=== PATIENT | male | born 1970 | race Caucasian/White ===

== ENCOUNTER 2021-01-21 09:04 | Inpatient (IN) | payer BC ==
[2021-01-21] VITALS (20 sets, daily range): BP systolic 79–133; BP diastolic 52–77
[~2021-01-21] VITALS: Ht 177.8 cm; Wt 88.6 kg
[2021-01-21] MEDS ORDERED: HEPARIN for IV BOLUS 10,000 UNIT/10 ML VIAL. ONE ×2 (09:18→10:05)
[2021-01-21] MEDS ORDERED: MIDAZOLAM HCL/PF 5 MG/5 ML VIAL. NS ONE (09:30)
--- NOTE | 2021-01-21 09:36 | RAD ---
Single AP view of the chest. Comparison: None. Indication: Intubation and chest pain Findings: Endotracheal tube is in good position 2.5 cm above the gibran. Nasogastric tube is seen with tip in t he body the stomach. The heart is at the upper limits of normal. There is no pneumothorax or effusio n. Bilateral interstitial opacities are identified. Impression: 1. Bilateral interstitial opacities likely CHF, however, atypical viral infection is also possible. Electronically signed by: Emory Rios MD (01/21/2021 9:34 AM) [id number]
[2021-01-21 09:39] LABS: BASO # 0.2 x10^3/uL (0.0-0.2); BASO % 1 % (0-3); EOS # 0.2 x10^3/uL (0.0-0.7); EOS % 1 % (0-3); HEMATOCRIT 47.8 % (39.0-53.0); HEMOGLOBIN 15.1 g/dL (13.0-17.5); LYMPH # 9.6 x10^3/uL (1.0-4.8); LYMPH % 62 % (24-48); MEAN CORPUSCULAR HEMOGLOBIN 32 pg (25-35); MEAN CORPUSCULAR HGB CONC 32 g/dL (31-37); MEAN CORPUSCULAR VOLUME 103 fL (79-100); MONO # 0.7 x10^3/uL (0.0-1.1); MONO % 5 % (0-9); NEUT # 4.8 x10^3/uL (1.8-7.7); NEUT % 31 % (31-73); PLATELET COUNT 304 x10^3/uL (140-400); RED BLOOD COUNT 4.66 x10^6/uL (4.30-5.70); RED CELL DISTRIBUTION WIDTH 14.6 % (11.5-14.5)
[2021-01-21] MEDS ORDERED: EPINEPHrine 1 MG/ML VIAL ONE (09:43)
[2021-01-21] MEDS ORDERED: EPINEPHrine SYRINGE 1 MG/10 ML SYRINGE ONE ×2 (09:44→09:46)
[2021-01-21] MEDS ORDERED: AMIODARONE 150 MG/3 ML VIAL ONE (09:46)
--- NOTE | 2021-01-21 09:46 | PHYS DOC ---
General Adult EDM: Chief Complaint: CHEST PAIN HPI: HPI: Patient is a 50-year-old male who was brought here by EMS from his workplace due to chest pain. EKG was done by EMS report of posterior wall RI? Code STEMI was activated . Patient became unresponsive, CODED in the back of the ambulance on the way here. Fishing Tackle Repairer proceeded with CPR and ROSC was achieved. Patient became awake and alert, he was brought here emergently. Upon arrival to ER patient awake alert, but was confused. Patient then became unresponsive, went into V. fib arrest. Patient was coded per ACLS protocol. Review of Systems: Review of Systems: not able to obtain due to condition. Heart Score: C/O Chest Pain: N/A Risk Factors: Risk Factors: DM, Current or recent (<one month) smoker, HTN, HLP, family history of CAD, obesity. Risk Scores: Score 0 - 3: 2.5% MACE over next 6 weeks - Discharge Home Score 4 - 6: 20.3% MACE over next 6 weeks - Admit for Clinical Observation Score 7 - 10: 72.7% MACE over next 6 weeks - Early Invasive Strategies Current Medications: Current Medications Medications (Trade) Dose Ordered Sig/Quinton Start Time Stop Time Status Last Admin Dose Admin Heparin Sodium (Porcine) (Heparin Sodium) 10,000 unit STK-MED ONCE 01/21/21 09:18 01/21/21 09:18 DC Midazolam HCl (Versed) 5 mg 1X ONCE 01/21/21 09:30 01/21/21 09:31 UNV Physical Exam: PE: Constitutional: Well developed, well nourished, IN MODERATE acute distress, non- toxic appearance. [] HENT: Normocephalic, atraumatic, bilateral external ears normal, oropharynx moist, no oral exudates, nose normal. [] Eyes: PERRLA, EOMI, conjunctiva normal, no discharge. [] Neck: Normal range of motion, no tenderness, supple, no stridor. [] Cardiovascular:Heart rate regular rhythm, no murmur [] Lungs & Thorax: Bilateral breath sounds clear to auscultation [] Abdomen: Bowel sounds normal, soft, no tenderness, no masses, no pulsatile masses. [] Skin: WARM, PALE. Back: No tenderness, no CVA tenderness. [] Extremities: No tenderness, no cyanosis, no clubbing, ROM intact, no edema. [] Neurologic: Alert BUT CONFUSED, normal motor function, normal sensory function, no focal deficits noted. [] Psychologic: Affect normal, judgement normal, mood normal. [] Current Patient Data: Labs: Laboratory Tests Test 01/21/21 09:25 01/21/21 11:37 01/21/21 11:50 01/21/21 13:30 White Blood Count 15.5 x10^3/uL Red Blood Count 4.66 x10^6/uL Hemoglobin 15.1 g/dL Hematocrit 47.8 % Mean Corpuscular Volume 103 fL Mean Corpuscular Hemoglobin 32 pg Mean Corpuscular Hemoglobin Concent 32 g/dL Red Cell Distribution Width 14.6 % Platelet Count 304 x10^3/uL Neutrophils (%) (Auto) 31 % Lymphocytes (%) (Auto) 62 % Monocytes (%) (Auto) 5 % Eosinophils (%) (Auto) 1 % Basophils (%) (Auto) 1 % Neutrophils # (Auto) 4.8 x10^3/uL Lymphocytes # (Auto) 9.6 x10^3/uL Monocytes # (Auto) 0.7 x10^3/uL Eosinophils # (Auto) 0.2 x10^3/uL Basophils # (Auto) 0.2 x10^3/uL Segmented Neutrophils % 18 % Lymphocytes % 81 % Monocytes % 1 % Smudge Cells Present Platelet Estimate Adequate Sodium Level 133 mmol/L Potassium Level 6.2 mmol/L Chloride Level 96 mmol/L Carbon Dioxide Level 13 mmol/L Anion Gap 24 Blood Urea Nitrogen 13 mg/dL Creatinine 1.8 mg/dL Estimated GFR (Cockcroft-Gault) 40.5 BUN/Creatinine Ratio 7 Glucose Level 428 mg/dL Calcium Level 7.9 mg/dL Magnesium Level 3.2 mg/dL Total Bilirubin 0.4 mg/dL Aspartate Amino Transf (AST/SGOT) 194 U/L Alanine Aminotransferase (ALT/SGPT) 203 U/L Alkaline Phosphatase 128 U/L Troponin I Quantitative 5.019 ng/mL II-Iil-X-Type Natriuretic Peptide 50 pg/mL Total Protein 6.6 g/dL Albumin 3.4 g/dL Albumin/Globulin Ratio 1.1 Lipase 135 U/L O2 Saturation 98 % Arterial Blood pH 7.05 Arterial Blood pCO2 at Patient Temp 36 mmHg Arterial Blood pO2 at Patient Temp 148 mmHg Arterial Blood HCO3 10 mmol/L Arterial Blood Base Excess -20 mmol/L FiO2 100 SARS-CoV-2 Antigen (Rapid) Negative Test 01/21/21 17:15 O2 Saturation 99 % Arterial Blood pH 7.21 Arterial Blood pCO2 at Patient Temp 34 mmHg Arterial Blood pO2 at Patient Temp 386 mmHg Arterial Blood HCO3 13 mmol/L Arterial Blood Base Excess -13 mmol/L FiO2 100 Current Medications Medications (Trade) Dose Ordered Sig/Quinton Route PRN Reason Start Time Stop Time Status Last Admin Dose Admin Heparin Sodium (Porcine) (Heparin Sodium) 10,000 unit STK-MED ONCE .ROUTE 01/21/21 09:18 01/21/21 09:18 DC Midazolam HCl (Versed) 5 mg 1X ONCE NS 01/21/21 09:30 01/21/21 09:52 DC 01/21/21 08:00 Epinephrine HCl (Adrenalin) 1 mg STK-MED ONCE .ROUTE 01/21/21 09:43 01/21/21 09:44 DC Epinephrine HCl (EPINEPHrine SYRINGE) 1 mg STK-MED ONCE .ROUTE 01/21/21 09:44 01/21/21 09:44 DC Dopamine HCl/ Dextrose 250 ml @ As Directed STK-MED ONCE IV 01/21/21 09:46 01/21/21 09:47 DC Bivalirudin (Angiomax) 250 mg STK-MED ONCE IV 01/21/21 09:53 01/21/21 09:53 DC Nitroglycerin (Nitroglycerin) 200 mcg STK-MED ONCE .ROUTE 01/21/21 10:00 01/21/21 10:00 DC Heparin Sodium (Porcine) (Heparin Sodium) 10,000 unit STK-MED ONCE .ROUTE 01/21/21 10:05 01/21/21 10:05 DC Nitroglycerin (Nitroglycerin) 200 mcg 1X ONCE IART 01/21/21 10:30 01/21/21 10:32 DC 01/21/21 09:59 Heparin Sodium/ Sodium Chloride (HEPARIN for ARTERIAL LINE FLUSH) 1,000 unit 1X ONCE IART 01/21/21 10:30 01/21/21 10:32 DC 01/21/21 10:30 Heparin Sodium/ Sodium Chloride (HEPARIN for ARTERIAL LINE FLUSH) 1,000 unit 1X ONCE IART 01/21/21 10:30 01/21/21 10:32 DC 01/21/21 10:30 Iodixanol (Visipaque 320) 100 ml 1X ONCE IART 01/21/21 10:30 01/21/21 10:32 DC 01/21/21 10:30 Bivalirudin (Angiomax) 250 mg 1X ONCE IV 01/21/21 10:30 01/21/21 10:32 DC 01/21/21 09:54 Lidocaine HCl (Lidocaine 1% 20ml Vial) 20 ml 1X ONCE INJ 01/21/21 10:30 01/21/21 10:32 DC 01/21/21 09:49 Dopamine HCl/ Dextrose 250 ml @ 14.438 mls/ hr 1X ONCE IV 01/21/21 10:30 01/21/21 14:04 DC 01/21/21 09:48 Epinephrine HCl (EPINEPHrine SYRINGE) 1.5 mg 1X ONCE IV 01/21/21 10:15 01/21/21 10:29 DC 01/21/21 09:57 Clopidogrel Bisulfate (Plavix) 600 mg 1X ONCE PO 01/21/21 10:30 01/21/21 10:32 DC 01/21/21 10:30 Aspirin (Yung Aspirin) 325 mg 1X ONCE PO 01/21/21 10:30 01/21/21 15:44 DC 01/21/21 10:30 Heparin Sodium (Porcine) (Heparin 5,000 Units/1,000ml NS) 5,000 unit 1X ONCE IV 01/21/21 10:30 01/21/21 10:32 DC 01/21/21 10:05 Sodium Chloride 1,000 ml @ 75 mls/hr [id number] IV 01/21/21 10:30 Aspirin (Ecotrin) 325 mg DAILYWBKFT PO 01/22/21 08:00 01/21/21 10:34 DC Clopidogrel Bisulfate (Plavix) 75 mg DAILYWBKFT PO 01/22/21 08:00 01/21/21 10:34 DC Atorvastatin Calcium (Lipitor) 40 mg QHS PO 01/21/21 21:00 01/21/21 10:34 DC Aspirin (Ecotrin) 325 mg DAILYWBKFT PO 01/22/21 08:00 01/21/21 17:18 DC Clopidogrel Bisulfate (Plavix) 75 mg DAILYWBKFT PO 01/22/21 08:00 Atorvastatin Calcium (Lipitor) 40 mg QHS PO 01/21/21 21:00 Etomidate (Amidate) 20 mg STK-MED ONCE IV 01/21/21 11:01 01/21/21 11:01 DC Vecuronium [place] (Norcuron Bolus) 10 mg STK-MED ONCE IV 01/21/21 11:01 01/21/21 11:01 DC Succinylcholine Chloride (Anectine) 200 mg STK-MED ONCE .ROUTE 01/21/21 11:03 01/21/21 11:03 DC Norepinephrine Bitartrate 8 mg/ Dextrose 258 ml @ 14.9 mls/hr CONT PRN IV PER PROTOCOL 01/21/21 11:15 01/21/21 15:38 DC 01/21/21 12:00 Lorazepam (Ativan Inj) 2 mg STK-MED ONCE .ROUTE 01/21/21 11:20 01/21/21 11:20 DC Fentanyl Citrate (Fentanyl 2ml Vial) 25 mcg PRN Q1HR PRN IV SEE COMMENTS 01/21/21 11:30 01/21/21 15:44 DC Fentanyl Citrate (Fentanyl 2ml Vial) 50 mcg PRN Q1HR PRN IV SEE COMMENTS 01/21/21 11:30 01/21/21 15:44 DC Morphine Sulfate (Morphine Sulfate) 2 mg PRN Q1HR PRN IV SEE COMMENTS. 01/21/21 11:30 Morphine Sulfate (Morphine Sulfate) 4 mg PRN Q1HR PRN IV SEE COMMENTS. 01/21/21 11:30 Lorazepam (Ativan Inj) 0.5 mg PRN Q6HRS PRN IVP ANXIETY / AGITATION 01/21/21 13:00 01/21/21 15:44 DC Lorazepam (Ativan) 1 mg PRN Q6HRS PRN PO ANXIETY / AGITATION 01/21/21 13:00 Ondansetron HCl (Zofran) 4 mg PRN Q6HRS PRN IVP NAUSEA/VOMITING 01/21/21 13:00 Al Hydroxide/Mg Hydroxide (Mylanta Plus Xs) 30 ml PRN Q3HRS PRN PO HEARTBURN / GAS 01/21/21 13:00 Calcium Carbonate/ Glycine (Tums) 500 mg PRN Q3HRS PRN PO HEARTBURN / GAS 01/21/21 13:00 Famotidine (Pepcid Vial) 20 mg BID IVP 01/21/21 21:00 Heparin Sodium (Porcine) (Heparin Sodium) 5,000 unit Q8HRS SQ 01/21/21 14:00 01/21/21 13:40 DC Sodium Chloride (Normal Saline Flush) 3 ml QSHIFT PRN IV AFTER MEDS AND BLOOD DRAWS 01/21/21 13:00 Morphine Sulfate (Morphine Sulfate) 2 mg PRN Q1HR PRN IV PAIN 01/21/21 13:00 Lorazepam (Ativan Inj) 2 mg PRN Q10MIN PRN IVP SEE COMMENTS 01/21/21 13:30 Midazolam HCl (Versed) 5 mg STK-MED ONCE .ROUTE 01/21/21 13:33 01/21/21 13:33 DC Midazolam HCl (Versed) 5 mg 1X ONCE IV 01/21/21 13:45 01/21/21 13:51 DC 01/21/21 13:45 Heparin Sodium/ Dextrose 250 ml @ 9.24 mls/hr CONT PRN IV PER PROTOCOL 01/21/21 13:45 01/21/21 15:24 Heparin Sodium (Porcine) (Heparin Sodium) 1,950 unit PRN Q6HRS PRN IV FOR UFH LEVEL LESS THAN 0.2 01/21/21 13:45 Fentanyl Citrate (Fentanyl 2ml Vial) 100 mcg 1X ONCE IV 01/21/21 13:30 01/21/21 15:44 DC Midazolam HCl (Versed) 2 mg 1X ONCE IV 01/21/21 13:30 01/21/21 14:03 DC Magnesium Sulfate/ Dextrose 100 ml @ 100 mls/hr 1X ONCE IV 01/21/21 13:30 01/21/21 15:44 DC Buspirone HCl (Buspar) 30 mg Q8H NG 01/21/21 14:00 01/21/21 15:44 DC Acetaminophen (Tylenol) 650 mg Q4HRS NG 01/21/21 14:00 01/21/21 15:44 DC Glycerin/ Hypromellose/ Polyethylene (Artificial Tears) 1 drop Q6HRS OU 01/21/21 18:00 Glycerin/ Hypromellose/ Polyethylene (Artificial Tears) 1 drop PRN Q15MIN PRN OU DRY EYE 01/21/21 13:30 Pantoprazole Sodium (PROTONIX VIAL for IV PUSH) 40 mg DAILY IVP 01/21/21 14:00 01/21/21 15:44 DC Fentanyl Citrate 30 ml @ 0 mls/hr CONT PRN IV PER PROTOCOL. 01/21/21 13:30 01/21/21 15:00 Midazolam HCl 100 ml @ 2 mls/hr CONT PRN IV PER PROTOCOL 01/21/21 13:30 Vecuronium [place] (Norcuron Bolus) 8 mg PRN Q1HR PRN IV SHIVERING 01/21/21 13:30 01/21/21 15:44 DC Sodium Bicarbonate 150 meq/Dextrose 1,150 ml @ 75 mls/hr [id number] IV 01/21/21 14:00 01/21/21 14:00 Dopamine HCl/ Dextrose 250 ml @ 14.438 mls/ hr CONT PRN IV SEE I/O RECORD 01/21/21 14:00 01/21/21 14:00 Aspirin (Yung Aspirin) 325 mg DAILYWBKFT PO 01/22/21 08:00 Laboratory Tests Test 01/21/21 09:25 White Blood Count 15.5 x10^3/uL (4.0-11.0) H Red Blood Count 4.66 x10^6/uL (4.30-5.70) Hemoglobin 15.1 g/dL (13.0-17.5) Hematocrit 47.8 % (39.0-53.0) Mean Corpuscular Volume 103 fL (79-100) H Mean Corpuscular Hemoglobin 32 pg (25-35) Mean Corpuscular Hemoglobin Concent 32 g/dL (31-37) Red Cell Distribution Width 14.6 % (11.5-14.5) H Platelet Count 304 x10^3/uL (140-400) Neutrophils (%) (Auto) 31 % (31-73) Lymphocytes (%) (Auto) 62 % (24-48) H Monocytes (%) (Auto) 5 % (0-9) Eosinophils (%) (Auto) 1 % (0-3) Basophils (%) (Auto) 1 % (0-3) Neutrophils # (Auto) 4.8 x10^3/uL (1.8-7.7) Lymphocytes # (Auto) 9.6 x10^3/uL (1.0-4.8) H Monocytes # (Auto) 0.7 x10^3/uL (0.0-1.1) Eosinophils # (Auto) 0.2 x10^3/uL (0.0-0.7) Basophils # (Auto) 0.2 x10^3/uL (0.0-0.2) Platelet Estimate Pending Laboratory Tests 01/21/21 09:25 EKG: EKG: [] Radiology/Procedures: Radiology/Procedures: [][facility] [id number] [place] [address] IMAGING REPORT Signed PATIENT: NICHO REEVESACCOUNT: [id number] : 04/12/1968 LOCATION: ER AGE: 52 SEX: M EXAM STATUS: PRE ER ORD. PHYSICIAN: MORALES QUIROS DO REASON: CHEST PAIN/ FULL CODE PROCEDURE: PORTABLE CHEST 1V Single AP view of the chest. Comparison: None. Indication: Intubation and chest pain Findings: Endotracheal tube is in good position 2.5 cm above the gibran. Nasogastric tube is seen with tip in the body the stomach. The heart is at the upper limits of normal. There is no pneumothorax or effusion. Bilateral interstitial opacities are identified. Impression: 1. Bilateral interstitial opacities likely CHF, however, atypical viral infection is also possible. Electronically signed by: Emory Rios MD (01/21/2021 9:34 AM) [id number] DICTATED and SIGNED BY: EMORY RIOS MD DATE: 01/21/21 [id number] 0 Intubation: Indication: Respiratory failure Consent: Unable to give consent due to emergent nature. Medications Used: see nursing note Procedure: The patient was placed in the appropriate position. Intubation was performed by this physician, using glidescope, cord visualization method, ET tube # 8, secured 24 at gumline. Initial confirmation of placement included b ilateral breath sounds, tube fogging, adequate chest rise, adequate pulse oximetry reading. A chest x-ray to verify correct placement of the tube showed appropriate tube position. Complications: none. Course & Med Decision Making: Course & Med Decision Making Pertinent Labs and Imaging studies reviewed. (See chart for details) Patient is a 50-year-old male who was brought here by EMS from his workplace due to chest pain. Patient became unresponsive, CODED in the back of the ambulance on the way here. Fishing Tackle Repairer proceeded with CPR and ROSC was achieved. Patient became awake and alert, he was brought here emergently. Upon arrival to ER patient awake alert, but was confused. Patient then became unresponsive, went into V. fib arrest. Patient was coded per ACLS protocol. Patient was shocked 1 time , patient went into PEA. CPR continued . ROSC was achieved again. Patient was intubated by this physician. Strip Polisher on-call Dr. Camargo at bedside, patient was taken to the [facility] emergently. I discussed the case with Dr. Correa , the hospitalist international logistics analyst who agreed to admit the patient. Xochitl Disclaimer: Xochitl Disclaimer: This electronic medical record was generated, in whole or in part, using a voice recognition dictation system. Departure Departure Impression: Primary Impression: STEMI (ST elevation myocardial infarction) Disposition: ADMITTED INPATIENT Admitting Physician: CRISTOPHERS (Dr. Ziggy Correa) Condition: CRITICAL ISHAANMORALES Lombardi DO Jan 21, 2021 09:45
[2021-01-21] MEDS ORDERED: BIVALIRUDIN 250 MG VIAL. IV ONE ×2 (09:53→10:30)
[2021-01-21] MEDS ORDERED: NITROGLYCERIN 200 MCG/2 ML SYRINGE FOR CATH/VASC LAB. ONE (10:00)
[2021-01-21] MEDS ORDERED: EPINEPHrine SYRINGE 1 MG/10 ML SYRINGE IV ONE (10:15)
--- NOTE | 2021-01-21 10:26 | PDOC2 ---
CONSULT Date of Consult Date of Consult DATE: 01/21/21 TIME: 10:25 Reason for Consult Reason for Consult: STEMI, cardiac arrest Referring Physician Referring Physician: Dr. Hutchison Identification/Chief Complaint Chief Complaint CP, cardiac arrest Source Source: Chart review History of Present Illness Reason for Visit: 50 y/o male with history of hypertension was apparently at work when he had sudden onset retrosternal chest pressure. When EMS arrived, he had cardiac arrest and possible seizure. He was noted to be in ventricular fibrillation and underwent CPR and defibrillation. EKG showed acute posterior ST elevations and code STEMI was activated. He had cardiopulmonary arrest again in our ED and underwent CPR, defibrillation for VF and intubation for acute respiratory failure. He received few doses of epinephrine for PEA. He was taken emergently to cardiac laborer wrecking and salvaging where he was found to have 95% LCX stenosis and underwent PCI/PEDRO placement. Since his cardiogenic shock did not improve despite IVF, dopamine and levophed infusions, he underwent intra-aortic balloon pump placement for hemodynamic support Past Medical History Cardiovascular: HTN Past Surgical History Past Surgical History cannot be obtained Family History Family History unable to obtain Social History Social History unable to obtain Current Problem List Problem List Problems Medical Problems: (1) STEMI (ST elevation myocardial infarction) Status: Acute Current Medications Current Medications Current Medications Heparin Sodium (Porcine) (Heparin Sodium) 10,000 unit STK-MED ONCE .ROUTE ; Start 01/21/21 at 09:18; Stop 01/21/21 at 09:18; Status DC Midazolam HCl (Versed) 5 mg 1X ONCE NS ; Start 01/21/21 at 09:30; Stop 01/21/21 at 09:52; Status DC Epinephrine HCl (Adrenalin) 1 mg STK-MED ONCE .ROUTE ; Start 01/21/21 at 09:43; Stop 01/21/21 at 09:44; Status DC Epinephrine HCl (EPINEPHrine SYRINGE) 1 mg STK-MED ONCE .ROUTE ; Start 01/21/21 at 09:44; Stop 01/21/21 at 09:44; Status DC Dopamine HCl/ Dextrose 250 ml @ As Directed STK-MED ONCE IV ; Start 01/21/21 at 09:46; Stop 01/21/21 at 09:47; Status DC Bivalirudin (Angiomax) 250 mg STK-MED ONCE IV ; Start 01/21/21 at 09:53; Stop 01/21/21 at 09:53; Status DC Nitroglycerin (Nitroglycerin) 200 mcg STK-MED ONCE .ROUTE ; Start 01/21/21 at 10:00; Stop 01/21/21 at 10:00; Status DC Heparin Sodium (Porcine) (Heparin Sodium) 10,000 unit STK-MED ONCE .ROUTE ; Start 01/21/21 at 10:05; Stop 01/21/21 at 10:05; Status DC Nitroglycerin (Nitroglycerin) 200 mcg 1X ONCE IART ; Start 01/21/21 at 10:15; Stop 01/21/21 at 10:16; Status UNV Heparin Sodium/ Sodium Chloride (HEPARIN for ARTERIAL LINE FLUSH) 1,000 unit 1X ONCE IART ; Start 01/21/21 at 10:15; Stop 01/21/21 at 10:16; Status UNV Heparin Sodium/ Sodium Chloride (HEPARIN for ARTERIAL LINE FLUSH) 1,000 unit 1X ONCE IART ; Start 01/21/21 at 10:15; Stop 01/21/21 at 10:16; Status UNV Iodixanol (Visipaque 320) 100 ml 1X ONCE IART ; Start 01/21/21 at 10:15; Stop 01/21/21 at 10:16; Status UNV Bivalirudin (Angiomax) 250 mg 1X ONCE IV ; Start 01/21/21 at 10:15; Stop 01/21/21 at 10:16; Status UNV Lidocaine HCl (Lidocaine 1% 20ml Vial) 20 ml 1X ONCE INJ ; Start 01/21/21 at 10:15; Stop 01/21/21 at 10:16; Status UNV Dopamine HCl/ Dextrose 250 ml @ 14.438 mls/ hr 1X ONCE IV ; Start 01/21/21 at 10:15; Stop 01/22/21 at 03:33; Status UNV Epinephrine HCl (EPINEPHrine SYRINGE) 1.5 mg 1X ONCE IV ; Start 01/21/21 at 10:15; Stop 01/21/21 at 10:16; Status UNV Clopidogrel Bisulfate (Plavix) 600 mg 1X ONCE PO ; Start 01/21/21 at 10:15; Stop 01/21/21 at 10:16; Status UNV Allergies Allergies: Coded Allergies: Unable to Assess (Unverified , 01/21/21) ROS Review of System cannot be obtained Eyes: No Loss of vision Physical Exam General: Other (intubated) Lungs: Clear to auscultation Heart: Regular rate Abdomen: Soft Extremities: No edema Labs Labs Laboratory Tests Test 01/21/21 09:25 White Blood Count 15.5 x10^3/uL (4.0-11.0) Red Blood Count 4.66 x10^6/uL (4.30-5.70) Hemoglobin 15.1 g/dL (13.0-17.5) Hematocrit 47.8 % (39.0-53.0) Mean Corpuscular Volume 103 fL (79-100) Mean Corpuscular Hemoglobin 32 pg (25-35) Mean Corpuscular Hemoglobin Concent 32 g/dL (31-37) Red Cell Distribution Width 14.6 % (11.5-14.5) Platelet Count 304 x10^3/uL (140-400) Neutrophils (%) (Auto) 31 % (31-73) Lymphocytes (%) (Auto) 62 % (24-48) Monocytes (%) (Auto) 5 % (0-9) Eosinophils (%) (Auto) 1 % (0-3) Basophils (%) (Auto) 1 % (0-3) Neutrophils # (Auto) 4.8 x10^3/uL (1.8-7.7) Lymphocytes # (Auto) 9.6 x10^3/uL (1.0-4.8) Monocytes # (Auto) 0.7 x10^3/uL (0.0-1.1) Eosinophils # (Auto) 0.2 x10^3/uL (0.0-0.7) Basophils # (Auto) 0.2 x10^3/uL (0.0-0.2) Laboratory Tests Test 01/21/21 09:25 White Blood Count 15.5 x10^3/uL (4.0-11.0) Red Blood Count 4.66 x10^6/uL (4.30-5.70) Hemoglobin 15.1 g/dL (13.0-17.5) Hematocrit 47.8 % (39.0-53.0) Mean Corpuscular Volume 103 fL (79-100) Mean Corpuscular Hemoglobin 32 pg (25-35) Mean Corpuscular Hemoglobin Concent 32 g/dL (31-37) Red Cell Distribution Width 14.6 % (11.5-14.5) Platelet Count 304 x10^3/uL (140-400) Neutrophils (%) (Auto) 31 % (31-73) Lymphocytes (%) (Auto) 62 % (24-48) Monocytes (%) (Auto) 5 % (0-9) Eosinophils (%) (Auto) 1 % (0-3) Basophils (%) (Auto) 1 % (0-3) Neutrophils # (Auto) 4.8 x10^3/uL (1.8-7.7) Lymphocytes # (Auto) 9.6 x10^3/uL (1.0-4.8) Monocytes # (Auto) 0.7 x10^3/uL (0.0-1.1) Eosinophils # (Auto) 0.2 x10^3/uL (0.0-0.7) Basophils # (Auto) 0.2 x10^3/uL (0.0-0.2) Assessment/Plan Assessment/Plan 1. Acute posterior wall STEMI: s/p PCI/PEDRO to LCX. Continue DAPT and secondary prevention 2. Ventricular fibrillation and cardiac arrest - ischemic etiology. Continue to monitor 3. Cardiogenic shock, acute diastolic heart failure: s/p IABP insertion and on pressors. LVEDP elevated and Ventriculogram showed EF 50% and severe MR. We will diurese gently. Continue hypothermia protocol 4. Mitral Regurgitation probably from papillary muscle dysfunction seen with posterior CT. Check 2D echo for further evaluation 5. Acute respiratory failure s/p intubation. Continue vent management per pulmonary 6. Metabolic acidosis, hyperkalemia: per IM 7. Transaminitis: probably from cardiogenic shock Guarded prognosis Total critical care time spent evaluating and managing patient 45 minutes MISHEL YOUNGER MD Jan 21, 2021 10:25
[2021-01-21] MEDS ORDERED: CLOPIDOGREL BISULFATE 75 MG TABLET PO ONE (10:30)
[2021-01-21] MEDS ORDERED: NITROGLYCERIN 200 MCG/2 ML SYRINGE FOR CATH/VASC LAB. IART ONE (10:30)
[2021-01-21] MEDS ORDERED: IODIXANOL 320 MG/ML 100 ML VIAL. IART ONE (10:30)
[2021-01-21] MEDS: IV 1/2 NORMAL SALINE 1,000 ML IV SCH ×2 (10:30→22:44)
[2021-01-21] MEDS ORDERED: ASPIRIN 325 MG TABLET PO ONE (10:30)
[2021-01-21] MEDS ORDERED: LIDOCAINE 1% Multi-Dose 20 ML VIAL. INJ ONE (10:30)
--- NOTE | 2021-01-21 10:44 | CARD ---
MR#: [id number] Date of Study: 01/21/2021 Ordering Physician: MISHEL YOUNGER, Referring Physician: MISHEL YOUNGER, Tech: RT Dann(R) APPROVED REPORT Technologist: RT Dann(R) Nurse: Katy Jackson RN Procedure(s) performed: 1. Left heart catheterization, selective coronary angiography and left ventr iculography 2. Successful intra-aortic balloon pump placement for hemodynamic support FL TIME: 7.6 MINS DOSE: 64 GYCM2 CONTRAST: 157 ML INDICATION The indication(s) include : 52-year-old male was brought by EMS after he had chest pain and cardiac a rrest secondary to VT/VF needing defibrillation, when he was at work earlier today. EKG showed no acu te posterior wall ST elevation myocardial infarction. In our ED, he had cardiopulmonary arrest necess itating intubation, defibrillation for ventricular fibrillation followed by CPR for PEA. He was then taken emergently for cardiac catheterization and primary PCI/stent placement. Door to balloon time pr obably delayed due to resuscitation attempts.. [facility] Clinical Frailty Scale [facility] Clinical Frailty Scale: Managing Well Heart Failure Heart Failure: No CASE TECHNIQUE IV conscious sedation was used throughout procedure with appropriate monitoring and was performed in the presence of a registered nurse who was an independent trained observer other than the physician p erforming the procedure. During this case, Fluoroscopy and low osmolar contrast were used for imaging . Specimen(s) Removed: No Estimated Blood loss: 15 cc's. PROCEDURE NARRATIVE Informed consent could not be obtained since patient was intubated and family was not available. Angela jaimes was brought to the cardiac [employer] and his right groin was prepped and draped in the usual [facility] ion. 20 cc of 2% lidocaine was infiltrated into the skin and subcutaneous tissues for local anesthes ia. Arterial and venous accesses were obtained in the right common femoral artery and vein respectiv sanam and 6 and 5 Kazakh sheaths inserted. 6 Kazakh JL4 and JR4 catheters were then used to perform se lective angiography of the left and right coronary arteries. 6 Kazakh pigtail catheter was used to p erform left ventriculography at the end of procedure. The following findings were noted: FINDINGS 1. Hemodynamics: Elevated left ventricular end-diastolic pressure of 26 mmHg consistent with acute d iastolic heart failure. No pullback gradient across the aortic valve. 2. Left ventriculography: Borderline normal left ventricle systolic function with ejection fraction estimated at 50%. Severe mitral regurgitation noted. 3. Selective coronary angiography: a. The left main coronary artery arose from the left sinus of Valsalva, gave rise to the left anteri or descending and left circumflex arteries and did not show any significant stenosis. b. The left anterior descending artery showed 30% stenosis in the midsegment. The diagonal branch s howed 50% stenosis in the proximal segment. c. The left circumflex artery showed a critical 95 to 99% stenosis involving the mid segment. d. The right coronary artery was a large and dominant vessel arising from the right sinus of Valsalv a that did not show any significant stenosis. INTERVENTION The left main coronary artery was engaged with a 6 Kazakh XB 3.5 guide catheter. The critical lesion in the left circumflex artery was then crossed with a 0.014 inch [employer] guidewire. This was predilated with a 2.0 x 15 mm Euphora balloon following which this was successfully treated with a 2 .5 x 18 mm resolute Musella drug-eluting stent. Follow-up angiography showed resolution of the lesion t o 0% with good distal flow. Since patient is cardiogenic shock did not improve despite being placed on Levophed and dopamine infusions, we decided to insert intra-aortic balloon pump percutaneously. T he sheath in the right groin was exchanged to the 8 Kazakh IABP sheath. A 50 cc Sensation Plus intra -aortic balloon pump catheter was then advanced and positioned appropriately under fluoroscopy damaris brooks. This was started and set at 1:1 support. Patient tolerated procedure well. He will be monitore d closely in intensive care unit with gradual weaning of pressors and IABP. BELLA Flow BELLA Flow (Pre-Intervention): BELLA-1 BELLA Flow (Post-Intervention): BELLA-3 Conclusion 1. Severe single-vessel coronary disease involving the left circumflex artery 2. Successful PCI/drug-eluting stent placement to the left circumflex artery 3. Borderline normal left ventricular systolic function with ejection fraction estimated at 50% 4. Severe mitral regurgitation most probably secondary to papillary muscle dysfunction due to engine mechanic ior wall NE. 5. Successful percutaneous insertion of intra-aortic balloon pump for hemodynamic support Recommendations 1. Aspirin 325 mg daily 2. Plavix 75 mg daily 3. 2D echo to further evaluate the pathophysiology of his mitral regurgitation 4. Wean pressors and IABP off as tolerated Signed by : Mishel Younger, Electronically Approved : 01/21/2021 10:43:44
[2021-01-21] MEDS ORDERED: ETOMIDATE 20 MG/10 ML VIAL. IV ONE (11:01)
[2021-01-21] MEDS ORDERED: VECURONIUM BOLUS 10 MG VIAL. IV ONE (11:01)
[2021-01-21] MEDS ORDERED: SUCCINYLCHOLINE 200 MG/10 ML VIAL. ONE (11:03)
[2021-01-21] MEDS ORDERED: NOREPINEPHRINE VIAL 8 MG in IV DEXTROSE 5% 250 ML IV PRN ×2 (11:15→20:45)
[2021-01-21 11:17] LABS: % LYMPHS 81 % (24-48); % MONOS 1 % (0-10); % SEGS 18 % (35-66); PLT ESTIMATE ADEQUATE (ADEQUATE); SMUDGE CELLS PRESENT
[2021-01-21] MEDS ORDERED: fentaNYL PF VIAL 100 MCG/2 ML VIAL IV PRN ×2 (11:30)
[2021-01-21] MEDS ORDERED: MORPHINE SULFATE 4 MG/ML INJ. IV PRN (11:30)
[2021-01-21] MEDS ORDERED: MORPHINE SULFATE 2 MG/ML INJ. IV PRN ×2 (11:30→13:00)
--- NOTE | 2021-01-21 11:50 | PDOC ---
PULMONARY PROGRESS NOTES DATE: 01/21/21 TIME: 11:49 Vitals Vital Signs Date Time Temp Pulse Resp B/P (MAP) Pulse Ox O2 Delivery O2 Flow Rate FiO2 01/21/21 11:10 106 17 Ventilator 15.0 01/21/21 10:50 100 Labs Laboratory Tests Test 01/21/21 09:25 White Blood Count 15.5 x10^3/uL (4.0-11.0) Red Blood Count 4.66 x10^6/uL (4.30-5.70) Hemoglobin 15.1 g/dL (13.0-17.5) Hematocrit 47.8 % (39.0-53.0) Mean Corpuscular Volume 103 fL (79-100) Mean Corpuscular Hemoglobin 32 pg (25-35) Mean Corpuscular Hemoglobin Concent 32 g/dL (31-37) Red Cell Distribution Width 14.6 % (11.5-14.5) Platelet Count 304 x10^3/uL (140-400) Neutrophils (%) (Auto) 31 % (31-73) Lymphocytes (%) (Auto) 62 % (24-48) Monocytes (%) (Auto) 5 % (0-9) Eosinophils (%) (Auto) 1 % (0-3) Basophils (%) (Auto) 1 % (0-3) Neutrophils # (Auto) 4.8 x10^3/uL (1.8-7.7) Lymphocytes # (Auto) 9.6 x10^3/uL (1.0-4.8) Monocytes # (Auto) 0.7 x10^3/uL (0.0-1.1) Eosinophils # (Auto) 0.2 x10^3/uL (0.0-0.7) Basophils # (Auto) 0.2 x10^3/uL (0.0-0.2) Segmented Neutrophils % 18 % (35-66) Lymphocytes % 81 % (24-48) Monocytes % 1 % (0-10) Smudge Cells Present Platelet Estimate Adequate (ADEQUATE) Laboratory Tests Test 01/21/21 09:25 White Blood Count 15.5 x10^3/uL (4.0-11.0) Red Blood Count 4.66 x10^6/uL (4.30-5.70) Hemoglobin 15.1 g/dL (13.0-17.5) Hematocrit 47.8 % (39.0-53.0) Mean Corpuscular Volume 103 fL (79-100) Mean Corpuscular Hemoglobin 32 pg (25-35) Mean Corpuscular Hemoglobin Concent 32 g/dL (31-37) Red Cell Distribution Width 14.6 % (11.5-14.5) Platelet Count 304 x10^3/uL (140-400) Neutrophils (%) (Auto) 31 % (31-73) Lymphocytes (%) (Auto) 62 % (24-48) Monocytes (%) (Auto) 5 % (0-9) Eosinophils (%) (Auto) 1 % (0-3) Basophils (%) (Auto) 1 % (0-3) Neutrophils # (Auto) 4.8 x10^3/uL (1.8-7.7) Lymphocytes # (Auto) 9.6 x10^3/uL (1.0-4.8) Monocytes # (Auto) 0.7 x10^3/uL (0.0-1.1) Eosinophils # (Auto) 0.2 x10^3/uL (0.0-0.7) Basophils # (Auto) 0.2 x10^3/uL (0.0-0.2) Segmented Neutrophils % 18 % (35-66) Lymphocytes % 81 % (24-48) Monocytes % 1 % (0-10) Smudge Cells Present Platelet Estimate Adequate (ADEQUATE) Impression . Full note dictated Out of hospital cardiopulmonary arrest Continue current support We will look into the possibility of initiating hypothermic protocol. GUILLE FELIX MD Jan 21, 2021 11:50
[2021-01-21 11:58] LABS: BASE EXCESS COOX -20 mmol/L (-3-3); HCO3 COOX 10 mmol/L (21-28); PCO2 COOX 36 mmHg (35-46); PO2 COOX 148 mmHg (75-108); SAT O2 COOX 98 % (92-99)
[2021-01-21 12:23] LABS: ALBUMIN 3.4 g/dL (3.4-5.0); ALBUMIN/GLOBULIN RATIO 1.1 (1.0-1.7); CALCIUM 7.9 mg/dL (8.5-10.1); CREATININE 1.8 mg/dL (0.7-1.3); GFR 40.5; MAGNESIUM 3.2 mg/dL (1.8-2.4); TOTAL BILIRUBIN 0.4 mg/dL (0.2-1.0); TOTAL PROTEIN 6.6 g/dL (6.4-8.2)
[2021-01-21 12:29] LABS: POTASSIUM 6.2 mmol/L (3.5-5.1)
--- NOTE | 2021-01-21 12:29 | EKG ---
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
--- NOTE | 2021-01-21 12:34 | CONS ---
DATE OF CONSULTATION: 01/21/2021 ATTENDING PHYSICIAN: Ziggy Correa MD. REASON FOR CONSULTATION: The patient is seen in pulmonary consultation at the request of Dr. Correa for vent management. HISTORY OF PRESENT ILLNESS: The patient is a 50-year-old I saw for the [id number] cardiopulmonary arrest. He was worked up by EMS after he has some chest pain and cardiac arrest secondary to V-tach, V-Fib needing defibrillation. Apparently, the patient was at work today and started having some difficulty and subsequently had a cardiac arrest. EKG showed an acute posterior wall ST segment myocardial infarction. The patient was intubated in the Emergency Department. He also underwent defibrillation for ventricular fibrillation and CPR was initiated for PEA. He was taken emergently to the cardiac catheterization suite. He was found to have severe single vessel coronary artery disease involving the left circumflex artery. There was successful PCI and drug-eluting stent placement in the left circumflex artery. He had borderline normal left ventricular systolic function at 50%. He also had mitral regurgitation, suspect probably secondary to papillary muscle dysfunction due to the posterior wall [place]. The patient also had a percutaneous insertion of intraaortic balloon pump for hemodynamic support. He is currently in the intensive care unit. He has received some Versed. PAST MEDICAL HISTORY: Otherwise remarkable for epilepsy. His was at the bedside and he does not have any prior history of coronary artery disease or pulmonary pathology SOCIAL HISTORY: He does smoke. He works at [employer]. ALLERGIES: Unknown. CURRENT MEDICATIONS: List was reviewed at home. According to his , he only takes medication for epilepsy. He has not had a seizure for a prolonged period of time. PHYSICAL EXAMINATION: GENERAL: He is currently in the intensive care unit on pressure control ventilation 1:1 ratio, 100% FiO2 and 10 of PEEP. HEENT: Eyes: The pupils were fixed and nonreactive. CHEST: Full expansion. LUNGS: Scattered rhonchi. CARDIOVASCULAR: Regular rate and rhythm with S1, S2, no S3. ABDOMEN: Soft, nontender. EXTREMITIES: No clubbing, cyanosis or edema. NEUROLOGIC: The patient was unresponsive. His pupils were unresponsive. There was no oculocephalic reflex. A detailed neuro exam was not performed. LABORATORY DATA: Reviewed. White count was 15,000, hemoglobin and hematocrit were noted, platelet count was 304. Electrolytes are pending. Chest x-ray was personally reviewed, properly placed endotracheal tube. There was bilateral pulmonary infiltrates compatible with CHF. IMPRESSION: 1. Acute hypoxemic respiratory failure secondary to akx-jr-hewvkuxl cardiopulmonary arrest. 2. Zfn-pf-ulffszql cardiopulmonary arrest secondary to acute myocardial infarction. 3. Posterior wall myocardial infarction. 4. Status post emergent cardiac catheterization with successful percutaneous coronary intervention and drug-eluting stent to the left circumflex artery. 5. Status post insertion of intraaortic balloon pump for hemodynamic support. 6. Leukocytosis, suspect reactive. 7. History of epilepsy. 8. Cardiogenic shock. PLAN: 1. We will continue current support with a pressure control ventilation, repeat arterial blood gas. 2. Pressors to maintain mean arterial pressure above 60. The patient currently on norepinephrine and dopamine. 3. Monitor for any further arrhythmias. 4. Anticoagulation per Cardiology. 5. Repeat arterial blood gas and make adjustments to minute ventilations as necessary. 6. We will look into hypothermic protocol. The above was discussed with the at the bedside, I informed her that the next 24-48 hours will be critical in deciding whether he has suffered any anoxic brain injury. At this time, it is too early to make any judgment or calls. TETE DR: Juhi TID: [id number]
[2021-01-21] MEDS ORDERED: 0.9 % SODIUM CHLORIDE 10 ML DISP.SYRIN. IV PRN (13:00)
[2021-01-21] MEDS ORDERED: ONDANSETRON PF 4 MG/2 ML VIAL. IVP PRN (13:00)
[2021-01-21] MEDS ORDERED: CALCIUM CARBONATE 500 MG TAB.CHEW PO PRN (13:00)
[2021-01-21] MEDS ORDERED: MAG HYDROX/ALUMINUM HYD/SIMETH 30 ML ORAL.SUSP PO PRN (13:00)
[2021-01-21] MEDS ORDERED: MIDAZOLAM 100mg/100ml NS BAG 100 ML IV PRN (13:30)
[2021-01-21] MEDS ORDERED: MAGNESIUM SULFATE 1GM 100 ML IV ONE (13:30)
[2021-01-21] MEDS ORDERED: MIDAZOLAM HCL/PF 2 MG/2 ML VIAL. IV ONE (13:30)
[2021-01-21] MEDS ORDERED: POLYVINYL ALCOHOL 1.4% OPHTH SOLUTION 15ML BOTTLE. OU PRN (13:30)
[2021-01-21] MEDS ORDERED: fentaNYL PF VIAL 100 MCG/2 ML VIAL IV ONE (13:30)
[2021-01-21] MEDS ORDERED: VECURONIUM BOLUS 10 MG VIAL. IV PRN (13:30)
[2021-01-21] MEDS ORDERED: MIDAZOLAM HCL/PF 5 MG/5 ML VIAL. ONE (13:33)
--- NOTE | 2021-01-21 13:41 | PDOC1 ---
History and Physical Date of Admission Date of Admission DATE: 01/21/21 TIME: 13:07 Identification/Chief Complaint Chief Complaint STEMI Source Source: Caregiver, Chart review History of Present Illness History of Present Illness Patient is a 50-year-old male with past medical history HTN, epilepsy, anxiety, presents by EMS with complaints of chest pain. ST segment elevation was noted on EKG, and he was coded in route to the hospital by EMS. His presenting rhythm was reportedly V. tach. Upon arrival to the ED he was taken immediately to Speech Therapist and noted to have severe single-vessel coronary disease involving the left circumflex artery. He had successful PCI/drug-eluting stent placement to the left circumflex artery, and subsequently had successful percutaneous insertion of intra-aortic balloon pump for hemodynamic support. Initial lab results showed WBC 15.5, sodium 133, potassium 6.2, BUN 13, creatinine 1.8, CBG 428, AST 194, ALT 203, alkaline phos 128, troponin 5.019. ABG showed pH 7.05, PO2 148, HCO3 10. He was admitted to ICU for further medical management. Past Medical History Past Medical History HTN, epilepsy, anxiety Past Surgical History Past Surgical History Unable to obtain at this time due to clinical condition. Reviewed with patient's , but she denies surgical history. Family History Family History Unable to obtain at this time due to clinical condition. Reviewed with patient's , but she denies significant family history. Social History Smoke: 1 pack per day ALCOHOL: social Drugs: None Current Problem List Problem List Problems Medical Problems: (1) STEMI (ST elevation myocardial infarction) Status: Acute Current Medications Current Medications Current Medications Heparin Sodium (Porcine) (Heparin Sodium) 10,000 unit STK-MED ONCE .ROUTE ; Start 01/21/21 at 09:18; Stop 01/21/21 at 09:18; Status DC Midazolam HCl (Versed) 5 mg 1X ONCE NS Last administered on 01/21/21at 08:00; Start 01/21/21 at 09:30; Stop 01/21/21 at 09:52; Status DC Epinephrine HCl (Adrenalin) 1 mg STK-MED ONCE .ROUTE ; Start 01/21/21 at 09:43; Stop 01/21/21 at 09:44; Status DC Epinephrine HCl (EPINEPHrine SYRINGE) 1 mg STK-MED ONCE .ROUTE ; Start 01/21/21 at 09:44; Stop 01/21/21 at 09:44; Status DC Dopamine HCl/ Dextrose 250 ml @ As Directed STK-MED ONCE IV ; Start 01/21/21 at 09:46; Stop 01/21/21 at 09:47; Status DC Bivalirudin (Angiomax) 250 mg STK-MED ONCE IV ; Start 01/21/21 at 09:53; Stop 01/21/21 at 09:53; Status DC Nitroglycerin (Nitroglycerin) 200 mcg STK-MED ONCE .ROUTE ; Start 01/21/21 at 10:00; Stop 01/21/21 at 10:00; Status DC Heparin Sodium (Porcine) (Heparin Sodium) 10,000 unit STK-MED ONCE .ROUTE ; Start 01/21/21 at 10:05; Stop 01/21/21 at 10:05; Status DC Nitroglycerin (Nitroglycerin) 200 mcg 1X ONCE IART Last administered on 01/21/21at 09:59; Start 01/21/21 at 10:30; Stop 01/21/21 at 10:32; Status DC Heparin Sodium/ Sodium Chloride (HEPARIN for ARTERIAL LINE FLUSH) 1,000 unit 1X ONCE IART Last administered on 01/21/21at 10:30; Start 01/21/21 at 10:30; Stop 01/21/21 at 10:32; Status DC Heparin Sodium/ Sodium Chloride (HEPARIN for ARTERIAL LINE FLUSH) 1,000 unit 1X ONCE IART Last administered on 01/21/21at 10:30; Start 01/21/21 at 10:30; Stop 01/21/21 at 10:32; Status DC Iodixanol (Visipaque 320) 100 ml 1X ONCE IART Last administered on 01/21/21at 10:30; Start 01/21/21 at 10:30; Stop 01/21/21 at 10:32; Status DC Bivalirudin (Angiomax) 250 mg 1X ONCE IV Last administered on 01/21/21at 09:54; Start 01/21/21 at 10:30; Stop 01/21/21 at 10:32; Status DC Lidocaine HCl (Lidocaine 1% 20ml Vial) 20 ml 1X ONCE INJ Last administered on 01/21/21at 09:49; Start 01/21/21 at 10:30; Stop 01/21/21 at 10:32; Status DC Dopamine HCl/ Dextrose 250 ml @ 14.438 mls/ hr 1X ONCE IV Last administered on 01/21/21at 09:48; Start 01/21/21 at 10:30; Stop 01/22/21 at 03:48 Epinephrine HCl (EPINEPHrine SYRINGE) 1.5 mg 1X ONCE IV Last administered on 01/21/21at 09:57; Start 01/21/21 at 10:15; Stop 01/21/21 at 10:29; Status DC Clopidogrel Bisulfate (Plavix) 600 mg 1X ONCE PO Last administered on 01/21/21at 10:30; Start 01/21/21 at 10:30; Stop 01/21/21 at 10:32; Status DC Aspirin (Yung Aspirin) 325 mg 1X ONCE PO Last administered on 01/21/21at 10:30; Start 01/21/21 at 10:30; Stop 01/21/21 at 10:32; Status DC Heparin Sodium (Porcine) (Heparin 5,000 Units/1,000ml NS) 5,000 unit 1X ONCE IV Last administered on 01/21/21at 10:05; Start 01/21/21 at 10:30; Stop 01/21/21 at 10:32; Status DC Sodium Chloride 1,000 ml @ 75 mls/hr [id number] IV ; Start 01/21/21 at 10:30 Aspirin (Ecotrin) 325 mg DAILYWBKFT PO ; Start 01/22/21 at 08:00; Stop 01/21/21 at 10:34; Status DC Clopidogrel Bisulfate (Plavix) 75 mg DAILYWBKFT PO ; Start 01/22/21 at 08:00; Stop 01/21/21 at 10:34; Status DC Atorvastatin Calcium (Lipitor) 40 mg QHS PO ; Start 01/21/21 at 21:00; Stop 01/21/21 at 10:34; Status DC Aspirin (Ecotrin) 325 mg DAILYWBKFT PO ; Start 01/22/21 at 08:00 Clopidogrel Bisulfate (Plavix) 75 mg DAILYWBKFT PO ; Start 01/22/21 at 08:00 Atorvastatin Calcium (Lipitor) 40 mg QHS PO ; Start 01/21/21 at 21:00 Etomidate (Amidate) 20 mg STK-MED ONCE IV ; Start 01/21/21 at 11:01; Stop 01/21/21 at 11:01; Status DC Vecuronium [place] (Norcuron Bolus) 10 mg STK-MED ONCE IV ; Start 01/21/21 at 11:01; Stop 01/21/21 at 11:01; Status DC Succinylcholine Chloride (Anectine) 200 mg STK-MED ONCE .ROUTE ; Start 01/21/21 at 11:03; Stop 01/21/21 at 11:03; Status DC Norepinephrine Bitartrate 8 mg/ Dextrose 258 ml @ 14.9 mls/hr CONT PRN IV PER PROTOCOL; Start 01/21/21 at 11:15 Lorazepam (Ativan Inj) 2 mg STK-MED ONCE .ROUTE ; Start 01/21/21 at 11:20; Stop 01/21/21 at 11:20; Status DC Fentanyl Citrate (Fentanyl 2ml Vial) 25 mcg PRN Q1HR PRN IV SEE COMMENTS; Start 01/21/21 at 11:30 Fentanyl Citrate (Fentanyl 2ml Vial) 50 mcg PRN Q1HR PRN IV SEE COMMENTS; Start 01/21/21 at 11:30 Morphine Sulfate (Morphine Sulfate) 2 mg PRN Q1HR PRN IV SEE COMMENTS.; Start 01/21/21 at 11:30 Morphine Sulfate (Morphine Sulfate) 4 mg PRN Q1HR PRN IV SEE COMMENTS.; Start 01/21/21 at 11:30 Lorazepam (Ativan Inj) 0.5 mg PRN Q6HRS PRN IVP ANXIETY / AGITATION; Start 01/21/21 at 13:00; Status UNV Lorazepam (Ativan) 1 mg PRN Q6HRS PRN PO ANXIETY / AGITATION; Start 01/21/21 at 13:00; Status UNV Ondansetron HCl (Zofran) 4 mg PRN Q6HRS PRN IVP NAUSEA/VOMITING; Start 01/21/21 at 13:00; Status UNV Al Hydroxide/Mg Hydroxide (Mylanta Plus Xs) 30 ml PRN Q3HRS PRN PO HEARTBURN / GAS; Start 01/21/21 at 13:00; Status UNV Calcium Carbonate/ Glycine (Tums) 500 mg PRN Q3HRS PRN PO HEARTBURN / GAS; Start 01/21/21 at 13:00; Status UNV Famotidine (Pepcid Vial) 20 mg BID IVP ; Start 01/21/21 at 21:00; Status UNV Heparin Sodium (Porcine) (Heparin Sodium) 5,000 unit Q8HRS SQ ; Start 01/21/21 at 14:00; Status UNV Sodium Chloride (Normal Saline Flush) 3 ml QSHIFT PRN IV AFTER MEDS AND BLOOD DRAWS; Start 01/21/21 at 13:00; Status UNV Morphine Sulfate (Morphine Sulfate) 2 mg PRN Q1HR PRN IV PAIN; Start 01/21/21 at 13:00; Status UNV Allergies Allergies: Coded Allergies: Unable to Assess (Unverified , 01/21/21) ROS Review of System Unable to obtain at this time due to clinical condition Physical Exam Physical Exam General: Intubated in the ICU, currently does not appear in acute distress HEENT: Pupils are sluggish but equal and responsive to light Lungs: Bilateral rhonchi, Normal air movement, breathing on mechanical ventil ator Heart: Tachycardic, no murmurs Cardiovascular: S1, S2 Abdomen: Normal bowel sounds, Soft, No tenderness Extremities: No clubbing, No cyanosis Skin: No rashes, No significant lesion Neuro: Normal tone, Sensation intact Psych/Mental Status: Unresponsive Vitals Vitals Vital Signs Date Time Temp Pulse Resp B/P (MAP) Pulse Ox O2 Delivery O2 Flow Rate FiO2 01/21/21 12:40 Mechanical Ventilator 01/21/21 12:00 94.0 122 24 97/58 (71) 100 94.0 01/21/21 11:10 15.0 Labs Labs Laboratory Tests Test 01/21/21 09:25 01/21/21 11:37 01/21/21 11:50 White Blood Count 15.5 x10^3/uL (4.0-11.0) Red Blood Count 4.66 x10^6/uL (4.30-5.70) Hemoglobin 15.1 g/dL (13.0-17.5) Hematocrit 47.8 % (39.0-53.0) Mean Corpuscular Volume 103 fL (79-100) Mean Corpuscular Hemoglobin 32 pg (25-35) Mean Corpuscular Hemoglobin Concent 32 g/dL (31-37) Red Cell Distribution Width 14.6 % (11.5-14.5) Platelet Count 304 x10^3/uL (140-400) Neutrophils (%) (Auto) 31 % (31-73) Lymphocytes (%) (Auto) 62 % (24-48) Monocytes (%) (Auto) 5 % (0-9) Eosinophils (%) (Auto) 1 % (0-3) Basophils (%) (Auto) 1 % (0-3) Neutrophils # (Auto) 4.8 x10^3/uL (1.8-7.7) Lymphocytes # (Auto) 9.6 x10^3/uL (1.0-4.8) Monocytes # (Auto) 0.7 x10^3/uL (0.0-1.1) Eosinophils # (Auto) 0.2 x10^3/uL (0.0-0.7) Basophils # (Auto) 0.2 x10^3/uL (0.0-0.2) Segmented Neutrophils % 18 % (35-66) Lymphocytes % 81 % (24-48) Monocytes % 1 % (0-10) Smudge Cells Present Platelet Estimate Adequate (ADEQUATE) Sodium Level 133 mmol/L (136-145) Potassium Level 6.2 mmol/L (3.5-5.1) Chloride Level 96 mmol/L (98-107) Carbon Dioxide Level 13 mmol/L (21-32) Anion Gap 24 (6-14) Blood Urea Nitrogen 13 mg/dL (8-26) Creatinine 1.8 mg/dL (0.7-1.3) Estimated GFR (Cockcroft-Gault) 40.5 BUN/Creatinine Ratio 7 (6-20) Glucose Level 428 mg/dL (70-99) Calcium Level 7.9 mg/dL (8.5-10.1) Magnesium Level 3.2 mg/dL (1.8-2.4) Total Bilirubin 0.4 mg/dL (0.2-1.0) Aspartate Amino Transf (AST/SGOT) 194 U/L (15-37) Alanine Aminotransferase (ALT/SGPT) 203 U/L (16-63) Alkaline Phosphatase 128 U/L (46-116) Troponin I Quantitative 5.019 ng/mL (0.000-0.055) FD-[id number]-[id number]-Type Natriuretic Peptide 50 pg/mL (0-124) Total Protein 6.6 g/dL (6.4-8.2) Albumin 3.4 g/dL (3.4-5.0) Albumin/Globulin Ratio 1.1 (1.0-1.7) Lipase 135 U/L (73-393) O2 Saturation 98 % (92-99) Arterial Blood pH 7.05 (7.35-7.45) Arterial Blood pCO2 at Patient Temp 36 mmHg (35-46) Arterial Blood pO2 at Patient Temp 148 mmHg (75-108) Arterial Blood HCO3 10 mmol/L (21-28) Arterial Blood Base Excess -20 mmol/L (-3-3) FiO2 100 Laboratory Tests Test 01/21/21 09:25 01/21/21 11:37 01/21/21 11:50 White Blood Count 15.5 x10^3/uL (4.0-11.0) Red Blood Count 4.66 x10^6/uL (4.30-5.70) Hemoglobin 15.1 g/dL (13.0-17.5) Hematocrit 47.8 % (39.0-53.0) Mean Corpuscular Volume 103 fL (79-100) Mean Corpuscular Hemoglobin 32 pg (25-35) Mean Corpuscular Hemoglobin Concent 32 g/dL (31-37) Red Cell Distribution Width 14.6 % (11.5-14.5) Platelet Count 304 x10^3/uL (140-400) Neutrophils (%) (Auto) 31 % (31-73) Lymphocytes (%) (Auto) 62 % (24-48) Monocytes (%) (Auto) 5 % (0-9) Eosinophils (%) (Auto) 1 % (0-3) Basophils (%) (Auto) 1 % (0-3) Neutrophils # (Auto) 4.8 x10^3/uL (1.8-7.7) Lymphocytes # (Auto) 9.6 x10^3/uL (1.0-4.8) Monocytes # (Auto) 0.7 x10^3/uL (0.0-1.1) Eosinophils # (Auto) 0.2 x10^3/uL (0.0-0.7) Basophils # (Auto) 0.2 x10^3/uL (0.0-0.2) Segmented Neutrophils % 18 % (35-66) Lymphocytes % 81 % (24-48) Monocytes % 1 % (0-10) Smudge Cells Present Platelet Estimate Adequate (ADEQUATE) Sodium Level 133 mmol/L (136-145) Potassium Level 6.2 mmol/L (3.5-5.1) Chloride Level 96 mmol/L (98-107) Carbon Dioxide Level 13 mmol/L (21-32) Anion Gap 24 (6-14) Blood Urea Nitrogen 13 mg/dL (8-26) Creatinine 1.8 mg/dL (0.7-1.3) Estimated GFR (Cockcroft-Gault) 40.5 BUN/Creatinine Ratio 7 (6-20) Glucose Level 428 mg/dL (70-99) Calcium Level 7.9 mg/dL (8.5-10.1) Magnesium Level 3.2 mg/dL (1.8-2.4) Total Bilirubin 0.4 mg/dL (0.2-1.0) Aspartate Amino Transf (AST/SGOT) 194 U/L (15-37) Alanine Aminotransferase (ALT/SGPT) 203 U/L (16-63) Alkaline Phosphatase 128 U/L (46-116) Troponin I Quantitative 5.019 ng/mL (0.000-0.055) [id number]-Type Natriuretic Peptide 50 pg/mL (0-124) Total Protein 6.6 g/dL (6.4-8.2) Albumin 3.4 g/dL (3.4-5.0) Albumin/Globulin Ratio 1.1 (1.0-1.7) Lipase 135 U/L (73-393) O2 Saturation 98 % (92-99) Arterial Blood pH 7.05 (7.35-7.45) Arterial Blood pCO2 at Patient Temp 36 mmHg (35-46) Arterial Blood pO2 at Patient Temp 148 mmHg (75-108) Arterial Blood HCO3 10 mmol/L (21-28) Arterial Blood Base Excess -20 mmol/L (-3-3) FiO2 100 Images Images PATIENT: NICHO MCCRACKENACCOUNT: [id number] : 04/12/1968 LOCATION: ER AGE: 52 SEX: M EXAM STATUS: PRE ER ORD. PHYSICIAN: MORALES QUIROS DO REASON: CHEST PAIN/ FULL CODE PROCEDURE: PORTABLE CHEST 1V Single AP view of the chest. Comparison: None. Indication: Intubation and chest pain Findings: Endotracheal tube is in good position 2.5 cm above the gibran. Nasogastric tube is seen with tip in the body the stomach. The heart is at the upper limits of normal. There is no pneumothorax or effusion. Bilateral interstitial opacities are identified. Impression: 1. Bilateral interstitial opacities likely CHF, however, atypical viral infection is also possible. VTE Prophylaxis Ordered VTE Prophylaxis Devices: No VTE Pharmacological Prophylaxi: Yes Assessment/Plan Assessment/Plan STEMI Metabolic acidosis DKA? Hyperkalemia Transaminitis HTN History of epilepsy Generalized anxiety disorder Plan: Consultation to cardiology S/P PCI with drug-eluting stent placement to the left circumflex artery; subsequent placement of intra-aortic balloon pump for hemodynamic support. Borderline normal left ventricular systolic function with ejection fraction estimated at 50% Consultation to pulmonology for ventilator management Continue pressure control ventilation; vasopressors as needed. Therapeutic hypothermia protocol for at least next 24 hours, given presenting rhythm of V. tach. Will obtain urine ketones due to concern for DKA with significant hyperglycemia, metabolic acidosis, with elevated anion gap; if urine ketones positive will recommend initiation DKA protocol to reverse acidosis and hyperkalemia. Suspect transaminitis secondary to shock liver. Will continue to monitor. reports history of epilepsy but states he has not had seizure in the past 4-5 years. As needed Ativan for seizure-like activity FEN - NPO PPX - Heparin FULL CODE Dispo - inpatient for above Patient's (Eliana Mccracken) is surrogate decision-maker Critical care time 30 minutes spent reviewing charts, reviewing labs, reviewing imaging, discussion with RN. Justifications for Admission Other Justification ANNA KIRK MD Jan 21, 2021 13:41
[2021-01-21] MEDS ORDERED: MIDAZOLAM HCL/PF 5 MG/5 ML VIAL. IV ONE (13:45)
[2021-01-21] MEDS ORDERED: HEPARIN for IV BOLUS 10,000 UNIT/10 ML VIAL. IV PRN (13:45)
[2021-01-21] MEDS: SODIUM BICARBONATE VIAL 150 MEQ in IV DEXTROSE 5% 1,000 ML IV SCH (14:00)
[2021-01-21] MEDS ORDERED: HEPARIN for SUB-Q USE 5,000 UNIT/ML VIAL. SQ SCH (14:00)
[2021-01-21] MEDS ORDERED: ACETAMINOPHEN 650 MG/20.3 ML SOLUTION. NG SCH (14:00)
[2021-01-21] MEDS ORDERED: busPIRone 10 MG TABLET. NG SCH (14:00)
[2021-01-21] MEDS ORDERED: PANTOPRAZOLE IV PUSH 40 MG VIAL. IVP SCH (14:00)
[2021-01-21] MEDS: HEPARIN 25,000UTS/250ML PREMIX 250 ML IV PRN (15:24)
--- NOTE | 2021-01-21 16:00 | NUR ---
APPROXIMATELY [address] FELIX ASKED TO START HYPOTHERMIA PROTOCOL ON THIS PT. PT WAS CURRENTLY UNRESPONSIVE AND NOT ON SEDATION, TO UNSTABLE TO OBTAIN HEAD CT. DR YOUNGER AGREED HYPOTHERMIA WOULD BE GOOD IDEA, AND THERAPY INITIATED AT 1230PM. APPROX 1.5 HOURS INTO THERAPY, PATIENT BECAME ALERT AND RESPONSIVE, FOLLOWING COMMANDS, NODDING HEAD APPROPRIATELY, MOVING ALL EXTREMITIES. HYPOTHERMIA DISCONTINUED, DR. FELIX NOTIFIED OF NEW FINDING AND DISCONTINUATION OF THERAPY. AT BEDSIDE AND AWARE OF CHANGE IN CONDITION. PATIENT PLACED ON SEDATION AT THIS TIME.
--- NOTE | 2021-01-21 16:27 | PDOC2 ---
NEUROLOGY CONSULT Date of Service DOS: DATE: 01/21/21 TIME: 16:20 Reason for Consult Reason for Consult: Post cardiac arrest Referring Physician Referring Physician: Dr. Brooklynn Correa Source Source: Chart review History of Present Illness History of Present Illness The patient is a 50-year-old male who had 5 episodes of CODE BLUE prior to arrival in the hospital as well as in the hospital. He had chest pain and had V. tach, V. fib requiring defibrillation. He also had pulseless electrical activity. He was taken to the cardiac catheterization lab work he had successful PCI and drug-eluting stent placement in the left circumflex artery. There was question of papillary muscle dysfunction. He was placed on a balloon pump. He was unresponsive and placed on hypothermia protocol, but about 2 hours later he woke up completely, following commands, moving all extremities. He is now back on sedation. There is no previous stroke or head injury. There is no listing for any anticonvulsants, but he does have a history of epilepsy. told the nurse that it has been several years since he had a seizure. Past Medical History Cardiovascular: CAD CENTRAL NERVOUS SYSTEM: Seizure Past Surgical History Past Surgical History: No pertinent history Family History Family History: No pertinent hx Social History Social History Smoker, no alcohol, laborer mine, Current Medications Current Medications Current Medications Heparin Sodium (Porcine) (Heparin Sodium) 10,000 unit STK-MED ONCE .ROUTE ; Start 01/21/21 at 09:18; Stop 01/21/21 at 09:18; Status DC Midazolam HCl (Versed) 5 mg 1X ONCE NS Last administered on 01/21/21at 08:00; Start 01/21/21 at 09:30; Stop 01/21/21 at 09:52; Status DC Epinephrine HCl (Adrenalin) 1 mg STK-MED ONCE .ROUTE ; Start 01/21/21 at 09:43; Stop 01/21/21 at 09:44; Status DC Epinephrine HCl (EPINEPHrine SYRINGE) 1 mg STK-MED ONCE .ROUTE ; Start 01/21/21 at 09:44; Stop 01/21/21 at 09:44; Status DC Dopamine HCl/ Dextrose 250 ml @ As Directed STK-MED ONCE IV ; Start 01/21/21 at 09:46; Stop 01/21/21 at 09:47; Status DC Bivalirudin (Angiomax) 250 mg STK-MED ONCE IV ; Start 01/21/21 at 09:53; Stop 01/21/21 at 09:53; Status DC Nitroglycerin (Nitroglycerin) 200 mcg STK-MED ONCE .ROUTE ; Start 01/21/21 at 10:00; Stop 01/21/21 at 10:00; Status DC Heparin Sodium (Porcine) (Heparin Sodium) 10,000 unit STK-MED ONCE .ROUTE ; Start 01/21/21 at 10:05; Stop 01/21/21 at 10:05; Status DC Nitroglycerin (Nitroglycerin) 200 mcg 1X ONCE IART Last administered on 01/21/21at 09:59; Start 01/21/21 at 10:30; Stop 01/21/21 at 10:32; Status DC Heparin Sodium/ Sodium Chloride (HEPARIN for ARTERIAL LINE FLUSH) 1,000 unit 1X ONCE IART Last administered on 01/21/21at 10:30; Start 01/21/21 at 10:30; Stop 01/21/21 at 10:32; Status DC Heparin Sodium/ Sodium Chloride (HEPARIN for ARTERIAL LINE FLUSH) 1,000 unit 1X ONCE IART Last administered on 01/21/21at 10:30; Start 01/21/21 at 10:30; Stop 01/21/21 at 10:32; Status DC Iodixanol (Visipaque 320) 100 ml 1X ONCE IART Last administered on 01/21/21at 10:30; Start 01/21/21 at 10:30; Stop 01/21/21 at 10:32; Status DC Bivalirudin (Angiomax) 250 mg 1X ONCE IV Last administered on 01/21/21at 09:54; Start 01/21/21 at 10:30; Stop 01/21/21 at 10:32; Status DC Lidocaine HCl (Lidocaine 1% 20ml Vial) 20 ml 1X ONCE INJ Last administered on 01/21/21at 09:49; Start 01/21/21 at 10:30; Stop 01/21/21 at 10:32; Status DC Dopamine HCl/ Dextrose 250 ml @ 14.438 mls/ hr 1X ONCE IV Last administered on 01/21/21at 09:48; Start 01/21/21 at 10:30; Stop 01/21/21 at 14:04; Status DC Epinephrine HCl (EPINEPHrine SYRINGE) 1.5 mg 1X ONCE IV Last administered on 01/21/21at 09:57; Start 01/21/21 at 10:15; Stop 01/21/21 at 10:29; Status DC Clopidogrel Bisulfate (Plavix) 600 mg 1X ONCE PO Last administered on 01/21/21at 10:30; Start 01/21/21 at 10:30; Stop 01/21/21 at 10:32; Status DC Aspirin (Yung Aspirin) 325 mg 1X ONCE PO Last administered on 01/21/21at 10:30; Start 01/21/21 at 10:30; Stop 01/21/21 at 15:44; Status DC Heparin Sodium (Porcine) (Heparin 5,000 Units/1,000ml NS) 5,000 unit 1X ONCE IV Last administered on 01/21/21at 10:05; Start 01/21/21 at 10:30; Stop 01/21/21 at 10:32; Status DC Sodium Chloride 1,000 ml @ 75 mls/hr [id number] IV ; Start 01/21/21 at 10:30 Aspirin (Ecotrin) 325 mg DAILYWBKFT PO ; Start 01/22/21 at 08:00; Stop 01/21/21 at 10:34; Status DC Clopidogrel Bisulfate (Plavix) 75 mg DAILYWBKFT PO ; Start 01/22/21 at 08:00; Stop 01/21/21 at 10:34; Status DC Atorvastatin Calcium (Lipitor) 40 mg QHS PO ; Start 01/21/21 at 21:00; Stop 01/21/21 at 10:34; Status DC Aspirin (Ecotrin) 325 mg DAILYWBKFT PO ; Start 01/22/21 at 08:00 Clopidogrel Bisulfate (Plavix) 75 mg DAILYWBKFT PO ; Start 01/22/21 at 08:00 Atorvastatin Calcium (Lipitor) 40 mg QHS PO ; Start 01/21/21 at 21:00 Etomidate (Amidate) 20 mg STK-MED ONCE IV ; Start 01/21/21 at 11:01; Stop 01/21/21 at 11:01; Status DC Vecuronium [place] (Norcuron Bolus) 10 mg STK-MED ONCE IV ; Start 01/21/21 at 11:01; Stop 01/21/21 at 11:01; Status DC Succinylcholine Chloride (Anectine) 200 mg STK-MED ONCE .ROUTE ; Start 01/21/21 at 11:03; Stop 01/21/21 at 11:03; Status DC Norepinephrine Bitartrate 8 mg/ Dextrose 258 ml @ 14.9 mls/hr CONT PRN IV PER PROTOCOL Last administered on 01/21/21at 12:00; Start 01/21/21 at 11:15; Stop 01/21/21 at 15:38; Status DC Lorazepam (Ativan Inj) 2 mg STK-MED ONCE .ROUTE ; Start 01/21/21 at 11:20; Stop 01/21/21 at 11:20; Status DC Fentanyl Citrate (Fentanyl 2ml Vial) 25 mcg PRN Q1HR PRN IV SEE COMMENTS; Start 01/21/21 at 11:30; Stop 01/21/21 at 15:44; Status DC Fentanyl Citrate (Fentanyl 2ml Vial) 50 mcg PRN Q1HR PRN IV SEE COMMENTS; Start 01/21/21 at 11:30; Stop 01/21/21 at 15:44; Status DC Morphine Sulfate (Morphine Sulfate) 2 mg PRN Q1HR PRN IV SEE COMMENTS.; Start 01/21/21 at 11:30 Morphine Sulfate (Morphine Sulfate) 4 mg PRN Q1HR PRN IV SEE COMMENTS.; Start 01/21/21 at 11:30 Lorazepam (Ativan Inj) 0.5 mg PRN Q6HRS PRN IVP ANXIETY / AGITATION; Start 01/21/21 at 13:00; Stop 01/21/21 at 15:44; Status DC Lorazepam (Ativan) 1 mg PRN Q6HRS PRN PO ANXIETY / AGITATION; Start 01/21/21 at 13:00 Ondansetron HCl (Zofran) 4 mg PRN Q6HRS PRN IVP NAUSEA/VOMITING; Start 01/21/21 at 13:00 Al Hydroxide/Mg Hydroxide (Mylanta Plus Xs) 30 ml PRN Q3HRS PRN PO HEARTBURN / GAS; Start 01/21/21 at 13:00 Calcium Carbonate/ Glycine (Tums) 500 mg PRN Q3HRS PRN PO HEARTBURN / GAS; Start 01/21/21 at 13:00 Famotidine (Pepcid Vial) 20 mg BID IVP ; Start 01/21/21 at 21:00 Heparin Sodium (Porcine) (Heparin Sodium) 5,000 unit Q8HRS SQ ; Start 01/21/21 at 14:00; Stop 01/21/21 at 13:40; Status DC Sodium Chloride (Normal Saline Flush) 3 ml QSHIFT PRN IV AFTER MEDS AND BLOOD DRAWS; Start 01/21/21 at 13:00 Morphine Sulfate (Morphine Sulfate) 2 mg PRN Q1HR PRN IV PAIN; Start 01/21/21 at 13:00 Lorazepam (Ativan Inj) 2 mg PRN Q10MIN PRN IVP SEE COMMENTS; Start 01/21/21 at 13:30 Midazolam HCl (Versed) 5 mg STK-MED ONCE .ROUTE ; Start 01/21/21 at 13:33; Stop 01/21/21 at 13:33; Status DC Midazolam HCl (Versed) 5 mg 1X ONCE IV Last administered on 01/21/21at 13:45; Start 01/21/21 at 13:45; Stop 01/21/21 at 13:51; Status DC Heparin Sodium/ Dextrose 250 ml @ 9.24 mls/hr CONT PRN IV PER PROTOCOL Last administered on 01/21/21at 15:24; Start 01/21/21 at 13:45 Heparin Sodium (Porcine) (Heparin Sodium) 1,950 unit PRN Q6HRS PRN IV FOR UFH LEVEL LESS THAN 0.2; Start 01/21/21 at 13:45 Fentanyl Citrate (Fentanyl 2ml Vial) 100 mcg 1X ONCE IV ; Start 01/21/21 at 13:30; Stop 01/21/21 at 15:44; Status DC Midazolam HCl (Versed) 2 mg 1X ONCE IV ; Start 01/21/21 at 13:30; Stop 01/21/21 at 14:03; Status DC Magnesium Sulfate/ Dextrose 100 ml @ 100 mls/hr 1X ONCE IV ; Start 01/21/21 at 13:30; Stop 01/21/21 at 15:44; Status DC Buspirone HCl (Buspar) 30 mg Q8H NG ; Start 01/21/21 at 14:00; Stop 01/21/21 at 15:44; Status DC Acetaminophen (Tylenol) 650 mg Q4HRS NG ; Start 01/21/21 at 14:00; Stop 01/21/21 at 15:44; Status DC Glycerin/ Hypromellose/ Polyethylene (Artificial Tears) 1 drop Q6HRS OU ; Start 01/21/21 at 18:00 Glycerin/ Hypromellose/ Polyethylene (Artificial Tears) 1 drop PRN Q15MIN PRN OU DRY EYE; Start 01/21/21 at 13:30 Pantoprazole Sodium (PROTONIX VIAL for IV PUSH) 40 mg DAILY IVP ; Start 01/21/21 at 14:00; Stop 01/21/21 at 15:44; Status DC Fentanyl Citrate 30 ml @ 0 mls/hr CONT PRN IV PER PROTOCOL. Last administered on 01/21/21at 15:00; Start 01/21/21 at 13:30 Midazolam HCl 100 ml @ 2 mls/hr CONT PRN IV PER PROTOCOL; Start 01/21/21 at 13:30 Vecuronium [place] (Norcuron Bolus) 8 mg PRN Q1HR PRN IV SHIVERING; Start at 13:30; Stop 01/21/21 at 15:44; Status DC Sodium Bicarbonate 150 meq/Dextrose 1,150 ml @ 75 mls/hr [id number] IV Last administered on 01/21/21at 14:00; Start 01/21/21 at 14:00 Dopamine HCl/ Dextrose 250 ml @ 14.438 mls/ hr CONT PRN IV SEE I/O RECORD Last administered on 01/21/21at 14:00; Start 01/21/21 at 14:00 Allergies Allergies: Coded Allergies: Unable to Assess (Unverified , 01/21/21) ROS Review of System Negative for fever, chills, weight loss, shortness of breath, chest pain, indigestion, hematochezia, melena, and dysuria. Full 14-point review of systems is negative. Physical Exam Physical Examination General: Well-developed, well-nourished white male in no acute distress HEENT: Normocephalic andatraumatic. Temporal arteriespulsatile and nontender. Neck: Supple without bruit, no meningismus Musculoskeletal: Stability:see neurologic. Gait exam:see neurologic. Tone:see neurol ogic.Strength:see neurologic. Neurological: Mental Status:orientation, memory, attention span/concentration, language, fund of knowledge: Sedated and intubated, but when I check his pupils, he does wave the flashlight away purposefully with either hand. Cranial Nerves:Pupils equal and reactive to light, extraocular movements areintact. There is no facial asymmetry. All other cranial related problems are negative except as mentioned before.Reflexes:2+ and symmetric with flexor plantar responses. Motor: Moving all extremities with normal tone and bulk. Coordination and gait:Not testable. Sensory:Not testable. Vitals VITALS Vital Signs Date Time Temp Pulse Resp B/P (MAP) Pulse Ox O2 Delivery O2 Flow Rate FiO2 01/21/21 16:05 100 Ventilator 01/21/21 16:00 95.7 79 24 91/60 (70) 95.7 01/21/21 11:10 15.0 Labs Labs Laboratory Tests Test 01/21/21 09:25 01/21/21 11:37 01/21/21 11:50 01/21/21 13:30 White Blood Count 15.5 x10^3/uL (4.0-11.0) Red Blood Count 4.66 x10^6/uL (4.30-5.70) Hemoglobin 15.1 g/dL (13.0-17.5) Hematocrit 47.8 % (39.0-53.0) Mean Corpuscular Volume 103 fL (79-100) Mean Corpuscular Hemoglobin 32 pg (25-35) Mean Corpuscular Hemoglobin Concent 32 g/dL (31-37) Red Cell Distribution Width 14.6 % (11.5-14.5) Platelet Count 304 x10^3/uL (140-400) Neutrophils (%) (Auto) 31 % (31-73) Lymphocytes (%) (Auto) 62 % (24-48) Monocytes (%) (Auto) 5 % (0-9) Eosinophils (%) (Auto) 1 % (0-3) Basophils (%) (Auto) 1 % (0-3) Neutrophils # (Auto) 4.8 x10^3/uL (1.8-7.7) Lymphocytes # (Auto) 9.6 x10^3/uL (1.0-4.8) Monocytes # (Auto) 0.7 x10^3/uL (0.0-1.1) Eosinophils # (Auto) 0.2 x10^3/uL (0.0-0.7) Basophils # (Auto) 0.2 x10^3/uL (0.0-0.2) Segmented Neutrophils % 18 % (35-66) Lymphocytes % 81 % (24-48) Monocytes % 1 % (0-10) Smudge Cells Present Platelet Estimate Adequate (ADEQUATE) Sodium Level 133 mmol/L (136-145) Potassium Level 6.2 mmol/L (3.5-5.1) Chloride Level 96 mmol/L (98-107) Carbon Dioxide Level 13 mmol/L (21-32) Anion Gap 24 (6-14) Blood Urea Nitrogen 13 mg/dL (8-26) Creatinine 1.8 mg/dL (0.7-1.3) Estimated GFR (Cockcroft-Gault) 40.5 BUN/Creatinine Ratio 7 (6-20) Glucose Level 428 mg/dL (70-99) Calcium Level 7.9 mg/dL (8.5-10.1) Magnesium Level 3.2 mg/dL (1.8-2.4) Total Bilirubin 0.4 mg/dL (0.2-1.0) Aspartate Amino Transf (AST/SGOT) 194 U/L (15-37) Alanine Aminotransferase (ALT/SGPT) 203 U/L (16-63) Alkaline Phosphatase 128 U/L (46-116) Troponin I Quantitative 5.019 ng/mL (0.000-0.055) KN-[id number]-M-Type Natriuretic Peptide 50 pg/mL (0-124) Total Protein 6.6 g/dL (6.4-8.2) Albumin 3.4 g/dL (3.4-5.0) Albumin/Globulin Ratio 1.1 (1.0-1.7) Lipase 135 U/L (73-393) O2 Saturation 98 % (92-99) Arterial Blood pH 7.05 (7.35-7.45) Arterial Blood pCO2 at Patient Temp 36 mmHg (35-46) Arterial Blood pO2 at Patient Temp 148 mmHg (75-108) Arterial Blood HCO3 10 mmol/L (21-28) Arterial Blood Base Excess -20 mmol/L (-3-3) FiO2 100 SARS-CoV-2 Antigen (Rapid) Negative (NEGATIVE) Laboratory Tests Test 01/21/21 09:25 01/21/21 11:37 01/21/21 11:50 01/21/21 13:30 White Blood Count 15.5 x10^3/uL (4.0-11.0) Red Blood Count 4.66 x10^6/uL (4.30-5.70) Hemoglobin 15.1 g/dL (13.0-17.5) Hematocrit 47.8 % (39.0-53.0) Mean Corpuscular Volume 103 fL (79-100) Mean Corpuscular Hemoglobin 32 pg (25-35) Mean Corpuscular Hemoglobin Concent 32 g/dL (31-37) Red Cell Distribution Width 14.6 % (11.5-14.5) Platelet Count 304 x10^3/uL (140-400) Neutrophils (%) (Auto) 31 % (31-73) Lymphocytes (%) (Auto) 62 % (24-48) Monocytes (%) (Auto) 5 % (0-9) Eosinophils (%) (Auto) 1 % (0-3) Basophils (%) (Auto) 1 % (0-3) Neutrophils # (Auto) 4.8 x10^3/uL (1.8-7.7) Lymphocytes # (Auto) 9.6 x10^3/uL (1.0-4.8) Monocytes # (Auto) 0.7 x10^3/uL (0.0-1.1) Eosinophils # (Auto) 0.2 x10^3/uL (0.0-0.7) Basophils # (Auto) 0.2 x10^3/uL (0.0-0.2) Segmented Neutrophils % 18 % (35-66) Lymphocytes % 81 % (24-48) Monocytes % 1 % (0-10) Smudge Cells Present Platelet Estimate Adequate (ADEQUATE) Sodium Level 133 mmol/L (136-145) Potassium Level 6.2 mmol/L (3.5-5.1) Chloride Level 96 mmol/L (98-107) Carbon Dioxide Level 13 mmol/L (21-32) Anion Gap 24 (6-14) Blood Urea Nitrogen 13 mg/dL (8-26) Creatinine 1.8 mg/dL (0.7-1.3) Estimated GFR (Cockcroft-Gault) 40.5 BUN/Creatinine Ratio 7 (6-20) Glucose Level 428 mg/dL (70-99) Calcium Level 7.9 mg/dL (8.5-10.1) Magnesium Level 3.2 mg/dL (1.8-2.4) Total Bilirubin 0.4 mg/dL (0.2-1.0) Aspartate Amino Transf (AST/SGOT) 194 U/L (15-37) Alanine Aminotransferase (ALT/SGPT) 203 U/L (16-63) Alkaline Phosphatase 128 U/L (46-116) Troponin I Quantitative 5.019 ng/mL (0.000-0.055) IC-Fzb-Y-Type Natriuretic Peptide 50 pg/mL (0-124) Total Protein 6.6 g/dL (6.4-8.2) Albumin 3.4 g/dL (3.4-5.0) Albumin/Globulin Ratio 1.1 (1.0-1.7) Lipase 135 U/L (73-393) O2 Saturation 98 % (92-99) Arterial Blood pH 7.05 (7.35-7.45) Arterial Blood pCO2 at Patient Temp 36 mmHg (35-46) Arterial Blood pO2 at Patient Temp 148 mmHg (75-108) Arterial Blood HCO3 10 mmol/L (21-28) Arterial Blood Base Excess -20 mmol/L (-3-3) FiO2 100 SARS-CoV-2 Antigen (Rapid) Negative (NEGATIVE) Assessment/Plan Assessment/Plan Impression: Cardiac arrest, anoxic encephalopathy, but fully woke up earlier, now sedated. History of epilepsy, no recent seizures Recommendations: I will check a urine drug screen for now CT head when off the balloon pump and able to be transported Hold on electroencephalogram Thank you for letting me help with the patient's care. SUSANA JOHANSEN MD Jan 21, 2021 16:27
[2021-01-21] MEDS: POLYVINYL ALCOHOL 1.4% OPHTH SOLUTION 15ML BOTTLE. OU SCH (18:00)
[2021-01-21 18:02] LABS: WHITE BLOOD COUNT 15.5 x10^3/uL (4.0-11.0)
[2021-01-21 18:03] LABS: BASE EXCESS ABG -13 mmol/L (-3-3); FIO2 ABG 100; HCO3 ABG 13 mmol/L (21-28); PCO2 ABG 34 mmHg (35-46); PO2 ABG 386 mmHg (75-108); SAT O2 ABG 99 % (92-99)
--- NOTE | 2021-01-21 18:25 | NUR ---
1744 THIS RN COULD NOT DOPPLER PULSE IN RIGHT DORSALIS PEDIS OR POST TIB ARTERY, FOOT COOL BUT NOT DISCOLORED. WARM BLANKETS WRAPPED AROUND FOOT AND DR. YOUNGER NOTIFIED OF FINDINGS. NO NEW ORDERS RECEIVED.
[2021-01-21 18:42] LABS: BARBITURATES NEG (NEG); BENZODIAZEPINES POS (NEG); CANNABINOIDS NEG (NEG); COCAINE NEG (NEG); METHADONE NEG (NEG); OPIATES NEG (NEG); PHENCYCLIDINE NEG (NEG)
[2021-01-21 18:43] LABS: AMPHETAMINE/METHAMPHETAMINE NEG (NEG)
--- NOTE | 2021-01-21 20:31 | NUR ---
Patient's OG drainage now has some blood in it--it is still mostly brown with a red tint. Patient still on heparin gtt, but still has no pulse in R foot (Dr. Camargo was made aware of this earlier). Dr. Campbell notified of blood in OG tube, orders received to draw CBC at 2200 and call him back if hgb has dropped >2. If not, monitor the drainage overnight and it will be reassessed in the AM.
[2021-01-21] MEDS ORDERED: ATORVASTATIN CALCIUM 20 MG TABLET PO SCH (21:00)
[2021-01-21] MEDS: FAMOTIDINE 20 MG/2 ML VIAL IVP SCH (21:09)
[2021-01-21] MEDS: ATORVASTATIN CALCIUM 20 MG TABLET PO SCH (21:09)
[2021-01-21 22:13] LABS: BASO % 0 % (0-3); EOS % 0 % (0-3); HEMATOCRIT 43.6 % (39.0-53.0); HEMOGLOBIN 15.3 g/dL (13.0-17.5); LYMPH # 1.4 x10^3/uL (1.0-4.8); LYMPH % 5 % (24-48); MEAN CORPUSCULAR HEMOGLOBIN 32 pg (25-35); MEAN CORPUSCULAR HGB CONC 35 g/dL (31-37); MEAN CORPUSCULAR VOLUME 91 fL (79-100); MONO # 2.3 x10^3/uL (0.0-1.1); MONO % 8 % (0-9); NEUT # 26.8 x10^3/uL (1.8-7.7); NEUT % 88 % (31-73); PLATELET COUNT 290 x10^3/uL (140-400); RED BLOOD COUNT 4.82 x10^6/uL (4.30-5.70); RED CELL DISTRIBUTION WIDTH 13.6 % (11.5-14.5); WHITE BLOOD COUNT 30.5 x10^3/uL (4.0-11.0)
[2021-01-21 22:28] LABS: MAGNESIUM 2.6 mg/dL (1.8-2.4)
[2021-01-22] VITALS (24 sets, daily range): BP systolic 89–158; BP diastolic 52–92
[2021-01-22 00:10] LABS: % BANDS 5 % (0-9); % LYMPHS 3 % (24-48); % MONOS 6 % (0-10); % SEGS 86 % (35-66); PLT ESTIMATE ADEQUATE (ADEQUATE); TOXIC GRANULATION SLIGHT
[2021-01-22] MEDS: POLYVINYL ALCOHOL 1.4% OPHTH SOLUTION 15ML BOTTLE. OU SCH ×4 (05:41→13:02)
[2021-01-22] MEDS: SODIUM BICARBONATE VIAL 150 MEQ in IV DEXTROSE 5% 1,000 ML IV SCH (05:41)
[2021-01-22 06:03] LABS: CALCIUM 7.3 mg/dL (8.5-10.1); CREATININE 1.4 mg/dL (0.7-1.3); GFR 54.1
[2021-01-22 06:08] LABS: CHOLESTEROL/HDL RATIO 6.4
[2021-01-22 06:12] LABS: POTASSIUM 4.2 mmol/L (3.5-5.1)
[2021-01-22 06:44] LABS: HEMATOCRIT 42.9 % (39.0-53.0); HEMOGLOBIN 14.7 g/dL (13.0-17.5); RED BLOOD COUNT 4.7 x10^6/uL (4.30-5.70); RED CELL DISTRIBUTION WIDTH 13.8 % (11.5-14.5); WHITE BLOOD COUNT 23.9 x10^3/uL (4.0-11.0)
[2021-01-22] MEDS ORDERED: CLOPIDOGREL BISULFATE 75 MG TABLET PO SCH (08:00)
[2021-01-22] MEDS ORDERED: ASPIRIN ENTERIC COATED 325 MG TABLET.DR. PO SCH ×2 (08:00)
--- NOTE | 2021-01-22 08:25 | PDOC ---
PULMONARY PROGRESS NOTES DATE: 01/22/21 TIME: 08:25 Subjective Patient following commands, did well on spontaneous breathing trial Vitals Vital Signs Date Time Temp Pulse Resp B/P (MAP) Pulse Ox O2 Delivery O2 Flow Rate FiO2 01/22/21 07:00 99.7 110 24 93/70 99 Ventilator 99.7 01/21/21 11:10 15.0 General: Alert Lungs: Clear Cardiovascular: S1, S2 Abdomen: Soft Neuro Exam: Alert Extremities: No Edema Skin: Warm Labs Laboratory Tests Test 01/21/21 09:25 01/21/21 11:37 01/21/21 11:50 01/21/21 13:30 White Blood Count 15.5 x10^3/uL (4.0-11.0) Red Blood Count 4.66 x10^6/uL (4.30-5.70) Hemoglobin 15.1 g/dL (13.0-17.5) Hematocrit 47.8 % (39.0-53.0) Mean Corpuscular Volume 103 fL (79-100) Mean Corpuscular Hemoglobin 32 pg (25-35) Mean Corpuscular Hemoglobin Concent 32 g/dL (31-37) Red Cell Distribution Width 14.6 % (11.5-14.5) Platelet Count 304 x10^3/uL (140-400) Neutrophils (%) (Auto) 31 % (31-73) Lymphocytes (%) (Auto) 62 % (24-48) Monocytes (%) (Auto) 5 % (0-9) Eosinophils (%) (Auto) 1 % (0-3) Basophils (%) (Auto) 1 % (0-3) Neutrophils # (Auto) 4.8 x10^3/uL (1.8-7.7) Lymphocytes # (Auto) 9.6 x10^3/uL (1.0-4.8) Monocytes # (Auto) 0.7 x10^3/uL (0.0-1.1) Eosinophils # (Auto) 0.2 x10^3/uL (0.0-0.7) Basophils # (Auto) 0.2 x10^3/uL (0.0-0.2) Segmented Neutrophils % 18 % (35-66) Lymphocytes % 81 % (24-48) Monocytes % 1 % (0-10) Smudge Cells Present Platelet Estimate Adequate (ADEQUATE) Sodium Level 133 mmol/L (136-145) Potassium Level 6.2 mmol/L (3.5-5.1) Chloride Level 96 mmol/L (98-107) Carbon Dioxide Level 13 mmol/L (21-32) Anion Gap 24 (6-14) Blood Urea Nitrogen 13 mg/dL (8-26) Creatinine 1.8 mg/dL (0.7-1.3) Estimated GFR (Cockcroft-Gault) 40.5 BUN/Creatinine Ratio 7 (6-20) Glucose Level 428 mg/dL (70-99) Calcium Level 7.9 mg/dL (8.5-10.1) Magnesium Level 3.2 mg/dL (1.8-2.4) Total Bilirubin 0.4 mg/dL (0.2-1.0) Aspartate Amino Transf (AST/SGOT) 194 U/L (15-37) Alanine Aminotransferase (ALT/SGPT) 203 U/L (16-63) Alkaline Phosphatase 128 U/L (46-116) Troponin I Quantitative 5.019 ng/mL (0.000-0.055) YD-Bak-C-Type Natriuretic Peptide 50 pg/mL (0-124) Total Protein 6.6 g/dL (6.4-8.2) Albumin 3.4 g/dL (3.4-5.0) Albumin/Globulin Ratio 1.1 (1.0-1.7) Lipase 135 U/L (73-393) O2 Saturation 98 % (92-99) Arterial Blood pH 7.05 (7.35-7.45) Arterial Blood pCO2 at Patient Temp 36 mmHg (35-46) Arterial Blood pO2 at Patient Temp 148 mmHg (75-108) Arterial Blood HCO3 10 mmol/L (21-28) Arterial Blood Base Excess -20 mmol/L (-3-3) FiO2 100 SARS-CoV-2 Antigen (Rapid) Negative (NEGATIVE) Test 01/21/21 17:15 01/21/21 17:35 01/21/21 21:30 01/22/21 05:15 O2 Saturation 99 % (92-99) Arterial Blood pH 7.21 (7.35-7.45) Arterial Blood pCO2 at Patient Temp 34 mmHg (35-46) Arterial Blood pO2 at Patient Temp 386 mmHg (75-108) Arterial Blood HCO3 13 mmol/L (21-28) Arterial Blood Base Excess -13 mmol/L (-3-3) FiO2 100 Urine Ketones (Stick) Negative mg/dL (NEG) Urine Opiates Screen Neg (NEG) Urine Methadone Screen Neg (NEG) Urine Barbiturates Neg (NEG) Urine Phencyclidine Screen Neg (NEG) Urine Amphetamine/Methamphetamine Neg (NEG) Urine Benzodiazepines Screen Pos (NEG) Urine Cocaine Screen Neg (NEG) Urine Cannabinoids Screen Neg (NEG) Urine Ethyl Alcohol Neg (NEG) White Blood Count 30.5 x10^3/uL (4.0-11.0) 23.9 x10^3/uL (4.0-11.0) Red Blood Count 4.82 x10^6/uL (4.30-5.70) 4.70 x10^6/uL (4.30-5.70) Hemoglobin 15.3 g/dL (13.0-17.5) 14.7 g/dL (13.0-17.5) Hematocrit 43.6 % (39.0-53.0) 42.9 % (39.0-53.0) Mean Corpuscular Volume 91 fL (79-100) 91 fL (79-100) Mean Corpuscular Hemoglobin 32 pg (25-35) 31 pg (25-35) Mean Corpuscular Hemoglobin Concent 35 g/dL (31-37) 34 g/dL (31-37) Red Cell Distribution Width 13.6 % (11.5-14.5) 13.8 % (11.5-14.5) Platelet Count 290 x10^3/uL (140-400) 250 x10^3/uL (140-400) Neutrophils (%) (Auto) 88 % (31-73) Lymphocytes (%) (Auto) 5 % (24-48) Monocytes (%) (Auto) 8 % (0-9) Eosinophils (%) (Auto) 0 % (0-3) Basophils (%) (Auto) 0 % (0-3) Neutrophils # (Auto) 26.8 x10^3/uL (1.8-7.7) Lymphocytes # (Auto) 1.4 x10^3/uL (1.0-4.8) Monocytes # (Auto) 2.3 x10^3/uL (0.0-1.1) Eosinophils # (Auto) 0.0 x10^3/uL (0.0-0.7) Basophils # (Auto) 0.0 x10^3/uL (0.0-0.2) Segmented Neutrophils % 86 % (35-66) Band Neutrophils % 5 % (0-9) Lymphocytes % 3 % (24-48) Monocytes % 6 % (0-10) Toxic Granulation Slight Platelet Estimate Adequate (ADEQUATE) Heparin Anti-Xa Act, Unfractionated 0.28 IU/mL (0.30-0.70) 0.45 IU/mL (0.30-0.70) Magnesium Level 2.6 mg/dL (1.8-2.4) Triglycerides Level 189 mg/dL (0-150) 206 mg/dL (0-150) Sodium Level 135 mmol/L (136-145) Potassium Level 4.2 mmol/L (3.5-5.1) Chloride Level 102 mmol/L (98-107) Carbon Dioxide Level 25 mmol/L (21-32) Anion Gap 8 (6-14) Blood Urea Nitrogen 19 mg/dL (8-26) Creatinine 1.4 mg/dL (0.7-1.3) Estimated GFR (Cockcroft-Gault) 54.1 Glucose Level 109 mg/dL (70-99) Calcium Level 7.3 mg/dL (8.5-10.1) Cholesterol Level 167 mg/dL (0-200) LDL Cholesterol, Calculated 100 mg/dL (0-100) VLDL Cholesterol, Calculated 41 mg/dL (0-40) Non-HDL Cholesterol Calculated 141 mg/dL (0-129) HDL Cholesterol 26 mg/dL (40-60) Cholesterol/HDL Ratio 6.4 Laboratory Tests Test 01/21/21 09:25 01/21/21 11:37 01/21/21 11:50 01/21/21 13:30 White Blood Count 15.5 x10^3/uL (4.0-11.0) Red Blood Count 4.66 x10^6/uL (4.30-5.70) Hemoglobin 15.1 g/dL (13.0-17.5) Hematocrit 47.8 % (39.0-53.0) Mean Corpuscular Volume 103 fL (79-100) Mean Corpuscular Hemoglobin 32 pg (25-35) Mean Corpuscular Hemoglobin Concent 32 g/dL (31-37) Red Cell Distribution Width 14.6 % (11.5-14.5) Platelet Count 304 x10^3/uL (140-400) Neutrophils (%) (Auto) 31 % (31-73) Lymphocytes (%) (Auto) 62 % (24-48) Monocytes (%) (Auto) 5 % (0-9) Eosinophils (%) (Auto) 1 % (0-3) Basophils (%) (Auto) 1 % (0-3) Neutrophils # (Auto) 4.8 x10^3/uL (1.8-7.7) Lymphocytes # (Auto) 9.6 x10^3/uL (1.0-4.8) Monocytes # (Auto) 0.7 x10^3/uL (0.0-1.1) Eosinophils # (Auto) 0.2 x10^3/uL (0.0-0.7) Basophils # (Auto) 0.2 x10^3/uL (0.0-0.2) Segmented Neutrophils % 18 % (35-66) Lymphocytes % 81 % (24-48) Monocytes % 1 % (0-10) Smudge Cells Present Platelet Estimate Adequate (ADEQUATE) Sodium Level 133 mmol/L (136-145) Potassium Level 6.2 mmol/L (3.5-5.1) Chloride Level 96 mmol/L (98-107) Carbon Dioxide Level 13 mmol/L (21-32) Anion Gap 24 (6-14) Blood Urea Nitrogen 13 mg/dL (8-26) Creatinine 1.8 mg/dL (0.7-1.3) Estimated GFR (Cockcroft-Gault) 40.5 BUN/Creatinine Ratio 7 (6-20) Glucose Level 428 mg/dL (70-99) Calcium Level 7.9 mg/dL (8.5-10.1) Magnesium Level 3.2 mg/dL (1.8-2.4) Total Bilirubin 0.4 mg/dL (0.2-1.0) Aspartate Amino Transf (AST/SGOT) 194 U/L (15-37) Alanine Aminotransferase (ALT/SGPT) 203 U/L (16-63) Alkaline Phosphatase 128 U/L (46-116) Troponin I Quantitative 5.019 ng/mL (0.000-0.055) DS-Uav-Y-Type Natriuretic Peptide 50 pg/mL (0-124) Total Protein 6.6 g/dL (6.4-8.2) Albumin 3.4 g/dL (3.4-5.0) Albumin/Globulin Ratio 1.1 (1.0-1.7) Lipase 135 U/L (73-393) O2 Saturation 98 % (92-99) Arterial Blood pH 7.05 (7.35-7.45) Arterial Blood pCO2 at Patient Temp 36 mmHg (35-46) Arterial Blood pO2 at Patient Temp 148 mmHg (75-108) Arterial Blood HCO3 10 mmol/L (21-28) Arterial Blood Base Excess -20 mmol/L (-3-3) FiO2 100 SARS-CoV-2 Antigen (Rapid) Negative (NEGATIVE) Test 01/21/21 17:15 01/21/21 17:35 01/21/21 21:30 01/22/21 05:15 O2 Saturation 99 % (92-99) Arterial Blood pH 7.21 (7.35-7.45) Arterial Blood pCO2 at Patient Temp 34 mmHg (35-46) Arterial Blood pO2 at Patient Temp 386 mmHg (75-108) Arterial Blood HCO3 13 mmol/L (21-28) Arterial Blood Base Excess -13 mmol/L (-3-3) FiO2 100 Urine Ketones (Stick) Negative mg/dL (NEG) Urine Opiates Screen Neg (NEG) Urine Methadone Screen Neg (NEG) Urine Barbiturates Neg (NEG) Urine Phencyclidine Screen Neg (NEG) Urine Amphetamine/Methamphetamine Neg (NEG) Urine Benzodiazepines Screen Pos (NEG) Urine Cocaine Screen Neg (NEG) Urine Cannabinoids Screen Neg (NEG) Urine Ethyl Alcohol Neg (NEG) White Blood Count 30.5 x10^3/uL (4.0-11.0) 23.9 x10^3/uL (4.0-11.0) Red Blood Count 4.82 x10^6/uL (4.30-5.70) 4.70 x10^6/uL (4.30-5.70) Hemoglobin 15.3 g/dL (13.0-17.5) 14.7 g/dL (13.0-17.5) Hematocrit 43.6 % (39.0-53.0) 42.9 % (39.0-53.0) Mean Corpuscular Volume 91 fL (79-100) 91 fL (79-100) Mean Corpuscular Hemoglobin 32 pg (25-35) 31 pg (25-35) Mean Corpuscular Hemoglobin Concent 35 g/dL (31-37) 34 g/dL (31-37) Red Cell Distribution Width 13.6 % (11.5-14.5) 13.8 % (11.5-14.5) Platelet Count 290 x10^3/uL (140-400) 250 x10^3/uL (140-400) Neutrophils (%) (Auto) 88 % (31-73) Lymphocytes (%) (Auto) 5 % (24-48) Monocytes (%) (Auto) 8 % (0-9) Eosinophils (%) (Auto) 0 % (0-3) Basophils (%) (Auto) 0 % (0-3) Neutrophils # (Auto) 26.8 x10^3/uL (1.8-7.7) Lymphocytes # (Auto) 1.4 x10^3/uL (1.0-4.8) Monocytes # (Auto) 2.3 x10^3/uL (0.0-1.1) Eosinophils # (Auto) 0.0 x10^3/uL (0.0-0.7) Basophils # (Auto) 0.0 x10^3/uL (0.0-0.2) Segmented Neutrophils % 86 % (35-66) Band Neutrophils % 5 % (0-9) Lymphocytes % 3 % (24-48) Monocytes % 6 % (0-10) Toxic Granulation Slight Platelet Estimate Adequate (ADEQUATE) Heparin Anti-Xa Act, Unfractionated 0.28 IU/mL (0.30-0.70) 0.45 IU/mL (0.30-0.70) Magnesium Level 2.6 mg/dL (1.8-2.4) Triglycerides Level 189 mg/dL (0-150) 206 mg/dL (0-150) Sodium Level 135 mmol/L (136-145) Potassium Level 4.2 mmol/L (3.5-5.1) Chloride Level 102 mmol/L (98-107) Carbon Dioxide Level 25 mmol/L (21-32) Anion Gap 8 (6-14) Blood Urea Nitrogen 19 mg/dL (8-26) Creatinine 1.4 mg/dL (0.7-1.3) Estimated GFR (Cockcroft-Gault) 54.1 Glucose Level 109 mg/dL (70-99) Calcium Level 7.3 mg/dL (8.5-10.1) Cholesterol Level 167 mg/dL (0-200) LDL Cholesterol, Calculated 100 mg/dL (0-100) VLDL Cholesterol, Calculated 41 mg/dL (0-40) Non-HDL Cholesterol Calculated 141 mg/dL (0-129) HDL Cholesterol 26 mg/dL (40-60) Cholesterol/HDL Ratio 6.4 Impression . IMPRESSION: 1. Acute hypoxemic respiratory failure secondary to [id number] cardiopulmonary arrest. 2. [id number] cardiopulmonary arrest secondary to acute myocardial infarction. 3. Posterior wall myocardial infarction. 4. Status post emergent cardiac catheterization with successful percutaneous coronary intervention and drug-eluting stent to the left circumflex artery. 5. Status post insertion of intraaortic balloon pump for hemodynamic support. 6. Leukocytosis, suspect reactive. 7. History of epilepsy. 8. Cardiogenic shock. Plan . Updated 01/22 Sometime yesterday afternoon patient started moving all extremities, hypothermic protocol was discontinued Patient currently is awake alert following commands Did well with pressure support trial We will proceed with extubation Intra-aortic balloon pump per cardiology ABG noted Leukocytosis probably related to stress We will proceed with extubation Discussed with RN and RT 01/21 PLAN: 1. We will continue current support with a pressure control ventilation, repeat arterial blood gas. 2. Pressors to maintain mean arterial pressure above 60. The patient currently on norepinephrine and dopamine. 3. Monitor for any further arrhythmias. 4. Anticoagulation per Cardiology. 5. Repeat arterial blood gas and make adjustments to minute ventilations as necessary. 6. We will look into hypothermic protocol. The above was discussed with the at the bedside, I informed her that the next 24-48 hours will be critical in deciding whether he has suffered any anoxic brain injury. At this time, it is too early to make any judgment or calls. GUILLE FELIX MD Jan 22, 2021 08:25
--- NOTE | 2021-01-22 08:45 | PDOC ---
PROGRESS NOTES Date of Service DATE: 01/22/21 TIME: 08:43 Assessment Problems Medical Problems: (1) STEMI (ST elevation myocardial infarction) Status: Acute Cardiac arrest, anoxic encephalopathy, but fully awake History of epilepsy, no recent seizures Plan Hold on CT head given improvement Hold on electroencephalogram Subjective Indicates no pain Objective Vital Signs Date Time Temp Pulse Resp B/P (MAP) Pulse Ox O2 Delivery O2 Flow Rate FiO2 01/22/21 07:00 99.7 110 24 93/70 99 Ventilator 99.7 01/21/21 11:10 15.0 Intake and Output 01/22/21 07:00 Intake Total 2343 ml Output Total 2160 ml Balance 183 ml Intake IV Total 2343 ml Output Urine Total 2160 ml PHYSICAL EXAM Alert. Intubated. Follows all commands PERRL. EOMI. CN: no focal findings. Muscle tone: normal. Muscle strength: 5/5 DTR: 2+ Plantar reflex: Flexor Gait: not examined in bed. Sensory exam: no abnormal findings. No cerebellar signs elicited. Review of Relevant I have reviewed the following items salvador (where applicable) has been applied. Labs Laboratory Tests Test 01/21/21 09:25 01/21/21 11:37 01/21/21 11:50 01/21/21 13:30 White Blood Count 15.5 x10^3/uL (4.0-11.0) Red Blood Count 4.66 x10^6/uL (4.30-5.70) Hemoglobin 15.1 g/dL (13.0-17.5) Hematocrit 47.8 % (39.0-53.0) Mean Corpuscular Volume 103 fL (79-100) Mean Corpuscular Hemoglobin 32 pg (25-35) Mean Corpuscular Hemoglobin Concent 32 g/dL (31-37) Red Cell Distribution Width 14.6 % (11.5-14.5) Platelet Count 304 x10^3/uL (140-400) Neutrophils (%) (Auto) 31 % (31-73) Lymphocytes (%) (Auto) 62 % (24-48) Monocytes (%) (Auto) 5 % (0-9) Eosinophils (%) (Auto) 1 % (0-3) Basophils (%) (Auto) 1 % (0-3) Neutrophils # (Auto) 4.8 x10^3/uL (1.8-7.7) Lymphocytes # (Auto) 9.6 x10^3/uL (1.0-4.8) Monocytes # (Auto) 0.7 x10^3/uL (0.0-1.1) Eosinophils # (Auto) 0.2 x10^3/uL (0.0-0.7) Basophils # (Auto) 0.2 x10^3/uL (0.0-0.2) Segmented Neutrophils % 18 % (35-66) Lymphocytes % 81 % (24-48) Monocytes % 1 % (0-10) Smudge Cells Present Platelet Estimate Adequate (ADEQUATE) Sodium Level 133 mmol/L (136-145) Potassium Level 6.2 mmol/L (3.5-5.1) Chloride Level 96 mmol/L (98-107) Carbon Dioxide Level 13 mmol/L (21-32) Anion Gap 24 (6-14) Blood Urea Nitrogen 13 mg/dL (8-26) Creatinine 1.8 mg/dL (0.7-1.3) Estimated GFR (Cockcroft-Gault) 40.5 BUN/Creatinine Ratio 7 (6-20) Glucose Level 428 mg/dL (70-99) Calcium Level 7.9 mg/dL (8.5-10.1) Magnesium Level 3.2 mg/dL (1.8-2.4) Total Bilirubin 0.4 mg/dL (0.2-1.0) Aspartate Amino Transf (AST/SGOT) 194 U/L (15-37) Alanine Aminotransferase (ALT/SGPT) 203 U/L (16-63) Alkaline Phosphatase 128 U/L (46-116) Troponin I Quantitative 5.019 ng/mL (0.000-0.055) WV-Sad-P-Type Natriuretic Peptide 50 pg/mL (0-124) Total Protein 6.6 g/dL (6.4-8.2) Albumin 3.4 g/dL (3.4-5.0) Albumin/Globulin Ratio 1.1 (1.0-1.7) Lipase 135 U/L (73-393) O2 Saturation 98 % (92-99) Arterial Blood pH 7.05 (7.35-7.45) Arterial Blood pCO2 at Patient Temp 36 mmHg (35-46) Arterial Blood pO2 at Patient Temp 148 mmHg (75-108) Arterial Blood HCO3 10 mmol/L (21-28) Arterial Blood Base Excess -20 mmol/L (-3-3) FiO2 100 SARS-CoV-2 Antigen (Rapid) Negative (NEGATIVE) Test 01/21/21 17:15 01/21/21 17:35 01/21/21 21:30 01/22/21 05:15 O2 Saturation 99 % (92-99) Arterial Blood pH 7.21 (7.35-7.45) Arterial Blood pCO2 at Patient Temp 34 mmHg (35-46) Arterial Blood pO2 at Patient Temp 386 mmHg (75-108) Arterial Blood HCO3 13 mmol/L (21-28) Arterial Blood Base Excess -13 mmol/L (-3-3) FiO2 100 Urine Ketones (Stick) Negative mg/dL (NEG) Urine Opiates Screen Neg (NEG) Urine Methadone Screen Neg (NEG) Urine Barbiturates Neg (NEG) Urine Phencyclidine Screen Neg (NEG) Urine Amphetamine/Methamphetamine Neg (NEG) Urine Benzodiazepines Screen Pos (NEG) Urine Cocaine Screen Neg (NEG) Urine Cannabinoids Screen Neg (NEG) Urine Ethyl Alcohol Neg (NEG) White Blood Count 30.5 x10^3/uL (4.0-11.0) 23.9 x10^3/uL (4.0-11.0) Red Blood Count 4.82 x10^6/uL (4.30-5.70) 4.70 x10^6/uL (4.30-5.70) Hemoglobin 15.3 g/dL (13.0-17.5) 14.7 g/dL (13.0-17.5) Hematocrit 43.6 % (39.0-53.0) 42.9 % (39.0-53.0) Mean Corpuscular Volume 91 fL (79-100) 91 fL (79-100) Mean Corpuscular Hemoglobin 32 pg (25-35) 31 pg (25-35) Mean Corpuscular Hemoglobin Concent 35 g/dL (31-37) 34 g/dL (31-37) Red Cell Distribution Width 13.6 % (11.5-14.5) 13.8 % (11.5-14.5) Platelet Count 290 x10^3/uL (140-400) 250 x10^3/uL (140-400) Neutrophils (%) (Auto) 88 % (31-73) Lymphocytes (%) (Auto) 5 % (24-48) Monocytes (%) (Auto) 8 % (0-9) Eosinophils (%) (Auto) 0 % (0-3) Basophils (%) (Auto) 0 % (0-3) Neutrophils # (Auto) 26.8 x10^3/uL (1.8-7.7) Lymphocytes # (Auto) 1.4 x10^3/uL (1.0-4.8) Monocytes # (Auto) 2.3 x10^3/uL (0.0-1.1) Eosinophils # (Auto) 0.0 x10^3/uL (0.0-0.7) Basophils # (Auto) 0.0 x10^3/uL (0.0-0.2) Segmented Neutrophils % 86 % (35-66) Band Neutrophils % 5 % (0-9) Lymphocytes % 3 % (24-48) Monocytes % 6 % (0-10) Toxic Granulation Slight Platelet Estimate Adequate (ADEQUATE) Heparin Anti-Xa Act, Unfractionated 0.28 IU/mL (0.30-0.70) 0.45 IU/mL (0.30-0.70) Magnesium Level 2.6 mg/dL (1.8-2.4) Triglycerides Level 189 mg/dL (0-150) 206 mg/dL (0-150) Sodium Level 135 mmol/L (136-145) Potassium Level 4.2 mmol/L (3.5-5.1) Chloride Level 102 mmol/L (98-107) Carbon Dioxide Level 25 mmol/L (21-32) Anion Gap 8 (6-14) Blood Urea Nitrogen 19 mg/dL (8-26) Creatinine 1.4 mg/dL (0.7-1.3) Estimated GFR (Cockcroft-Gault) 54.1 Glucose Level 109 mg/dL (70-99) Calcium Level 7.3 mg/dL (8.5-10.1) Cholesterol Level 167 mg/dL (0-200) LDL Cholesterol, Calculated 100 mg/dL (0-100) VLDL Cholesterol, Calculated 41 mg/dL (0-40) Non-HDL Cholesterol Calculated 141 mg/dL (0-129) HDL Cholesterol 26 mg/dL (40-60) Cholesterol/HDL Ratio 6.4 Laboratory Tests Test 01/21/21 09:25 01/21/21 11:37 01/21/21 11:50 01/21/21 13:30 White Blood Count 15.5 x10^3/uL (4.0-11.0) Red Blood Count 4.66 x10^6/uL (4.30-5.70) Hemoglobin 15.1 g/dL (13.0-17.5) Hematocrit 47.8 % (39.0-53.0) Mean Corpuscular Volume 103 fL (79-100) Mean Corpuscular Hemoglobin 32 pg (25-35) Mean Corpuscular Hemoglobin Concent 32 g/dL (31-37) Red Cell Distribution Width 14.6 % (11.5-14.5) Platelet Count 304 x10^3/uL (140-400) Neutrophils (%) (Auto) 31 % (31-73) Lymphocytes (%) (Auto) 62 % (24-48) Monocytes (%) (Auto) 5 % (0-9) Eosinophils (%) (Auto) 1 % (0-3) Basophils (%) (Auto) 1 % (0-3) Neutrophils # (Auto) 4.8 x10^3/uL (1.8-7.7) Lymphocytes # (Auto) 9.6 x10^3/uL (1.0-4.8) Monocytes # (Auto) 0.7 x10^3/uL (0.0-1.1) Eosinophils # (Auto) 0.2 x10^3/uL (0.0-0.7) Basophils # (Auto) 0.2 x10^3/uL (0.0-0.2) Segmented Neutrophils % 18 % (35-66) Lymphocytes % 81 % (24-48) Monocytes % 1 % (0-10) Smudge Cells Present Platelet Estimate Adequate (ADEQUATE) Sodium Level 133 mmol/L (136-145) Potassium Level 6.2 mmol/L (3.5-5.1) Chloride Level 96 mmol/L (98-107) Carbon Dioxide Level 13 mmol/L (21-32) Anion Gap 24 (6-14) Blood Urea Nitrogen 13 mg/dL (8-26) Creatinine 1.8 mg/dL (0.7-1.3) Estimated GFR (Cockcroft-Gault) 40.5 BUN/Creatinine Ratio 7 (6-20) Glucose Level 428 mg/dL (70-99) Calcium Level 7.9 mg/dL (8.5-10.1) Magnesium Level 3.2 mg/dL (1.8-2.4) Total Bilirubin 0.4 mg/dL (0.2-1.0) Aspartate Amino Transf (AST/SGOT) 194 U/L (15-37) Alanine Aminotransferase (ALT/SGPT) 203 U/L (16-63) Alkaline Phosphatase 128 U/L (46-116) Troponin I Quantitative 5.019 ng/mL (0.000-0.055) DN-Ljy-[id number]-Type Natriuretic Peptide 50 pg/mL (0-124) Total Protein 6.6 g/dL (6.4-8.2) Albumin 3.4 g/dL (3.4-5.0) Albumin/Globulin Ratio 1.1 (1.0-1.7) Lipase 135 U/L (73-393) O2 Saturation 98 % (92-99) Arterial Blood pH 7.05 (7.35-7.45) Arterial Blood pCO2 at Patient Temp 36 mmHg (35-46) Arterial Blood pO2 at Patient Temp 148 mmHg (75-108) Arterial Blood HCO3 10 mmol/L (21-28) Arterial Blood Base Excess -20 mmol/L (-3-3) FiO2 100 SARS-CoV-2 Antigen (Rapid) Negative (NEGATIVE) Test 01/21/21 17:15 01/21/21 17:35 01/21/21 21:30 01/22/21 05:15 O2 Saturation 99 % (92-99) Arterial Blood pH 7.21 (7.35-7.45) Arterial Blood pCO2 at Patient Temp 34 mmHg (35-46) Arterial Blood pO2 at Patient Temp 386 mmHg (75-108) Arterial Blood HCO3 13 mmol/L (21-28) Arterial Blood Base Excess -13 mmol/L (-3-3) FiO2 100 Urine Ketones (Stick) Negative mg/dL (NEG) Urine Opiates Screen Neg (NEG) Urine Methadone Screen Neg (NEG) Urine Barbiturates Neg (NEG) Urine Phencyclidine Screen Neg (NEG) Urine Amphetamine/Methamphetamine Neg (NEG) Urine Benzodiazepines Screen Pos (NEG) Urine Cocaine Screen Neg (NEG) Urine Cannabinoids Screen Neg (NEG) Urine Ethyl Alcohol Neg (NEG) White Blood Count 30.5 x10^3/uL (4.0-11.0) 23.9 x10^3/uL (4.0-11.0) Red Blood Count 4.82 x10^6/uL (4.30-5.70) 4.70 x10^6/uL (4.30-5.70) Hemoglobin 15.3 g/dL (13.0-17.5) 14.7 g/dL (13.0-17.5) Hematocrit 43.6 % (39.0-53.0) 42.9 % (39.0-53.0) Mean Corpuscular Volume 91 fL (79-100) 91 fL (79-100) Mean Corpuscular Hemoglobin 32 pg (25-35) 31 pg (25-35) Mean Corpuscular Hemoglobin Concent 35 g/dL (31-37) 34 g/dL (31-37) Red Cell Distribution Width 13.6 % (11.5-14.5) 13.8 % (11.5-14.5) Platelet Count 290 x10^3/uL (140-400) 250 x10^3/uL (140-400) Neutrophils (%) (Auto) 88 % (31-73) Lymphocytes (%) (Auto) 5 % (24-48) Monocytes (%) (Auto) 8 % (0-9) Eosinophils (%) (Auto) 0 % (0-3) Basophils (%) (Auto) 0 % (0-3) Neutrophils # (Auto) 26.8 x10^3/uL (1.8-7.7) Lymphocytes # (Auto) 1.4 x10^3/uL (1.0-4.8) Monocytes # (Auto) 2.3 x10^3/uL (0.0-1.1) Eosinophils # (Auto) 0.0 x10^3/uL (0.0-0.7) Basophils # (Auto) 0.0 x10^3/uL (0.0-0.2) Segmented Neutrophils % 86 % (35-66) Band Neutrophils % 5 % (0-9) Lymphocytes % 3 % (24-48) Monocytes % 6 % (0-10) Toxic Granulation Slight Platelet Estimate Adequate (ADEQUATE) Heparin Anti-Xa Act, Unfractionated 0.28 IU/mL (0.30-0.70) 0.45 IU/mL (0.30-0.70) Magnesium Level 2.6 mg/dL (1.8-2.4) Triglycerides Level 189 mg/dL (0-150) 206 mg/dL (0-150) Sodium Level 135 mmol/L (136-145) Potassium Level 4.2 mmol/L (3.5-5.1) Chloride Level 102 mmol/L (98-107) Carbon Dioxide Level 25 mmol/L (21-32) Anion Gap 8 (6-14) Blood Urea Nitrogen 19 mg/dL (8-26) Creatinine 1.4 mg/dL (0.7-1.3) Estimated GFR (Cockcroft-Gault) 54.1 Glucose Level 109 mg/dL (70-99) Calcium Level 7.3 mg/dL (8.5-10.1) Cholesterol Level 167 mg/dL (0-200) LDL Cholesterol, Calculated 100 mg/dL (0-100) VLDL Cholesterol, Calculated 41 mg/dL (0-40) Non-HDL Cholesterol Calculated 141 mg/dL (0-129) HDL Cholesterol 26 mg/dL (40-60) Cholesterol/HDL Ratio 6.4 Medications Current Medications Heparin Sodium (Porcine) (Heparin Sodium) 10,000 unit STK-MED ONCE .ROUTE ; Start 01/21/21 at 09:18; Stop 01/21/21 at 09:18; Status DC Midazolam HCl (Versed) 5 mg 1X ONCE NS Last administered on 01/21/21at 08:00; Start 01/21/21 at 09:30; Stop 01/21/21 at 09:52; Status DC Epinephrine HCl (Adrenalin) 1 mg STK-MED ONCE .ROUTE ; Start 01/21/21 at 09:43; Stop 01/21/21 at 09:44; Status DC Epinephrine HCl (EPINEPHrine SYRINGE) 1 mg STK-MED ONCE .ROUTE ; Start 01/21/21 at 09:44; Stop 01/21/21 at 09:44; Status DC Dopamine HCl/ Dextrose 250 ml @ As Directed STK-MED ONCE IV ; Start 01/21/21 at 09:46; Stop 01/21/21 at 09:47; Status DC Bivalirudin (Angiomax) 250 mg STK-MED ONCE IV ; Start 01/21/21 at 09:53; Stop 01/21/21 at 09:53; Status DC Nitroglycerin (Nitroglycerin) 200 mcg STK-MED ONCE .ROUTE ; Start 01/21/21 at 10:00; Stop 01/21/21 at 10:00; Status DC Heparin Sodium (Porcine) (Heparin Sodium) 10,000 unit STK-MED ONCE .ROUTE ; Start 01/21/21 at 10:05; Stop 01/21/21 at 10:05; Status DC Nitroglycerin (Nitroglycerin) 200 mcg 1X ONCE IART Last administered on 01/21/21at 09:59; Start 01/21/21 at 10:30; Stop 01/21/21 at 10:32; Status DC Heparin Sodium/ Sodium Chloride (HEPARIN for ARTERIAL LINE FLUSH) 1,000 unit 1X ONCE IART Last administered on 01/21/21at 10:30; Start 01/21/21 at 10:30; Stop 01/21/21 at 10:32; Status DC Heparin Sodium/ Sodium Chloride (HEPARIN for ARTERIAL LINE FLUSH) 1,000 unit 1X ONCE IART Last administered on 01/21/21at 10:30; Start 01/21/21 at 10:30; Stop 01/21/21 at 10:32; Status DC Iodixanol (Visipaque 320) 100 ml 1X ONCE IART Last administered on 01/21/21at 10:30; Start 01/21/21 at 10:30; Stop 01/21/21 at 10:32; Status DC Bivalirudin (Angiomax) 250 mg 1X ONCE IV Last administered on 01/21/21at 09:54; Start 01/21/21 at 10:30; Stop 01/21/21 at 10:32; Status DC Lidocaine HCl (Lidocaine 1% 20ml Vial) 20 ml 1X ONCE INJ Last administered on 01/21/21at 09:49; Start 01/21/21 at 10:30; Stop 01/21/21 at 10:32; Status DC Dopamine HCl/ Dextrose 250 ml @ 14.438 mls/ hr 1X ONCE IV Last administered on 01/21/21at 09:48; Start 01/21/21 at 10:30; Stop 01/21/21 at 14:04; Status DC Epinephrine HCl (EPINEPHrine SYRINGE) 1.5 mg 1X ONCE IV Last administered on 01/21/21at 09:57; Start 01/21/21 at 10:15; Stop 01/21/21 at 10:29; Status DC Clopidogrel Bisulfate (Plavix) 600 mg 1X ONCE PO Last administered on 01/21/21at 10:30; Start 01/21/21 at 10:30; Stop 01/21/21 at 10:32; Status DC Aspirin (Yung Aspirin) 325 mg 1X ONCE PO Last administered on 01/21/21at 10:30; Start 01/21/21 at 10:30; Stop 01/21/21 at 15:44; Status DC Heparin Sodium (Porcine) (Heparin 5,000 Units/1,000ml NS) 5,000 unit 1X ONCE IV Last administered on 01/21/21at 10:05; Start 01/21/21 at 10:30; Stop 01/21/21 at 10:32; Status DC Sodium Chloride 1,000 ml @ 75 mls/hr [id number] IV ; Start 01/21/21 at 10:30 Aspirin (Ecotrin) 325 mg DAILYWBKFT PO ; Start 01/22/21 at 08:00; Stop 01/21/21 at 10:34; Status DC Clopidogrel Bisulfate (Plavix) 75 mg DAILYWBKFT PO ; Start 01/22/21 at 08:00; Stop 01/21/21 at 10:34; Status DC Atorvastatin Calcium (Lipitor) 40 mg QHS PO ; Start 01/21/21 at 21:00; Stop 01/21/21 at 10:34; Status DC Aspirin (Ecotrin) 325 mg DAILYWBKFT PO ; Start 01/22/21 at 08:00; Stop 01/21/21 at 17:18; Status DC Clopidogrel Bisulfate (Plavix) 75 mg DAILYWBKFT PO ; Start 01/22/21 at 08:00 Atorvastatin Calcium (Lipitor) 40 mg QHS PO Last administered on 01/21/21at 21:09; Start 01/21/21 at 21:00 Etomidate (Amidate) 20 mg STK-MED ONCE IV ; Start 01/21/21 at 11:01; Stop 01/21/21 at 11:01; Status DC Vecuronium Kiel (Norcuron Bolus) 10 mg STK-MED ONCE IV ; Start 01/21/21 at 11:01; Stop 01/21/21 at 11:01; Status DC Succinylcholine Chloride (Anectine) 200 mg STK-MED ONCE .ROUTE ; Start 01/21/21 at 11:03; Stop 01/21/21 at 11:03; Status DC Norepinephrine Bitartrate 8 mg/ Dextrose 258 ml @ 14.9 mls/hr CONT PRN IV PER PROTOCOL Last administered on 01/21/21at 12:00; Start 01/21/21 at 11:15; Stop 01/21/21 at 15:38; Status DC Lorazepam (Ativan Inj) 2 mg STK-MED ONCE .ROUTE ; Start 01/21/21 at 11:20; Stop 01/21/21 at 11:20; Status DC Fentanyl Citrate (Fentanyl 2ml Vial) 25 mcg PRN Q1HR PRN IV SEE COMMENTS; Start 01/21/21 at 11:30; Stop 01/21/21 at 15:44; Status DC Fentanyl Citrate (Fentanyl 2ml Vial) 50 mcg PRN Q1HR PRN IV SEE COMMENTS; Start 01/21/21 at 11:30; Stop 01/21/21 at 15:44; Status DC Morphine Sulfate (Morphine Sulfate) 2 mg PRN Q1HR PRN IV SEE COMMENTS.; Start 01/21/21 at 11:30 Morphine Sulfate (Morphine Sulfate) 4 mg PRN Q1HR PRN IV SEE COMMENTS.; Start 01/21/21 at 11:30 Lorazepam (Ativan Inj) 0.5 mg PRN Q6HRS PRN IVP ANXIETY / AGITATION; Start 01/21/21 at 13:00; Stop 01/21/21 at 15:44; Status DC Lorazepam (Ativan) 1 mg PRN Q6HRS PRN PO ANXIETY / AGITATION; Start 01/21/21 at 13:00 Ondansetron HCl (Zofran) 4 mg PRN Q6HRS PRN IVP NAUSEA/VOMITING; Start 01/21/21 at 13:00 Al Hydroxide/Mg Hydroxide (Mylanta Plus Xs) 30 ml PRN Q3HRS PRN PO HEARTBURN / GAS; Start 01/21/21 at 13:00 Calcium Carbonate/ Glycine (Tums) 500 mg PRN Q3HRS PRN PO HEARTBURN / GAS; Start 01/21/21 at 13:00 Famotidine (Pepcid Vial) 20 mg BID IVP Last administered on 01/21/21at 21:09; Start 01/21/21 at 21:00 Heparin Sodium (Porcine) (Heparin Sodium) 5,000 unit Q8HRS SQ ; Start 01/21/21 at 14:00; Stop 01/21/21 at 13:40; Status DC Sodium Chloride (Normal Saline Flush) 3 ml QSHIFT PRN IV AFTER MEDS AND BLOOD DRAWS; Start 01/21/21 at 13:00 Morphine Sulfate (Morphine Sulfate) 2 mg PRN Q1HR PRN IV PAIN; Start 01/21/21 at 13:00 Lorazepam (Ativan Inj) 2 mg PRN Q10MIN PRN IVP SEE COMMENTS; Start 01/21/21 at 13:30 Midazolam HCl (Versed) 5 mg STK-MED ONCE .ROUTE ; Start 01/21/21 at 13:33; Stop 01/21/21 at 13:33; Status DC Midazolam HCl (Versed) 5 mg 1X ONCE IV Last administered on 01/21/21at 13:45; Start 01/21/21 at 13:45; Stop 01/21/21 at 13:51; Status DC Heparin Sodium/ Dextrose 250 ml @ 9.24 mls/hr CONT PRN IV PER PROTOCOL Last administered on 01/21/21at 15:24; Start 01/21/21 at 13:45 Heparin Sodium (Porcine) (Heparin Sodium) 1,950 unit PRN Q6HRS PRN IV FOR UFH LEVEL LESS THAN 0.2; Start 01/21/21 at 13:45 Fentanyl Citrate (Fentanyl 2ml Vial) 100 mcg 1X ONCE IV ; Start 01/21/21 at 13:30; Stop 01/21/21 at 15:44; Status DC Midazolam HCl (Versed) 2 mg 1X ONCE IV ; Start 01/21/21 at 13:30; Stop 01/21/21 at 14:03; Status DC Magnesium Sulfate/ Dextrose 100 ml @ 100 mls/hr 1X ONCE IV ; Start 01/21/21 at 13:30; Stop 01/21/21 at 15:44; Status DC Buspirone HCl (Buspar) 30 mg Q8H NG ; Start 01/21/21 at 14:00; Stop 01/21/21 at 15:44; Status DC Acetaminophen (Tylenol) 650 mg Q4HRS NG ; Start 01/21/21 at 14:00; Stop 01/21/21 at 15:44; Status DC Glycerin/ Hypromellose/ Polyethylene (Artificial Tears) 1 drop Q6HRS OU Last administered on 01/21/21at 18:00; Start 01/21/21 at 18:00 Glycerin/ Hypromellose/ Polyethylene (Artificial Tears) 1 drop PRN Q15MIN PRN OU DRY EYE; Start 01/21/21 at 13:30 Pantoprazole Sodium (PROTONIX VIAL for IV PUSH) 40 mg DAILY IVP ; Start 01/21/21 at 14:00; Stop 01/21/21 at 15:44; Status DC Fentanyl Citrate 30 ml @ 0 mls/hr CONT PRN IV PER PROTOCOL. Last administered on 01/22/21at 02:26; Start 01/21/21 at 13:30 Midazolam HCl 100 ml @ 2 mls/hr CONT PRN IV PER PROTOCOL Last administered on 01/22/21at 00:37; Start 01/21/21 at 13:30 Vecuronium Kiel (Norcuron Bolus) 8 mg PRN Q1HR PRN IV SHIVERING; Start 01/21/21 at 13:30; Stop 01/21/21 at 15:44; Status DC Sodium Bicarbonate 150 meq/Dextrose 1,150 ml @ 75 mls/hr [id number] IV Last administered on 01/22/21at 05:41; Start 01/21/21 at 14:00 Dopamine HCl/ Dextrose 250 ml @ 14.438 mls/ hr CONT PRN IV SEE I/O RECORD Last administered on 01/21/21at 14:00; Start 01/21/21 at 14:00 Aspirin (Yung Aspirin) 325 mg DAILYWBKFT PO ; Start 01/22/21 at 08:00 Norepinephrine Bitartrate 8 mg/ Dextrose 258 ml @ 14.9 mls/hr CONT PRN IV PER PROTOCOL; Start 01/21/21 at 20:45 Vitals/I & O Vital Sign - Last 24 Hours 01/21/21 01/21/21 01/21/21 01/21/21 09:25 10:50 11:10 11:51 Temp 97.5 97.5 Pulse 106 112 Resp 17 18 B/P (MAP) 113/57 (75) Pulse Ox 100 100 O2 Delivery Ventilator Ventilator Ventilator Ventilator O2 Flow Rate 15.0 01/21/21 01/21/21 01/21/21 01/21/21 12:00 12:40 13:00 13:04 Temp 94.0 95.1 94.0 95.1 Pulse 122 117 Resp 24 24 B/P (MAP) 97/58 (71) 85/64 (71) Pulse Ox 100 100 100 O2 Delivery Ventilator Mechanical Ventilator Ventilator Ventilator 01/21/21 01/21/21 01/21/21 01/21/21 13:46 14:00 15:00 15:00 Temp 95.1 95.2 95.4 95.2 95.4 Pulse 116 107 102 Resp 24 24 24 24 B/P (MAP) 98/77 100/55 (70) 106/59 (75) Pulse Ox 100 100 100 100 O2 Delivery Ventilator Ventilator Ventilator Ventilator 01/21/21 01/21/21 01/21/21 01/21/21 15:43 16:00 16:00 16:05 Temp 95.7 95.7 Pulse 79 Resp 24 B/P (MAP) 91/60 (70) Pulse Ox 100 100 100 O2 Delivery Ventilator Ventilator Mechanical Ventilator Ventilator 01/21/21 01/21/21 01/21/21 01/21/21 17:00 17:32 18:00 19:00 Temp 96.4 97.2 97.5 96.4 97.2 97.5 Pulse 79 86 81 Resp 24 24 24 B/P (MAP) 96/62 (73) 89/57 (68) 88/55 Pulse Ox 100 100 60 100 O2 Delivery Ventilator Ventilator Ventilator Ventilator 01/21/21 01/21/21 01/21/21 01/21/21 19:30 19:40 19:45 20:00 Temp 97.9 98.1 98.1 97.9 97.9 98.1 98.1 97.9 Pulse 80 80 80 83 Resp 24 24 24 24 B/P (MAP) 85/54 84/52 79/52 98/61 Pulse Ox 100 100 100 100 O2 Delivery Ventilator Ventilator Ventilator Ventilator 01/21/21 01/21/21 01/21/21 01/21/21 20:00 20:02 21:00 21:45 Temp 98.2 98.2 98.2 98.2 Pulse 80 87 Resp 24 24 B/P (MAP) 89/54 115/57 Pulse Ox 100 100 100 O2 Delivery Mechanical Ventilator Ventilator Ventilator Ventilator 01/21/21 01/21/21 01/21/21 01/21/21 22:00 22:15 22:30 23:00 Temp 98.2 98.4 98.4 98.2 98.4 98.4 Pulse 90 91 97 Resp 24 24 24 B/P (MAP) 120/60 115/58 116/59 Pulse Ox 100 100 100 100 O2 Delivery Ventilator Ventilator Ventilator Ventilator 01/22/21 01/22/21 01/22/21 01/22/21 00:00 00:00 00:50 01:00 Temp 98.6 99.0 98.6 99.0 Pulse 96 81 Resp 24 24 B/P (MAP) 94/54 89/52 Pulse Ox 100 100 100 O2 Delivery Ventilator Mechanical Ventilator Ventilator Ventilator 01/22/21 01/22/21 01/22/21 01/22/21 02:00 03:00 03:30 04:00 Temp 99.1 99.1 99.1 99.1 Pulse 92 92 Resp 24 24 B/P (MAP) 109/64 101/57 Pulse Ox 100 100 100 O2 Delivery Ventilator Ventilator Ventilator Mechanical Ventilator 01/22/21 01/22/21 01/22/21 01/22/21 04:00 05:00 05:45 06:00 Temp 99.4 99.9 99.9 99.4 99.9 99.9 Pulse 102 98 101 Resp 24 24 24 B/P (MAP) 113/63 102/59 114/65 Pulse Ox 100 100 100 99 O2 Delivery Ventilator Ventilator Ventilator Ventilator 01/22/21 07:00 Temp 99.7 99.7 Pulse 110 Resp 24 B/P (MAP) 93/70 Pulse Ox 99 O2 Delivery Ventilator Intake and Output 01/21/21 01/21/21 01/22/21 15:00 23:00 07:00 Intake Total 2343 ml Output Total 1200 ml 445 ml 515 ml Balance -1200 ml -445 ml 1828 ml Justicifation of Admission Dx: Justifications for Admission: Justification of Admission Dx: N/A SUSANA JOHANSEN MD Jan 22, 2021 08:45
[2021-01-22] MEDS: ASPIRIN 325 MG TABLET PO SCH (08:51)
[2021-01-22] MEDS: FAMOTIDINE 20 MG/2 ML VIAL IVP SCH ×2 (08:51→20:02)
[2021-01-22] MEDS: CLOPIDOGREL BISULFATE 75 MG TABLET PO SCH (08:51)
[2021-01-22 09:17] LABS: BASE EXCESS ABG -3 mmol/L (-3-3); HCO3 ABG 22 mmol/L (21-28); PCO2 ABG 38 mmHg (35-46); PO2 ABG 81 mmHg (75-108); SAT O2 ABG 96 % (92-99)
[2021-01-22 09:20] LABS: FIO2 ABG 40
[2021-01-22] MEDS: HEPARIN 25,000UTS/250ML PREMIX 250 ML IV PRN (09:54)
--- NOTE | 2021-01-22 11:25 | PDOC ---
EDGRA CANNON [employer] 01/22/21 1125: CARDIO Progress Notes Date and Time Date of Service 01/22/2021 Time of Evaluation 0940 Subjective Subjective: No Chest Pain, No shortness of breath, No Palpitations Vitals Vitals Vital Signs Date Time Temp Pulse Resp B/P (MAP) Pulse Ox O2 Delivery O2 Flow Rate FiO2 01/22/21 09:49 99 Ventilator 15.0 01/22/21 09:00 99.7 116 24 121/73 99.7 Weight Weight [ ] Input and Output Intake and Output Intake and Output 01/22/21 07:00 Intake Total 2343 ml Output Total 2160 ml Balance 183 ml Intake IV Total 2343 ml Output Urine Total 2160 ml Laboratory Labs Laboratory Tests Test 01/21/21 11:37 01/21/21 11:50 01/21/21 13:30 01/21/21 17:15 Sodium Level 133 mmol/L (136-145) Potassium Level 6.2 mmol/L (3.5-5.1) Chloride Level 96 mmol/L (98-107) Carbon Dioxide Level 13 mmol/L (21-32) Anion Gap 24 (6-14) Blood Urea Nitrogen 13 mg/dL (8-26) Creatinine 1.8 mg/dL (0.7-1.3) Estimated GFR (Cockcroft-Gault) 40.5 BUN/Creatinine Ratio 7 (6-20) Glucose Level 428 mg/dL (70-99) Calcium Level 7.9 mg/dL (8.5-10.1) Magnesium Level 3.2 mg/dL (1.8-2.4) Total Bilirubin 0.4 mg/dL (0.2-1.0) Aspartate Amino Transf (AST/SGOT) 194 U/L (15-37) Alanine Aminotransferase (ALT/SGPT) 203 U/L (16-63) Alkaline Phosphatase 128 U/L (46-116) Troponin I Quantitative 5.019 ng/mL (0.000-0.055) HN-Bho-Q-Type Natriuretic Peptide 50 pg/mL (0-124) Total Protein 6.6 g/dL (6.4-8.2) Albumin 3.4 g/dL (3.4-5.0) Albumin/Globulin Ratio 1.1 (1.0-1.7) Lipase 135 U/L (73-393) O2 Saturation 98 % (92-99) 99 % (92-99) Arterial Blood pH 7.05 (7.35-7.45) 7.21 (7.35-7.45) Arterial Blood pCO2 at Patient Temp 36 mmHg (35-46) 34 mmHg (35-46) Arterial Blood pO2 at Patient Temp 148 mmHg (75-108) 386 mmHg (75-108) Arterial Blood HCO3 10 mmol/L (21-28) 13 mmol/L (21-28) Arterial Blood Base Excess -20 mmol/L (-3-3) -13 mmol/L (-3-3) FiO2 100 100 SARS-CoV-2 Antigen (Rapid) Negative (NEGATIVE) Test 01/21/21 17:35 01/21/21 21:30 01/22/21 05:15 01/22/21 09:00 Urine Ketones (Stick) Negative mg/dL (NEG) Urine Opiates Screen Neg (NEG) Urine Methadone Screen Neg (NEG) Urine Barbiturates Neg (NEG) Urine Phencyclidine Screen Neg (NEG) Urine Amphetamine/Methamphetamine Neg (NEG) Urine Benzodiazepines Screen Pos (NEG) Urine Cocaine Screen Neg (NEG) Urine Cannabinoids Screen Neg (NEG) Urine Ethyl Alcohol Neg (NEG) White Blood Count 30.5 x10^3/uL (4.0-11.0) 23.9 x10^3/uL (4.0-11.0) Red Blood Count 4.82 x10^6/uL (4.30-5.70) 4.70 x10^6/uL (4.30-5.70) Hemoglobin 15.3 g/dL (13.0-17.5) 14.7 g/dL (13.0-17.5) Hematocrit 43.6 % (39.0-53.0) 42.9 % (39.0-53.0) Mean Corpuscular Volume 91 fL (79-100) 91 fL (79-100) Mean Corpuscular Hemoglobin 32 pg (25-35) 31 pg (25-35) Mean Corpuscular Hemoglobin Concent 35 g/dL (31-37) 34 g/dL (31-37) Red Cell Distribution Width 13.6 % (11.5-14.5) 13.8 % (11.5-14.5) Platelet Count 290 x10^3/uL (140-400) 250 x10^3/uL (140-400) Neutrophils (%) (Auto) 88 % (31-73) Lymphocytes (%) (Auto) 5 % (24-48) Monocytes (%) (Auto) 8 % (0-9) Eosinophils (%) (Auto) 0 % (0-3) Basophils (%) (Auto) 0 % (0-3) Neutrophils # (Auto) 26.8 x10^3/uL (1.8-7.7) Lymphocytes # (Auto) 1.4 x10^3/uL (1.0-4.8) Monocytes # (Auto) 2.3 x10^3/uL (0.0-1.1) Eosinophils # (Auto) 0.0 x10^3/uL (0.0-0.7) Basophils # (Auto) 0.0 x10^3/uL (0.0-0.2) Segmented Neutrophils % 86 % (35-66) Band Neutrophils % 5 % (0-9) Lymphocytes % 3 % (24-48) Monocytes % 6 % (0-10) Toxic Granulation Slight Platelet Estimate Adequate (ADEQUATE) Heparin Anti-Xa Act, Unfractionated 0.28 IU/mL (0.30-0.70) 0.45 IU/mL (0.30-0.70) Magnesium Level 2.6 mg/dL (1.8-2.4) Triglycerides Level 189 mg/dL (0-150) 206 mg/dL (0-150) Sodium Level 135 mmol/L (136-145) Potassium Level 4.2 mmol/L (3.5-5.1) Chloride Level 102 mmol/L (98-107) Carbon Dioxide Level 25 mmol/L (21-32) Anion Gap 8 (6-14) Blood Urea Nitrogen 19 mg/dL (8-26) Creatinine 1.4 mg/dL (0.7-1.3) Estimated GFR (Cockcroft-Gault) 54.1 Glucose Level 109 mg/dL (70-99) Calcium Level 7.3 mg/dL (8.5-10.1) Cholesterol Level 167 mg/dL (0-200) LDL Cholesterol, Calculated 100 mg/dL (0-100) VLDL Cholesterol, Calculated 41 mg/dL (0-40) Non-HDL Cholesterol Calculated 141 mg/dL (0-129) HDL Cholesterol 26 mg/dL (40-60) Cholesterol/HDL Ratio 6.4 O2 Saturation 96 % (92-99) Arterial Blood pH 7.38 (7.35-7.45) Arterial Blood pCO2 at Patient Temp 38 mmHg (35-46) Arterial Blood pO2 at Patient Temp 81 mmHg (75-108) Arterial Blood HCO3 22 mmol/L (21-28) Arterial Blood Base Excess -3 mmol/L (-3-3) FiO2 40 Physical Exam HEENT: Neck Supple W Full Motion Chest: Symmetric LUNGS: Other (intubated, diminished) Heart: RRR (sr) Neurology: alert, oriented, follow commands, other (OFF SEDATION) Other Exams DP and PT pulses to right could not appreciate via doppler. Cool but no cyanosis from mid calf to right foot. Positive sensation and mobility. No pain. IABP in place with arterial catheter in place to right femoral artery. Assessment Assessment 1. Acute posterior wall STEMI: s/p PCI/PEDRO to LCX. 2. Ventricular fibrillation and cardiac arrest - ischemic etiology, none further 3. Cardiogenic shock, acute diastolic heart failure: s/p IABP insertion and on pressors. LVEDP elevated and Ventriculogram showed EF 50% and severe MR. 4. Mitral Regurgitation probably from papillary muscle dysfunction seen with posterior LA. 5. Acute respiratory failure s/p intubation.off sedation, tolerated weaning. pulmonary following 6. Metabolic acidosis, hyperkalemia: improved 7. Transaminitis: probably from cardiogenic shock 8. RLE arterial insufficiency: no cyanosis, pain 9. covid-19: per PCP Recommendations 1. Continue heparin drip. ASA/plavix. RLE sono. Discussed with primary tongue and groove machine feeder 2. Secondary prevention measures 3. No rewarmed Off pressors BP stable, Will switch off IABP and note response and will plan to discontinue IABP today. Extubation today 4. TTE, A1C, UA 5. Cardiac rehab 6. Lasix PRN. excellent UOP Justicifation of Admission Dx: Justifications for Admission: Justification of Admission Dx: N/A MISHEL YOUNGER MD 01/22/211954: CARDIO Progress Notes Assessment Assessment Patient seen and examined. Agree with HUM[employer] TEMP's assessment and plan. Acute posterior STEMI s/p PCI/PEDRO to LCX, stable Cardiac arrest from ischemic VT/VF without any further episodes Ac resp failure secondary to above s/p extubation earlier today Covid positive pulm following Cardiogenic shock improved, off pressors, IABP successfully removed Absent pulses with poor distal flow on art duplex RLE - improved pulses post IABP removal We will consider aortogram as outpatient EDGAR CANNON APRN Jan 22, 2021 11:25 MISHEL YOUNGER MD Jan 22, 2021 19:55
--- NOTE | 2021-01-22 11:30 | PDOC ---
[facility] PROGRESS NOTE Date of Service DOS: DATE: 01/22/21 TIME: 11:28 Chief Complaint Chief Complaint STEMI, right circ 100%, stent placed acute systolic CHF, requiring balloon pump in ICU acute respiratory failure due to CHF and acute NV, on vent, better, will extubate today COVID pos on screen, acute Metabolic acidosis Diabetes Hyperkalemia Transaminitis HTN History of epilepsy Generalized anxiety disorder probable alcohol abuse, History of Present Illness History of Present Illness extubate today CV To manage balloon pump for acute cHF better, he wants vent out, reports he is thirsty, Vitals/I&O Vitals/I&O: Vital Signs Date Time Temp Pulse Resp B/P (MAP) Pulse Ox O2 Delivery O2 Flow Rate FiO2 01/22/21 09:49 99 Ventilator 15.0 01/22/21 09:00 99.7 116 24 121/73 99.7 I & O 01/21/21 01/21/21 01/22/21 15:00 23:00 07:00 Intake Total 2343 ml Output Total 1200 ml 445 ml 515 ml Balance -1200 ml -445 ml 1828 ml Physical Exam Physical Exam: on vent, writing and gesturing to excellent ability General: Alert, Cooperative, mild distress, Other (intubated) Heart: Regular rate Lungs: Clear Abdomen: Soft Extremities: No edema Skin: No breakdown Labs Labs: Laboratory Tests Test 01/21/21 11:37 01/21/21 11:50 01/21/21 13:30 01/21/21 17:15 Sodium Level 133 mmol/L (136-145) Potassium Level 6.2 mmol/L (3.5-5.1) Chloride Level 96 mmol/L (98-107) Carbon Dioxide Level 13 mmol/L (21-32) Anion Gap 24 (6-14) Blood Urea Nitrogen 13 mg/dL (8-26) Creatinine 1.8 mg/dL (0.7-1.3) Estimated GFR (Cockcroft-Gault) 40.5 BUN/Creatinine Ratio 7 (6-20) Glucose Level 428 mg/dL (70-99) Calcium Level 7.9 mg/dL (8.5-10.1) Magnesium Level 3.2 mg/dL (1.8-2.4) Total Bilirubin 0.4 mg/dL (0.2-1.0) Aspartate Amino Transf (AST/SGOT) 194 U/L (15-37) Alanine Aminotransferase (ALT/SGPT) 203 U/L (16-63) Alkaline Phosphatase 128 U/L (46-116) Troponin I Quantitative 5.019 ng/mL (0.000-0.055) QI-Tps-B-Type Natriuretic Peptide 50 pg/mL (0-124) Total Protein 6.6 g/dL (6.4-8.2) Albumin 3.4 g/dL (3.4-5.0) Albumin/Globulin Ratio 1.1 (1.0-1.7) Lipase 135 U/L (73-393) O2 Saturation 98 % (92-99) 99 % (92-99) Arterial Blood pH 7.05 (7.35-7.45) 7.21 (7.35-7.45) Arterial Blood pCO2 at Patient Temp 36 mmHg (35-46) 34 mmHg (35-46) Arterial Blood pO2 at Patient Temp 148 mmHg (75-108) 386 mmHg (75-108) Arterial Blood HCO3 10 mmol/L (21-28) 13 mmol/L (21-28) Arterial Blood Base Excess -20 mmol/L (-3-3) -13 mmol/L (-3-3) FiO2 100 100 SARS-CoV-2 RNA (DIMA) Positive (Negative) SARS-CoV-2 Antigen (Rapid) Negative (NEGATIVE) Test 01/21/21 17:35 01/21/21 21:30 01/22/21 05:15 01/22/21 09:00 Urine Ketones (Stick) Negative mg/dL (NEG) Urine Opiates Screen Neg (NEG) Urine Methadone Screen Neg (NEG) Urine Barbiturates Neg (NEG) Urine Phencyclidine Screen Neg (NEG) Urine Amphetamine/Methamphetamine Neg (NEG) Urine Benzodiazepines Screen Pos (NEG) Urine Cocaine Screen Neg (NEG) Urine Cannabinoids Screen Neg (NEG) Urine Ethyl Alcohol Neg (NEG) White Blood Count 30.5 x10^3/uL (4.0-11.0) 23.9 x10^3/uL (4.0-11.0) Red Blood Count 4.82 x10^6/uL (4.30-5.70) 4.70 x10^6/uL (4.30-5.70) Hemoglobin 15.3 g/dL (13.0-17.5) 14.7 g/dL (13.0-17.5) Hematocrit 43.6 % (39.0-53.0) 42.9 % (39.0-53.0) Mean Corpuscular Volume 91 fL (79-100) 91 fL (79-100) Mean Corpuscular Hemoglobin 32 pg (25-35) 31 pg (25-35) Mean Corpuscular Hemoglobin Concent 35 g/dL (31-37) 34 g/dL (31-37) Red Cell Distribution Width 13.6 % (11.5-14.5) 13.8 % (11.5-14.5) Platelet Count 290 x10^3/uL (140-400) 250 x10^3/uL (140-400) Neutrophils (%) (Auto) 88 % (31-73) Lymphocytes (%) (Auto) 5 % (24-48) Monocytes (%) (Auto) 8 % (0-9) Eosinophils (%) (Auto) 0 % (0-3) Basophils (%) (Auto) 0 % (0-3) Neutrophils # (Auto) 26.8 x10^3/uL (1.8-7.7) Lymphocytes # (Auto) 1.4 x10^3/uL (1.0-4.8) Monocytes # (Auto) 2.3 x10^3/uL (0.0-1.1) Eosinophils # (Auto) 0.0 x10^3/uL (0.0-0.7) Basophils # (Auto) 0.0 x10^3/uL (0.0-0.2) Segmented Neutrophils % 86 % (35-66) Band Neutrophils % 5 % (0-9) Lymphocytes % 3 % (24-48) Monocytes % 6 % (0-10) Toxic Granulation Slight Platelet Estimate Adequate (ADEQUATE) Heparin Anti-Xa Act, Unfractionated 0.28 IU/mL (0.30-0.70) 0.45 IU/mL (0.30-0.70) Magnesium Level 2.6 mg/dL (1.8-2.4) Triglycerides Level 189 mg/dL (0-150) 206 mg/dL (0-150) Sodium Level 135 mmol/L (136-145) Potassium Level 4.2 mmol/L (3.5-5.1) Chloride Level 102 mmol/L (98-107) Carbon Dioxide Level 25 mmol/L (21-32) Anion Gap 8 (6-14) Blood Urea Nitrogen 19 mg/dL (8-26) Creatinine 1.4 mg/dL (0.7-1.3) Estimated GFR (Cockcroft-Gault) 54.1 Glucose Level 109 mg/dL (70-99) Calcium Level 7.3 mg/dL (8.5-10.1) Cholesterol Level 167 mg/dL (0-200) LDL Cholesterol, Calculated 100 mg/dL (0-100) VLDL Cholesterol, Calculated 41 mg/dL (0-40) Non-HDL Cholesterol Calculated 141 mg/dL (0-129) HDL Cholesterol 26 mg/dL (40-60) Cholesterol/HDL Ratio 6.4 O2 Saturation 96 % (92-99) Arterial Blood pH 7.38 (7.35-7.45) Arterial Blood pCO2 at Patient Temp 38 mmHg (35-46) Arterial Blood pO2 at Patient Temp 81 mmHg (75-108) Arterial Blood HCO3 22 mmol/L (21-28) Arterial Blood Base Excess -3 mmol/L (-3-3) FiO2 40 Assessment and Plan Assessmemt and Plan Problems Medical Problems: (1) STEMI (ST elevation myocardial infarction) Status: Acute Comment Review of Relevant I have reviewed the following items salvador (where applicable) has been applied. Medications: Current Medications Medications (Trade) Dose Ordered Sig/Quinton Route PRN Reason Start Time Stop Time Status Last Admin Dose Admin Clopidogrel Bisulfate (Plavix) 75 mg DAILYWBKFT PO 01/22/21 08:00 01/22/21 08:51 Atorvastatin Calcium (Lipitor) 40 mg QHS PO 01/21/21 21:00 01/21/21 21:09 Famotidine (Pepcid Vial) 20 mg BID IVP 01/21/21 21:00 01/22/21 08:51 Midazolam HCl (Versed) 5 mg 1X ONCE IV 01/21/21 13:45 01/21/21 13:51 DC 01/21/21 13:45 Heparin Sodium/ Dextrose 250 ml @ 9.24 mls/hr CONT PRN IV PER PROTOCOL 01/21/21 13:45 01/22/21 09:54 Glycerin/ Hypromellose/ Polyethylene (Artificial Tears) 1 drop Q6HRS OU 01/21/21 18:00 01/21/21 18:00 Fentanyl Citrate 30 ml @ 0 mls/hr CONT PRN IV PER PROTOCOL. 01/21/21 13:30 01/22/21 09:49 Midazolam HCl 100 ml @ 2 mls/hr CONT PRN IV PER PROTOCOL 01/21/21 13:30 01/22/21 00:37 Sodium Bicarbonate 150 meq/Dextrose 1,150 ml @ 75 mls/hr [id number] IV 01/21/21 14:00 01/22/21 05:41 Dopamine HCl/ Dextrose 250 ml @ 14.438 mls/ hr CONT PRN IV SEE I/O RECORD 01/21/21 14:00 01/21/21 14:00 Aspirin (Yung Aspirin) 325 mg DAILYWBKFT PO 01/22/21 08:00 01/22/21 08:51 Justifications for Admission Other Justification ADRY SEGOVIA MD Jan 22, 2021 11:30
[2021-01-22] MEDS ORDERED: DEXTROSE 50% 25 GM / 50ML DISP.SYRIN. IV PRN (11:45)
[2021-01-22 11:58] LABS: DIRECT BILIRUBIN 0.2 mg/dL (0.0-0.2); TOTAL BILIRUBIN 0.4 mg/dL (0.2-1.0); TOTAL PROTEIN 5.9 g/dL (6.4-8.2)
[2021-01-22] MEDS ORDERED: THIAMINE INJ 100 MG in IV DEXTROSE 5% 50 ML IV ONE (12:00)
[2021-01-22] MEDS: INSULIN LISPRO 300 UNITS/3 ML VIAL. SQ SCH ×2 (12:00→17:00)
--- NOTE | 2021-01-22 12:45 | NUR ---
Hemostasis right groin 1230, able to palpate dorsalis pedis after immediately after removal. Double verified pulses with offset label rewinder and groin site, C/D/I, soft without hematoma.
[2021-01-22] MEDS: ZINC SULFATE 220 MG CAPSULE. PO SCH (13:00)
[2021-01-22] MEDS: DEXAMETHASONE SOD PHOS 4 MG/ML VIAL IVP SCH (13:00)
[2021-01-22] MEDS: IV 1/2 NORMAL SALINE 1,000 ML IV SCH (13:10)
--- NOTE | 2021-01-22 15:30 | NUR ---
Raman updated regarding right foot pulses. Able to palpate +1, foot warm to touch, patient experiencing "pressure" like feeling in foot. Klever hamilton ordered and applied.
--- NOTE | 2021-01-22 16:44 | NUR ---
SS following for discharge planning. SS reviewed pt chart and discussed with pt RN. Pt is from home with spouse and is extubated and on three liters nasal canula. COVID19 negative. Balloon pump removed today. SS will continue to follow for discharge planning.
[2021-01-22] MEDS ORDERED: fentaNYL PF VIAL 100 MCG/2 ML VIAL IVP PRN (16:45)
[2021-01-22 16:57] LABS: BILIRUBIN,URINE NEGATIVE (NEG); CLARITY,URINE CLEAR; COLOR,URINE RED; NITRITE,URINE NEGATIVE (NEG); PH,URINE 7.5 (<5.0-8.0); PROTEIN,URINE 100 mg/dL (NEG-TRACE)
[2021-01-22 17:04] LABS: BACTERIA,URINE 0 /HPF (0-FEW); GRANULAR CASTS,URINE MODERATE /HPF; WBC,URINE 0 /HPF (0-4)
--- NOTE | 2021-01-22 17:06 | CARD ---
MR#: [id number] Date of Study: 01/21/2021 Ordering Physician: MISHEL CAMARGO, Referring Physician: MISHEL CAMARGO, Tech: Julia Wheatleyjaradleeroy [facility] APPROVED REPORT EXAM: Two-dimensional and M-mode echocardiogram with Doppler and color Doppler. Other Information Quality : FairHR: 116bpm INDICATION Acute MO 2D DIMENSIONS Left Atrium(2D)4.0 (1.6-4.0cm)IVSd1.3 (0.7-1.1cm) Aortic Root(2D)3.8 (2.0-3.7cm)LVDd4.3 (3.9-5.9cm) LVOT Diameter2.1 (1.8-2.4cm)PWd1.2 (0.7-1.1cm) LVDs2.7 (2.5-4.0cm)FS (%) 37.3 % SV55.8 mlLVEF(%)67.6 (>50%) Aortic Valve AoV Peak Derick.174.5cm/sAoV VTI11.2cm AO Peak GR.12.2mmHgLVOT VTI 9.24cm AO Mean GR.6mmHg Mitral Valve MV E Vmreelcb75.3cm/sMV DECEL MPYX93iw MV A Tgwqlobq90.3cm/sE/A Ratio0.8 TDI Medial E' P. V4.57cm/sE/Medial E'8.4 Tricuspid Valve TR P. Gdbrltyy716lo/sRAP UPFVXGNI20tcCp TR Peak Gr.10reGsQFAN43lnDj LEFT VENTRICLE The left ventricle is normal size. There is mild to moderate concentric left ventricular hypertrophy. The left ventricular systolic function is normal. The ejection fraction is 55%. Transmitral Doppler flow pattern is Grade I-abnormal relaxation pattern. AORTIC VALVE The aortic valve is not well visualized. Doppler and Color Flow revealed no significant aortic regurg itation. There is no significant aortic valvular stenosis. Calculated aortic valve area is 2.82 cm2 w ith maximum pressure gradient of 12 mmHg and mean pressure gradient of 6 mmHg. MITRAL VALVE The mitral valve is not well visualized. There is no evidence of mitral valve prolapse. There is no m itral valve stenosis. TRICUSPID VALVE The tricuspid valve is not well visualized. Doppler and Color Flow revealed trace tricuspid regurgita tion There is no tricuspid valve stenosis. PULMONIC VALVE The pulmonic valve is not well visualized. GREAT VESSELS The aortic root is mildly enlarged measuring 3.82 cm. The IVC was not visualized. PERICARDIAL EFFUSION There is no evidence of significant pericardial effusion. Critical Notification Critical Value: No <Conclusion> Tecchnically limited and very difficult study. The left ventricular systolic function is normal. The ejection fraction is 55%. Endocardium poorly visualized and hence wall motion abnormalities cannot be excluded. Transmitral Doppler flow pattern is Grade I-abnormal relaxation pattern. Valves not well visualized. There is no evidence of significant pericardial effusion. Signed by : Mishel Camargo, Electronically Approved : 01/22/2021 17:05:38
--- NOTE | 2021-01-22 17:15 | RAD ---
MR#: [id number] Date of Study: 01/22/2021 Ordering Physician: EDGAR CANNON, Referring Physician: EDGAR CANNON, Tech: Stanislaw Wing MBA, RDMS, RVT, RDCS, RTR APPROVED REPORT Patient Location: IN-PATIENT Indications Pulselessness VELOCITY AND DOPPLER WAVEFORM ANALYSIS RIGHT cm/secWaveformSeverity LEFT cm/secWaveform Severity dCFA 50.0MonophasicdCFA Fem Art Prox. 12.0MonophasicFem Art Prox. Fem Art Mid. 15.0MonophasicFem Art Mid. Fem Art Dist. 15.0MonophasicFem Art Dist. Pop Art(Fossa) 15.0MonophasicPop Art(AK) OVENS SUPERVISOR Prox. 10.0MonophasicPTA Prox. OVENS SUPERVISOR Dist. 9.0MonophasicPTA Dist. RYNE Prox. 13.0MonophasicATA Prox. DPA 7MonophasicDPA Findings Grayscale images, color flow Doppler and spectral waveform analysis of right lower extremity showed s ignificantly diminished velocities with monophasic flow distal to the right common femoral artery sug gesting significant flow-limiting stenosis in the right common femoral artery. In lieu of placement of intra-aortic balloon pump via right REDIPPER access, I would recommend reevaluating patient after IABP is removed. 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 Recommend reevaluating patient after IABP is removed. Signed by : Cornelius Camargo, Electronically Approved : 01/22/2021 17:15:21
[2021-01-22] MEDS ORDERED: HYDR25TA PO (19:04)
[2021-01-22] MEDS ORDERED: CLON0.5T4 PO (19:04)
[2021-01-22] MEDS ORDERED: AMLO10TA4 PO (19:04)
[2021-01-22] MEDS ORDERED: ASCO500C9 PO (19:04)
[2021-01-22] MEDS ORDERED: MULT-245 PO (19:04)
[2021-01-22] MEDS ORDERED: BUSP15TA PO (19:04)
[2021-01-22] MEDS: ATORVASTATIN CALCIUM 20 MG TABLET PO SCH ×2 (20:01→20:21)
--- NOTE | 2021-01-22 20:30 | PDOC ---
Provider Note Date of Service: DATE: 01/22/21 TIME: 12:45 pm Provider Note Procedure: Successful removal of intra-aortic balloon pump Complications: None Procedural description: Patient had IABP inserted percutaneously for cardiogenic shock after acute STEMI. He was successfully extubated and weaned off pressors this morning. His IABP was then turned off and he remained hemodynamically stable. Hence a decision was made to remove his IABP. After giving him sedation and prepping his right groin in sterile fashion, the arterial sheath, intra-aortic balloon pump and venous sheaths were removed successfully with achievement of hemostasis by manual compression. He tolerated the procedure well. There were no immediate complications. Justifications for Admission Other Justification MISHEL YOUNGER MD Jan 22, 2021 20:30
[2021-01-23] VITALS (11 sets, daily range): BP systolic 126–178; BP diastolic 85–95
[2021-01-23 01:09] LABS: HEMOGLOBIN A1C 6.1 % (4.8-5.6)
[2021-01-23] MEDS: IV 1/2 NORMAL SALINE 1,000 ML IV SCH ×2 (02:30→15:08)
--- NOTE | 2021-01-23 04:51 | NUR ---
Patient pressed call light at approx 0200 this morning and launched into a verbal tirade about his perceived lack of care. Patient is angry that his right leg is hurting and believes "they messed me up!" Explained multiple times to patient that leg discomfort is not uncommon after cardiac cath and balloon pump insertion. Patient complained repeatedly about not being fed; explained multiple times to patient that it is standard practice to be NPO while intubated and immediately following extubation. Offered to provide food for patient and he refused. Patient complained about having his fingers pinched and cotton balls touched to his eyes when he was not responding the day before. Explained repeatedly to patient that all procedures he described are part of standard neurologic exam. Patient stated he would "like to get his hands on that andria," and that he is filing a complaint. Patient complained that he is not receiving Klonopin as ordered at home, however he refused the Ativan that I offered. Patient demanded transfer to [facility] in [place]. I explained to patient that an ICU bed is not likely available at this time but he may be able to transfer later today if his status is downgraded. Patient stated he was calling his to come get him and take him to [facility] and that he would sign out AMA. Patient refused to have AM labs drawn and again repeated his claim about not eating, however, patient is still refusing food at this time.
[2021-01-23] MEDS: INSULIN LISPRO 300 UNITS/3 ML VIAL. SQ SCH ×3 (08:00→17:00)
[2021-01-23] MEDS: ASCORBIC ACID 500 MG TABLET PO SCH ×2 (08:55→20:13)
[2021-01-23] MEDS: DEXAMETHASONE SOD PHOS 4 MG/ML VIAL IVP SCH (08:55)
[2021-01-23] MEDS: CLOPIDOGREL BISULFATE 75 MG TABLET PO SCH (08:55)
[2021-01-23] MEDS: clonazePAM 0.5 MG TABLET PO PRN (08:55)
[2021-01-23] MEDS: busPIRone 5 MG TABLET. PO SCH ×2 (08:55→20:13)
[2021-01-23] MEDS: ASPIRIN 325 MG TABLET PO SCH (08:55)
[2021-01-23] MEDS: hydrOXYzine 25 MG TABLET PO SCH ×3 (08:55→20:13)
[2021-01-23] MEDS: THIAMINE 100 MG TABLET. PO SCH (08:55)
[2021-01-23] MEDS: FOLIC/VIT B COMP W-C (RENAL) TABLET. PO SCH (08:55)
[2021-01-23] MEDS: FAMOTIDINE 20 MG/2 ML VIAL IVP SCH ×2 (08:55→20:13)
[2021-01-23] MEDS: ZINC SULFATE 220 MG CAPSULE. PO SCH (08:56)
[2021-01-23] MEDS: METOPROLOL TART IMMED RELEASE 25 MG TABLET. PO SCH ×2 (08:58→20:14)
[2021-01-23] MEDS: MULTIVITAMIN with MINERAL TABLET. PO SCH (09:00)
--- NOTE | 2021-01-23 09:01 | PDOC ---
[employer] PROGRESS NOTE Date of Service DOS: DATE: 01/23/21 TIME: 08:55 Chief Complaint Chief Complaint STEMI, right circ 100%, stent placed acute systolic CHF, requiring balloon pump in ICU acute respiratory failure due to CHF and acute MA, on vent, better, will extubate today COVID pos acute Metabolic acidosis Diabetes Hyperkalemia Transaminitis HTN History of epilepsy Generalized anxiety disorder, he was resistant to Pain meds and benzos, difficult to sedate History of Present Illness History of Present Illness OOB, feeling better rigth leg is still numb, but getting stronger, reperfusion ' balloon pump out he is hungry, wanting to shower BP up today, still tachycardia, restart home meds for anxiety and BP Vitals/I&O Vitals/I&O: Vital Signs Date Time Temp Pulse Resp B/P (MAP) Pulse Ox O2 Delivery O2 Flow Rate FiO2 01/23/21 06:00 110 18 148/86 (106) 94 Nasal Cannula 5.0 01/23/21 04:00 99.1 99.1 I & O 01/22/21 01/22/21 01/23/21 15:00 23:00 07:00 Intake Total 360 ml Output Total 500 ml 1930 ml 860 ml Balance -500 ml -1570 ml -860 ml Physical Exam Physical Exam: on vent, writing and gesturing to excellent ability General: Alert, Cooperative, mild distress, Other (intubated) Heart: Regular rate Lungs: Clear Abdomen: Soft Extremities: No edema Skin: No breakdown Labs Labs: Laboratory Tests Test 01/22/21 09:00 01/22/21 16:50 O2 Saturation 96 % (92-99) Arterial Blood pH 7.38 (7.35-7.45) Arterial Blood pCO2 at Patient Temp 38 mmHg (35-46) Arterial Blood pO2 at Patient Temp 81 mmHg (75-108) Arterial Blood HCO3 22 mmol/L (21-28) Arterial Blood Base Excess -3 mmol/L (-3-3) FiO2 40 Urine Collection Type Unknown Urine Color Red Urine Clarity Clear Urine pH 7.5 (<5.0-8.0) Urine Specific [place] 1.020 (1.000-1.030) Urine Protein 100 mg/dL (NEG-TRACE) Urine Glucose (UA) Negative mg/dL (NEG) Urine Ketones (Stick) Negative mg/dL (NEG) Urine Blood Large (NEG) Urine Nitrite Negative (NEG) Urine Bilirubin Negative (NEG) Urine Urobilinogen Dipstick 1.0 mg/dL (0.2 mg/dL) Urine Leukocyte Esterase Small (NEG) Urine RBC 6-10 /HPF (0-2) Urine WBC 0 /HPF (0-4) Urine Squamous Epithelial Cells Few /LPF Urine Transitional Epithelial Cells Few /LPF Urine Bacteria 0 /HPF (0-FEW) Urine Granular Casts Moderate /HPF Assessment and Plan Assessmemt and Plan Problems Medical Problems: (1) STEMI (ST elevation myocardial infarction) Status: Acute Comment Review of Relevant I have reviewed the following items salvador (where applicable) has been applied. Medications: Current Medications Medications (Trade) Dose Ordered Sig/Quinton Route PRN Reason Start Time Stop Time Status Last Admin Dose Admin Thiamine HCl 100 mg/Dextrose 51 ml @ 102 mls/hr 1X ONCE IV 01/22/21 12:00 01/22/21 12:29 DC 01/22/21 12:00 Dexamethasone Sodium Phosphate (Decadron) 6 mg DAILY IVP 01/22/21 13:00 01/22/21 13:00 Zinc Sulfate (Orazinc) 220 mg DAILY PO 01/22/21 13:00 01/22/21 13:00 Fentanyl Citrate (Fentanyl 2ml Vial) 50 mcg PRN Q4HRS PRN IVP PAIN 01/22/21 16:45 01/22/21 16:47 Justifications for Admission Other Justification ADRY SEGOVIA MD Jan 23, 2021 09:01
--- NOTE | 2021-01-23 09:06 | PDOC ---
PULMONARY PROGRESS NOTES DATE: 01/23/21 TIME: 09:06 Subjective Patient extubated 01/22 Sitting up in the chair Tested positive for SARS-CoV-2 Vitals Vital Signs Date Time Temp Pulse Resp B/P (MAP) Pulse Ox O2 Delivery O2 Flow Rate FiO2 01/23/21 08:58 110 148/86 01/23/21 06:00 18 94 Nasal Cannula 5.0 01/23/21 04:00 99.1 99.1 ROS: No Nausea, No Chest Pain, No Abdominal Pain, No Increase Cough General: Alert Lungs: Clear Cardiovascular: S1, S2 Abdomen: Soft Neuro Exam: Alert Extremities: No Edema Skin: Warm Labs Laboratory Tests Test 01/21/21 09:25 01/21/21 11:37 01/21/21 11:50 01/21/21 13:30 White Blood Count 15.5 x10^3/uL (4.0-11.0) Red Blood Count 4.66 x10^6/uL (4.30-5.70) Hemoglobin 15.1 g/dL (13.0-17.5) Hematocrit 47.8 % (39.0-53.0) Mean Corpuscular Volume 103 fL (79-100) Mean Corpuscular Hemoglobin 32 pg (25-35) Mean Corpuscular Hemoglobin Concent 32 g/dL (31-37) Red Cell Distribution Width 14.6 % (11.5-14.5) Platelet Count 304 x10^3/uL (140-400) Neutrophils (%) (Auto) 31 % (31-73) Lymphocytes (%) (Auto) 62 % (24-48) Monocytes (%) (Auto) 5 % (0-9) Eosinophils (%) (Auto) 1 % (0-3) Basophils (%) (Auto) 1 % (0-3) Neutrophils # (Auto) 4.8 x10^3/uL (1.8-7.7) Lymphocytes # (Auto) 9.6 x10^3/uL (1.0-4.8) Monocytes # (Auto) 0.7 x10^3/uL (0.0-1.1) Eosinophils # (Auto) 0.2 x10^3/uL (0.0-0.7) Basophils # (Auto) 0.2 x10^3/uL (0.0-0.2) Segmented Neutrophils % 18 % (35-66) Lymphocytes % 81 % (24-48) Monocytes % 1 % (0-10) Smudge Cells Present Platelet Estimate Adequate (ADEQUATE) Sodium Level 133 mmol/L (136-145) Potassium Level 6.2 mmol/L (3.5-5.1) Chloride Level 96 mmol/L (98-107) Carbon Dioxide Level 13 mmol/L (21-32) Anion Gap 24 (6-14) Blood Urea Nitrogen 13 mg/dL (8-26) Creatinine 1.8 mg/dL (0.7-1.3) Estimated GFR (Cockcroft-Gault) 40.5 BUN/Creatinine Ratio 7 (6-20) Glucose Level 428 mg/dL (70-99) Calcium Level 7.9 mg/dL (8.5-10.1) Magnesium Level 3.2 mg/dL (1.8-2.4) Total Bilirubin 0.4 mg/dL (0.2-1.0) Aspartate Amino Transf (AST/SGOT) 194 U/L (15-37) Alanine Aminotransferase (ALT/SGPT) 203 U/L (16-63) Alkaline Phosphatase 128 U/L (46-116) Troponin I Quantitative 5.019 ng/mL (0.000-0.055) RL-Dts-G-Type Natriuretic Peptide 50 pg/mL (0-124) Total Protein 6.6 g/dL (6.4-8.2) Albumin 3.4 g/dL (3.4-5.0) Albumin/Globulin Ratio 1.1 (1.0-1.7) Lipase 135 U/L (73-393) O2 Saturation 98 % (92-99) Arterial Blood pH 7.05 (7.35-7.45) Arterial Blood pCO2 at Patient Temp 36 mmHg (35-46) Arterial Blood pO2 at Patient Temp 148 mmHg (75-108) Arterial Blood HCO3 10 mmol/L (21-28) Arterial Blood Base Excess -20 mmol/L (-3-3) FiO2 100 SARS-CoV-2 RNA (DIMA) Positive (Negative) SARS-CoV-2 Antigen (Rapid) Negative (NEGATIVE) Test 01/21/21 17:15 01/21/21 17:35 01/21/21 21:30 01/22/21 05:15 O2 Saturation 99 % (92-99) Arterial Blood pH 7.21 (7.35-7.45) Arterial Blood pCO2 at Patient Temp 34 mmHg (35-46) Arterial Blood pO2 at Patient Temp 386 mmHg (75-108) Arterial Blood HCO3 13 mmol/L (21-28) Arterial Blood Base Excess -13 mmol/L (-3-3) FiO2 100 Urine Ketones (Stick) Negative mg/dL (NEG) Urine Opiates Screen Neg (NEG) Urine Methadone Screen Neg (NEG) Urine Barbiturates Neg (NEG) Urine Phencyclidine Screen Neg (NEG) Urine Amphetamine/Methamphetamine Neg (NEG) Urine Benzodiazepines Screen Pos (NEG) Urine Cocaine Screen Neg (NEG) Urine Cannabinoids Screen Neg (NEG) Urine Ethyl Alcohol Neg (NEG) White Blood Count 30.5 x10^3/uL (4.0-11.0) 23.9 x10^3/uL (4.0-11.0) Red Blood Count 4.82 x10^6/uL (4.30-5.70) 4.70 x10^6/uL (4.30-5.70) Hemoglobin 15.3 g/dL (13.0-17.5) 14.7 g/dL (13.0-17.5) Hematocrit 43.6 % (39.0-53.0) 42.9 % (39.0-53.0) Mean Corpuscular Volume 91 fL (79-100) 91 fL (79-100) Mean Corpuscular Hemoglobin 32 pg (25-35) 31 pg (25-35) Mean Corpuscular Hemoglobin Concent 35 g/dL (31-37) 34 g/dL (31-37) Red Cell Distribution Width 13.6 % (11.5-14.5) 13.8 % (11.5-14.5) Platelet Count 290 x10^3/uL (140-400) 250 x10^3/uL (140-400) Neutrophils (%) (Auto) 88 % (31-73) Lymphocytes (%) (Auto) 5 % (24-48) Monocytes (%) (Auto) 8 % (0-9) Eosinophils (%) (Auto) 0 % (0-3) Basophils (%) (Auto) 0 % (0-3) Neutrophils # (Auto) 26.8 x10^3/uL (1.8-7.7) Lymphocytes # (Auto) 1.4 x10^3/uL (1.0-4.8) Monocytes # (Auto) 2.3 x10^3/uL (0.0-1.1) Eosinophils # (Auto) 0.0 x10^3/uL (0.0-0.7) Basophils # (Auto) 0.0 x10^3/uL (0.0-0.2) Segmented Neutrophils % 86 % (35-66) Band Neutrophils % 5 % (0-9) Lymphocytes % 3 % (24-48) Monocytes % 6 % (0-10) Toxic Granulation Slight Platelet Estimate Adequate (ADEQUATE) Heparin Anti-Xa Act, Unfractionated 0.28 IU/mL (0.30-0.70) 0.45 IU/mL (0.30-0.70) Magnesium Level 2.6 mg/dL (1.8-2.4) Triglycerides Level 189 mg/dL (0-150) 206 mg/dL (0-150) Sodium Level 135 mmol/L (136-145) Potassium Level 4.2 mmol/L (3.5-5.1) Chloride Level 102 mmol/L (98-107) Carbon Dioxide Level 25 mmol/L (21-32) Anion Gap 8 (6-14) Blood Urea Nitrogen 19 mg/dL (8-26) Creatinine 1.4 mg/dL (0.7-1.3) Estimated GFR (Cockcroft-Gault) 54.1 Glucose Level 109 mg/dL (70-99) Hemoglobin A1c 6.1 % (4.8-5.6) Calcium Level 7.3 mg/dL (8.5-10.1) Total Bilirubin 0.4 mg/dL (0.2-1.0) Direct Bilirubin 0.2 mg/dL (0.0-0.2) Aspartate Amino Transf (AST/SGOT) 426 U/L (15-37) Alanine Aminotransferase (ALT/SGPT) 254 U/L (16-63) Alkaline Phosphatase 69 U/L (46-116) Total Protein 5.9 g/dL (6.4-8.2) Albumin 3.0 g/dL (3.4-5.0) Cholesterol Level 167 mg/dL (0-200) LDL Cholesterol, Calculated 100 mg/dL (0-100) VLDL Cholesterol, Calculated 41 mg/dL (0-40) Non-HDL Cholesterol Calculated 141 mg/dL (0-129) HDL Cholesterol 26 mg/dL (40-60) Cholesterol/HDL Ratio 6.4 Test 01/22/21 09:00 01/22/21 16:50 O2 Saturation 96 % (92-99) Arterial Blood pH 7.38 (7.35-7.45) Arterial Blood pCO2 at Patient Temp 38 mmHg (35-46) Arterial Blood pO2 at Patient Temp 81 mmHg (75-108) Arterial Blood HCO3 22 mmol/L (21-28) Arterial Blood Base Excess -3 mmol/L (-3-3) FiO2 40 Urine Collection Type Unknown Urine Color Red Urine Clarity Clear Urine pH 7.5 (<5.0-8.0) Urine Specific [place] 1.020 (1.000-1.030) Urine Protein 100 mg/dL (NEG-TRACE) Urine Glucose (UA) Negative mg/dL (NEG) Urine Ketones (Stick) Negative mg/dL (NEG) Urine Blood Large (NEG) Urine Nitrite Negative (NEG) Urine Bilirubin Negative (NEG) Urine Urobilinogen Dipstick 1.0 mg/dL (0.2 mg/dL) Urine Leukocyte Esterase Small (NEG) Urine RBC 6-10 /HPF (0-2) Urine WBC 0 /HPF (0-4) Urine Squamous Epithelial Cells Few /LPF Urine Transitional Epithelial Cells Few /LPF Urine Bacteria 0 /HPF (0-FEW) Urine Granular Casts Moderate /HPF Laboratory Tests Test 01/22/21 16:50 Urine Collection Type Unknown Urine Color Red Urine Clarity Clear Urine pH 7.5 (<5.0-8.0) Urine Specific [place] 1.020 (1.000-1.030) Urine Protein 100 mg/dL (NEG-TRACE) Urine Glucose (UA) Negative mg/dL (NEG) Urine Ketones (Stick) Negative mg/dL (NEG) Urine Blood Large (NEG) Urine Nitrite Negative (NEG) Urine Bilirubin Negative (NEG) Urine Urobilinogen Dipstick 1.0 mg/dL (0.2 mg/dL) Urine Leukocyte Esterase Small (NEG) Urine RBC 6-10 /HPF (0-2) Urine WBC 0 /HPF (0-4) Urine Squamous Epithelial Cells Few /LPF Urine Transitional Epithelial Cells Few /LPF Urine Bacteria 0 /HPF (0-FEW) Urine Granular Casts Moderate /HPF Medications Active Scripts Medications Dose Route/Sig Max Daily Dose Days Date Category Hydroxyzine Hcl 25 Mg Tablet 1 Tab PO TID 01/22/21 Reported Buspirone Hcl 15 Mg Tablet 1 Tab PO BID 01/22/21 Reported Clonazepam 0.5 Mg Tablet 0.5 Mg PO BID PRN 01/22/21 Reported Vitamin C (Ascorbic Acid) 500 Mg Capsule 1 Cap PO BID 28 01/22/21 Reported Multi Vitamin Daily (Multivitamin) 1 Each Tablet 1 Tab PO DAILY 30 01/22/21 Reported Norvasc (Amlodipine Besylate) 10 Mg Tablet 10 Mg PO DAILY 01/22/21 Reported Impression . IMPRESSION: 1. Acute hypoxemic respiratory failure secondary to [id number] cardiopulmonary arrest. 2. [id number] cardiopulmonary arrest secondary to acute myocardial infarction. 3. Posterior wall myocardial infarction. 4. Status post emergent cardiac catheterization with successful percutaneous coronary intervention and drug-eluting stent to the left circumflex artery. 5. Status post insertion of intraaortic balloon pump for hemodynamic support. 6. Leukocytosis, suspect reactive. 7. History of epilepsy. 8. Cardiogenic shock. 9. SARS-CoV-2 positivity 10. Right lower extremity arterial insufficiency, per cardiology Plan . Updated 01/23 Continue current support Oxygen supplementation Follow cardiology input Steroids for Covid Oxygen supplementation, and will require 6-minute walk prior to discharge updated 01/22 Sometime yesterday afternoon patient started moving all extremities, hypothermic protocol was discontinued Patient currently is awake alert following commands Did well with pressure support trial We will proceed with extubation Intra-aortic balloon pump per cardiology ABG noted Leukocytosis probably related to stress We will proceed with extubation Discussed with RN and RT 01/21 PLAN: 1. We will continue current support with a pressure control ventilation, repeat arterial blood gas. 2. Pressors to maintain mean arterial pressure above 60. The patient currently on norepinephrine and dopamine. 3. Monitor for any further arrhythmias. 4. Anticoagulation per Cardiology. 5. Repeat arterial blood gas and make adjustments to minute ventilations as necessary. 6. We will look into hypothermic protocol. The above was discussed with the at the bedside, I informed her that the next 24-48 hours will be critical in deciding whether he has suffered any anoxic brain injury. At this time, it is too early to make any judgment or calls. GUILLE FELIX MD Jan 23, 2021 09:06
[2021-01-23 11:09] LABS: ALBUMIN 3.3 g/dL (3.4-5.0); ALBUMIN/GLOBULIN RATIO 0.8 (1.0-1.7); CALCIUM 8.9 mg/dL (8.5-10.1); CREATININE 1.1 mg/dL (0.7-1.3); GFR 71.4; POTASSIUM 4.3 mmol/L (3.5-5.1); TOTAL BILIRUBIN 0.7 mg/dL (0.2-1.0); TOTAL PROTEIN 7.5 g/dL (6.4-8.2)
--- NOTE | 2021-01-23 11:22 | PDOC ---
SURAJ MULLINS [employer] 01/23/21 1122: CARDIO Progress Notes Date and Time Date of Service 01/23/21 Time of Evaluation 1115 Subjective Subjective: No Chest Pain, No shortness of breath, No Palpitations, Other (right LE tingling, pain) Vitals Vitals Vital Signs Date Time Temp Pulse Resp B/P (MAP) Pulse Ox O2 Delivery O2 Flow Rate FiO2 01/23/21 08:58 110 148/86 01/23/21 08:00 Room Air 01/23/21 06:00 18 94 5.0 01/23/21 04:00 99.1 99.1 Weight Weight [ ] Input and Output Intake and Output Intake and Output 01/23/21 07:00 Intake Total 360 ml Output Total 3290 ml Balance -2930 ml Intake Oral 360 ml Output Urine Total 3240 ml Gastric Drainage Total 50 ml Laboratory Labs Laboratory Tests Test 01/22/21 16:50 Urine Collection Type Unknown Urine Color Red Urine Clarity Clear Urine pH 7.5 (<5.0-8.0) Urine Specific [place] 1.020 (1.000-1.030) Urine Protein 100 mg/dL (NEG-TRACE) Urine Glucose (UA) Negative mg/dL (NEG) Urine Ketones (Stick) Negative mg/dL (NEG) Urine Blood Large (NEG) Urine Nitrite Negative (NEG) Urine Bilirubin Negative (NEG) Urine Urobilinogen Dipstick 1.0 mg/dL (0.2 mg/dL) Urine Leukocyte Esterase Small (NEG) Urine RBC 6-10 /HPF (0-2) Urine WBC 0 /HPF (0-4) Urine Squamous Epithelial Cells Few /LPF Urine Transitional Epithelial Cells Few /LPF Urine Bacteria 0 /HPF (0-FEW) Urine Granular Casts Moderate /HPF Physical Exam HEENT: Neck Supple W Full Motion Chest: Symmetric LUNGS: Other (CTA ) Heart: RRR (SR ) Abdomen: Soft N/T Extremities: Other (right foot warm. DP pulses intact. Rook boot ) Neurology: alert, oriented, follow commands Plan Plan 1. Acute posterior wall STEMI: s/p PCI/PEDRO to LCX. 2. Ventricular fibrillation and cardiac arrest - ischemic etiology, none further 3. Cardiogenic shock, acute diastolic heart failure: . Echo with preserved LV systolic function. s/p IABP removal. appears compensated 4. Mitral Regurgitation 5. Acute respiratory failure s/p extubation 6. Metabolic acidosis, hyperkalemia: improved 7. Transaminitis: most probably secondary to cardiogenic shock. H/p fatty liver 8. RLE arterial insufficiency: RLE arterial duple noted with significant flow- limiting stenosis in right common femoral artery with IABP in place. 9. COVID-19 Recommendations Secondary prevention including DAPT with ASA/Plavix. Continue BB No stating with ^ LFTs Lasix PRN. Will plan for aortogram with runoff tomorrow NPO p MN Justicifation of Admission Dx: Justifications for Admission: Justification of Admission Dx: N/A MISHEL YOUNGER MD 01/23/21 2013: CARDIO Progress Notes Assessment Assessment Patient seen and examined. Agree with CUSTOMER CARE ASSISTANT's assessment and plan. Acute posterior STEMI s/p PCI/PEDRO to LCX, stable Cardiac arrest from ischemic VT/VF without any further episodes Ac resp failure secondary to above s/p extubation - Covid positive pulm following Cardiogenic shock improved, off pressors, IABP removed Absent pulses with poor distal flow on art duplex RLE - improved pulses post IABP removal Plan for aortogram with runoff tomorrow SURAJ MULLINS APRN Jan 23, 2021 11:22 MISHEL YOUNGER MD Jan 23, 2021 20:13
--- NOTE | 2021-01-23 13:46 | PDOC ---
PROGRESS NOTES Date of Service DATE: 01/23/21 TIME: 13:44 Assessment Problems Medical Problems: (1) STEMI (ST elevation myocardial infarction) Status: Acute Cardiac arrest, anoxic encephalopathy, but fully awake History of epilepsy, no recent seizures Plan Given improvement, no additional neurological testing needed. Subjective No complaints Objective Vital Signs Date Time Temp Pulse Resp B/P (MAP) Pulse Ox O2 Delivery O2 Flow Rate FiO2 01/23/21 12:42 98.7 92 18 151/87 (108) 92 Nasal Cannula 2.0 98.7 Intake and Output 01/23/21 07:00 Intake Total 360 ml Output Total 3290 ml Balance -2930 ml Intake Oral 360 ml Output Urine Total 3240 ml Gastric Drainage Total 50 ml PHYSICAL EXAM Alert. Extubated, oriented to person, place, time. PERRL. EOMI. CN: no focal findings. Muscle tone: normal. Muscle strength: 5/5 DTR: 2+ Plantar reflex: Flexor Gait: not examined in bed. Sensory exam: no abnormal findings. No cerebellar signs elicited. Review of Relevant I have reviewed the following items salvador (where applicable) has been applied. Labs Laboratory Tests Test 01/21/21 17:15 01/21/21 17:35 01/21/21 21:30 01/22/21 05:15 O2 Saturation 99 % (92-99) Arterial Blood pH 7.21 (7.35-7.45) Arterial Blood pCO2 at Patient Temp 34 mmHg (35-46) Arterial Blood pO2 at Patient Temp 386 mmHg (75-108) Arterial Blood HCO3 13 mmol/L (21-28) Arterial Blood Base Excess -13 mmol/L (-3-3) FiO2 100 Urine Ketones (Stick) Negative mg/dL (NEG) Urine Opiates Screen Neg (NEG) Urine Methadone Screen Neg (NEG) Urine Barbiturates Neg (NEG) Urine Phencyclidine Screen Neg (NEG) Urine Amphetamine/Methamphetamine Neg (NEG) Urine Benzodiazepines Screen Pos (NEG) Urine Cocaine Screen Neg (NEG) Urine Cannabinoids Screen Neg (NEG) Urine Ethyl Alcohol Neg (NEG) White Blood Count 30.5 x10^3/uL (4.0-11.0) 23.9 x10^3/uL (4.0-11.0) Red Blood Count 4.82 x10^6/uL (4.30-5.70) 4.70 x10^6/uL (4.30-5.70) Hemoglobin 15.3 g/dL (13.0-17.5) 14.7 g/dL (13.0-17.5) Hematocrit 43.6 % (39.0-53.0) 42.9 % (39.0-53.0) Mean Corpuscular Volume 91 fL (79-100) 91 fL (79-100) Mean Corpuscular Hemoglobin 32 pg (25-35) 31 pg (25-35) Mean Corpuscular Hemoglobin Concent 35 g/dL (31-37) 34 g/dL (31-37) Red Cell Distribution Width 13.6 % (11.5-14.5) 13.8 % (11.5-14.5) Platelet Count 290 x10^3/uL (140-400) 250 x10^3/uL (140-400) Neutrophils (%) (Auto) 88 % (31-73) Lymphocytes (%) (Auto) 5 % (24-48) Monocytes (%) (Auto) 8 % (0-9) Eosinophils (%) (Auto) 0 % (0-3) Basophils (%) (Auto) 0 % (0-3) Neutrophils # (Auto) 26.8 x10^3/uL (1.8-7.7) Lymphocytes # (Auto) 1.4 x10^3/uL (1.0-4.8) Monocytes # (Auto) 2.3 x10^3/uL (0.0-1.1) Eosinophils # (Auto) 0.0 x10^3/uL (0.0-0.7) Basophils # (Auto) 0.0 x10^3/uL (0.0-0.2) Segmented Neutrophils % 86 % (35-66) Band Neutrophils % 5 % (0-9) Lymphocytes % 3 % (24-48) Monocytes % 6 % (0-10) Toxic Granulation Slight Platelet Estimate Adequate (ADEQUATE) Heparin Anti-Xa Act, Unfractionated 0.28 IU/mL (0.30-0.70) 0.45 IU/mL (0.30-0.70) Magnesium Level 2.6 mg/dL (1.8-2.4) Triglycerides Level 189 mg/dL (0-150) 206 mg/dL (0-150) Sodium Level 135 mmol/L (136-145) Potassium Level 4.2 mmol/L (3.5-5.1) Chloride Level 102 mmol/L (98-107) Carbon Dioxide Level 25 mmol/L (21-32) Anion Gap 8 (6-14) Blood Urea Nitrogen 19 mg/dL (8-26) Creatinine 1.4 mg/dL (0.7-1.3) Estimated GFR (Cockcroft-Gault) 54.1 Glucose Level 109 mg/dL (70-99) Hemoglobin A1c 6.1 % (4.8-5.6) Calcium Level 7.3 mg/dL (8.5-10.1) Total Bilirubin 0.4 mg/dL (0.2-1.0) Direct Bilirubin 0.2 mg/dL (0.0-0.2) Aspartate Amino Transf (AST/SGOT) 426 U/L (15-37) Alanine Aminotransferase (ALT/SGPT) 254 U/L (16-63) Alkaline Phosphatase 69 U/L (46-116) Total Protein 5.9 g/dL (6.4-8.2) Albumin 3.0 g/dL (3.4-5.0) Cholesterol Level 167 mg/dL (0-200) LDL Cholesterol, Calculated 100 mg/dL (0-100) VLDL Cholesterol, Calculated 41 mg/dL (0-40) Non-HDL Cholesterol Calculated 141 mg/dL (0-129) HDL Cholesterol 26 mg/dL (40-60) Cholesterol/HDL Ratio 6.4 Test 01/22/21 09:00 01/22/21 16:50 01/23/21 10:25 O2 Saturation 96 % (92-99) Arterial Blood pH 7.38 (7.35-7.45) Arterial Blood pCO2 at Patient Temp 38 mmHg (35-46) Arterial Blood pO2 at Patient Temp 81 mmHg (75-108) Arterial Blood HCO3 22 mmol/L (21-28) Arterial Blood Base Excess -3 mmol/L (-3-3) FiO2 40 Urine Collection Type Unknown Urine Color Red Urine Clarity Clear Urine pH 7.5 (<5.0-8.0) Urine Specific Hallock 1.020 (1.000-1.030) Urine Protein 100 mg/dL (NEG-TRACE) Urine Glucose (UA) Negative mg/dL (NEG) Urine Ketones (Stick) Negative mg/dL (NEG) Urine Blood Large (NEG) Urine Nitrite Negative (NEG) Urine Bilirubin Negative (NEG) Urine Urobilinogen Dipstick 1.0 mg/dL (0.2 mg/dL) Urine Leukocyte Esterase Small (NEG) Urine RBC 6-10 /HPF (0-2) Urine WBC 0 /HPF (0-4) Urine Squamous Epithelial Cells Few /LPF Urine Transitional Epithelial Cells Few /LPF Urine Bacteria 0 /HPF (0-FEW) Urine Granular Casts Moderate /HPF Sodium Level 133 mmol/L (136-145) Potassium Level 4.3 mmol/L (3.5-5.1) Chloride Level 101 mmol/L (98-107) Carbon Dioxide Level 22 mmol/L (21-32) Anion Gap 10 (6-14) Blood Urea Nitrogen 14 mg/dL (8-26) Creatinine 1.1 mg/dL (0.7-1.3) Estimated GFR (Cockcroft-Gault) 71.4 BUN/Creatinine Ratio 13 (6-20) Glucose Level 134 mg/dL (70-99) Calcium Level 8.9 mg/dL (8.5-10.1) Total Bilirubin 0.7 mg/dL (0.2-1.0) Aspartate Amino Transf (AST/SGOT) 676 U/L (15-37) Alanine Aminotransferase (ALT/SGPT) 271 U/L (16-63) Alkaline Phosphatase 90 U/L (46-116) Total Protein 7.5 g/dL (6.4-8.2) Albumin 3.3 g/dL (3.4-5.0) Albumin/Globulin Ratio 0.8 (1.0-1.7) Laboratory Tests Test 01/22/21 16:50 01/23/21 10:25 Urine Collection Type Unknown Urine Color Red Urine Clarity Clear Urine pH 7.5 (<5.0-8.0) Urine Specific Hallock 1.020 (1.000-1.030) Urine Protein 100 mg/dL (NEG-TRACE) Urine Glucose (UA) Negative mg/dL (NEG) Urine Ketones (Stick) Negative mg/dL (NEG) Urine Blood Large (NEG) Urine Nitrite Negative (NEG) Urine Bilirubin Negative (NEG) Urine Urobilinogen Dipstick 1.0 mg/dL (0.2 mg/dL) Urine Leukocyte Esterase Small (NEG) Urine RBC 6-10 /HPF (0-2) Urine WBC 0 /HPF (0-4) Urine Squamous Epithelial Cells Few /LPF Urine Transitional Epithelial Cells Few /LPF Urine Bacteria 0 /HPF (0-FEW) Urine Granular Casts Moderate /HPF Sodium Level 133 mmol/L (136-145) Potassium Level 4.3 mmol/L (3.5-5.1) Chloride Level 101 mmol/L (98-107) Carbon Dioxide Level 22 mmol/L (21-32) Anion Gap 10 (6-14) Blood Urea Nitrogen 14 mg/dL (8-26) Creatinine 1.1 mg/dL (0.7-1.3) Estimated GFR (Cockcroft-Gault) 71.4 BUN/Creatinine Ratio 13 (6-20) Glucose Level 134 mg/dL (70-99) Calcium Level 8.9 mg/dL (8.5-10.1) Total Bilirubin 0.7 mg/dL (0.2-1.0) Aspartate Amino Transf (AST/SGOT) 676 U/L (15-37) Alanine Aminotransferase (ALT/SGPT) 271 U/L (16-63) Alkaline Phosphatase 90 U/L (46-116) Total Protein 7.5 g/dL (6.4-8.2) Albumin 3.3 g/dL (3.4-5.0) Albumin/Globulin Ratio 0.8 (1.0-1.7) Medications Current Medications Heparin Sodium (Porcine) (Heparin Sodium) 10,000 unit STK-MED ONCE .ROUTE ; Start 01/21/21 at 09:18; Stop 01/21/21 at 09:18; Status DC Midazolam HCl (Versed) 5 mg 1X ONCE NS Last administered on 01/21/21at 08:00; Start 01/21/21 at 09:30; Stop 01/21/21 at 09:52; Status DC Epinephrine HCl (Adrenalin) 1 mg STK-MED ONCE .ROUTE ; Start 01/21/21 at 09:43; Stop 01/21/21 at 09:44; Status DC Epinephrine HCl (EPINEPHrine SYRINGE) 1 mg STK-MED ONCE .ROUTE ; Start 01/21/21 at 09:44; Stop 01/21/21 at 09:44; Status DC Dopamine HCl/ Dextrose 250 ml @ As Directed STK-MED ONCE IV ; Start 01/21/21 at 09:46; Stop 01/21/21 at 09:47; Status DC Bivalirudin (Angiomax) 250 mg STK-MED ONCE IV ; Start 01/21/21 at 09:53; Stop 01/21/21 at 09:53; Status DC Nitroglycerin (Nitroglycerin) 200 mcg STK-MED ONCE .ROUTE ; Start 01/21/21 at 10:00; Stop 01/21/21 at 10:00; Status DC Heparin Sodium (Porcine) (Heparin Sodium) 10,000 unit STK-MED ONCE .ROUTE ; Start 01/21/21 at 10:05; Stop 01/21/21 at 10:05; Status DC Nitroglycerin (Nitroglycerin) 200 mcg 1X ONCE IART Last administered on 01/21/21at 09:59; Start 01/21/21 at 10:30; Stop 01/21/21 at 10:32; Status DC Heparin Sodium/ Sodium Chloride (HEPARIN for ARTERIAL LINE FLUSH) 1,000 unit 1X ONCE IART Last administered on 01/21/21at 10:30; Start 01/21/21 at 10:30; Stop 01/21/21 at 10:32; Status DC Heparin Sodium/ Sodium Chloride (HEPARIN for ARTERIAL LINE FLUSH) 1,000 unit 1X ONCE IART Last administered on 01/21/21at 10:30; Start 01/21/21 at 10:30; Stop 01/21/21 at 10:32; Status DC Iodixanol (Visipaque 320) 100 ml 1X ONCE IART Last administered on 01/21/21at 10:30; Start 01/21/21 at 10:30; Stop 01/21/21 at 10:32; Status DC Bivalirudin (Angiomax) 250 mg 1X ONCE IV Last administered on 01/21/21at 09:54; Start 01/21/21 at 10:30; Stop 01/21/21 at 10:32; Status DC Lidocaine HCl (Lidocaine 1% 20ml Vial) 20 ml 1X ONCE INJ Last administered on 01/21/21at 09:49; Start 01/21/21 at 10:30; Stop 01/21/21 at 10:32; Status DC Dopamine HCl/ Dextrose 250 ml @ 14.438 mls/ hr 1X ONCE IV Last administered on 01/21/21at 09:48; Start 01/21/21 at 10:30; Stop 01/21/21 at 14:04; Status DC Epinephrine HCl (EPINEPHrine SYRINGE) 1.5 mg 1X ONCE IV Last administered on 01/21/21at 09:57; Start 01/21/21 at 10:15; Stop 01/21/21 at 10:29; Status DC Clopidogrel Bisulfate (Plavix) 600 mg 1X ONCE PO Last administered on 01/21/21at 10:30; Start 01/21/21 at 10:30; Stop 01/21/21 at 10:32; Status DC Aspirin (Yung Aspirin) 325 mg 1X ONCE PO Last administered on 01/21/21at 10:30; Start 01/21/21 at 10:30; Stop 01/21/21 at 15:44; Status DC Heparin Sodium (Porcine) (Heparin 5,000 Units/1,000ml NS) 5,000 unit 1X ONCE IV Last administered on 01/21/21at 10:05; Start 01/21/21 at 10:30; Stop 01/21/21 at 10:32; Status DC Sodium Chloride 1,000 ml @ 75 mls/hr [id number] IV ; Start 01/21/21 at 10:30 Aspirin (Ecotrin) 325 mg DAILYWBKFT PO ; Start 01/22/21 at 08:00; Stop 01/21/21 at 10:34; Status DC Clopidogrel Bisulfate (Plavix) 75 mg DAILYWBKFT PO ; Start 01/22/21 at 08:00; Stop 01/21/21 at 10:34; Status DC Atorvastatin Calcium (Lipitor) 40 mg QHS PO ; Start 01/21/21 at 21:00; Stop 01/21/21 at 10:34; Status DC Aspirin (Ecotrin) 325 mg DAILYWBKFT PO ; Start 01/22/21 at 08:00; Stop 1 at 17:18; Status DC Clopidogrel Bisulfate (Plavix) 75 mg DAILYWBKFT PO Last administered on 01/23/21at 08:55; Start 01/22/21 at 08:00 Atorvastatin Calcium (Lipitor) 40 mg QHS PO Last administered on 01/21/21at 21:09; Start 01/21/21 at 21:00; Stop 01/23/21 at 08:11; Status DC Etomidate (Amidate) 20 mg STK-MED ONCE IV ; Start 01/21/21 at 11:01; Stop 01/21/21 at 11:01; Status DC Vecuronium Milroy (Norcuron Bolus) 10 mg STK-MED ONCE IV ; Start 01/21/21 at 11:01; Stop 01/21/21 at 11:01; Status DC Succinylcholine Chloride (Anectine) 200 mg STK-MED ONCE .ROUTE ; Start 01/21/21 at 11:03; Stop 01/21/21 at 11:03; Status DC Norepinephrine Bitartrate 8 mg/ Dextrose 258 ml @ 14.9 mls/hr CONT PRN IV PER PROTOCOL Last administered on 01/21/21at 12:00; Start 01/21/21 at 11:15; Stop 01/21/21 at 15:38; Status DC Lorazepam (Ativan Inj) 2 mg STK-MED ONCE .ROUTE ; Start 01/21/21 at 11:20; Stop 01/21/21 at 11:20; Status DC Fentanyl Citrate (Fentanyl 2ml Vial) 25 mcg PRN Q1HR PRN IV SEE COMMENTS; Start 01/21/21 at 11:30; Stop 01/21/21 at 15:44; Status DC Fentanyl Citrate (Fentanyl 2ml Vial) 50 mcg PRN Q1HR PRN IV SEE COMMENTS; Start 01/21/21 at 11:30; Stop 01/21/21 at 15:44; Status DC Morphine Sulfate (Morphine Sulfate) 2 mg PRN Q1HR PRN IV SEE COMMENTS.; Start 01/21/21 at 11:30; Status Cancel Morphine Sulfate (Morphine Sulfate) 4 mg PRN Q1HR PRN IV SEE COMMENTS.; Start 01/21/21 at 11:30; Status Cancel Lorazepam (Ativan Inj) 0.5 mg PRN Q6HRS PRN IVP ANXIETY / AGITATION; Start 01/21/21 at 13:00; Stop 01/21/21 at 15:44; Status DC Lorazepam (Ativan) 1 mg PRN Q6HRS PRN PO ANXIETY / AGITATION (2ND) Last administered on 01/22/21at 16:47; Start 01/21/21 at 13:00 Ondansetron HCl (Zofran) 4 mg PRN Q6HRS PRN IVP NAUSEA/VOMITING; Start 01/21 at 13:00 Al Hydroxide/Mg Hydroxide (Mylanta Plus Xs) 30 ml PRN Q3HRS PRN PO HEARTBURN / GAS; Start 01/21/21 at 13:00 Calcium Carbonate/ Glycine (Tums) 500 mg PRN Q3HRS PRN PO HEARTBURN / GAS; Start 01/21/21 at 13:00 Famotidine (Pepcid Vial) 20 mg BID IVP Last administered on 01/23/21at 08:55; Start 01/21/21 at 21:00 Heparin Sodium (Porcine) (Heparin Sodium) 5,000 unit Q8HRS SQ ; Start 01/21/21 at 14:00; Stop 01/21/21 at 13:40; Status DC Sodium Chloride (Normal Saline Flush) 3 ml QSHIFT PRN IV AFTER MEDS AND BLOOD DRAWS; Start 01/21/21 at 13:00 Morphine Sulfate (Morphine Sulfate) 2 mg PRN Q1HR PRN IV PAIN; Start 01/21/21 at 13:00 Lorazepam (Ativan Inj) 2 mg PRN Q10MIN PRN IVP SEE COMMENTS; Start 01/21/21 at 13:30 Midazolam HCl (Versed) 5 mg STK-MED ONCE .ROUTE ; Start 01/21/21 at 13:33; Stop 01/21/21 at 13:33; Status DC Midazolam HCl (Versed) 5 mg 1X ONCE IV Last administered on 01/21/21at 13:45; Start 01/21/21 at 13:45; Stop 01/21/21 at 13:51; Status DC Heparin Sodium/ Dextrose 250 ml @ 9.24 mls/hr CONT PRN IV PER PROTOCOL Last administered on 01/22/21at 09:54; Start 01/21/21 at 13:45; Stop 01/23/21 at 1 0:02; Status DC Heparin Sodium (Porcine) (Heparin Sodium) 1,950 unit PRN Q6HRS PRN IV FOR UFH LEVEL LESS THAN 0.2; Start 01/21/21 at 13:45; Stop 01/23/21 at 10:02; Status DC Fentanyl Citrate (Fentanyl 2ml Vial) 100 mcg 1X ONCE IV ; Start 01/21/21 at 13:30; Stop 01/21/21 at 15:44; Status DC Midazolam HCl (Versed) 2 mg 1X ONCE IV ; Start 01/21/21 at 13:30; Stop 01/22/21 at 13:03; Status DC Magnesium Sulfate/ Dextrose 100 ml @ 100 mls/hr 1X ONCE IV ; Start 01/21/21 at 13:30; Stop 01/21/21 at 15:44; Status DC Buspirone HCl (Buspar) 30 mg Q8H NG ; Start 01/21/21 at 14:00; Stop 01/21/21 at 15:44; Status DC Acetaminophen (Tylenol) 650 mg Q4HRS NG ; Start 01/21/21 at 14:00; Stop 01/21/21 at 15:44; Status DC Glycerin/ Hypromellose/ Polyethylene (Artificial Tears) 1 drop Q6HRS OU Last administered on 01/21/21at 18:00; Start 01/21/21 at 18:00; Stop 01/22/21 at 13:03; Status DC Glycerin/ Hypromellose/ Polyethylene (Artificial Tears) 1 drop PRN Q15MIN PRN OU DRY EYE; Start 01/21/21 at 13:30; Stop 01/22/21 at 13:03; Status DC Pantoprazole Sodium (PROTONIX VIAL for IV PUSH) 40 mg DAILY IVP ; Start 01/21/21 at 14:00; Stop 01/21/21 at 15:44; Status DC Fentanyl Citrate 30 ml @ 0 mls/hr CONT PRN IV PER PROTOCOL. Last administered on 01/22/21at 09:49; Start 01/21/21 at 13:30; Stop 01/22/21 at 13:03; Status DC Midazolam HCl 100 ml @ 2 mls/hr CONT PRN IV PER PROTOCOL Last administered on 01/22/21at 00:37; Start 01/21/21 at 13:30; Stop 01/22/21 at 13:03; Status DC Vecuronium Milroy (Norcuron Bolus) 8 mg PRN Q1HR PRN IV SHIVERING; Start 01/21/21 at 13:30; Stop 01/21/21 at 15:44; Status DC Sodium Bicarbonate 150 meq/Dextrose 1,150 ml @ 75 mls/hr [id number] IV Last administered on 01/22/21at 05:41; Start 01/21/21 at 14:00; Stop 01/22/21 at 13:46; Status DC Dopamine HCl/ Dextrose 250 ml @ 14.438 mls/ hr CONT PRN IV SEE I/O RECORD Last administered on 01/21/21at 14:00; Start 01/21/21 at 14:00 Aspirin (Yung Aspirin) 325 mg DAILYWBKFT PO Last administered on 01/23/21at 08:55; Start 01/22/21 at 08:00 Norepinephrine Bitartrate 8 mg/ Dextrose 258 ml @ 14.9 mls/hr CONT PRN IV PER PROTOCOL; Start 01/21/21 at 20:45 Thiamine Mononitrate (Vitamin B-1) 100 mg DAILY PO Last administered on 01/23/21at 08:55; Start 01/23/21 at 09:00 Thiamine HCl 100 mg/Dextrose 51 ml @ 102 mls/hr 1X ONCE IV Last administered on 01/22/21at 12:00; Start 01/22/21 at 12:00; Stop 01/22/21 at 12:29; Status DC Vitamin B Complex/ Vitamin C (Jennifer-Thalia) 1 tab DAILY PO Last administered on 01/23/21at 08:55; Start 01/23/21 at 09:00 Insulin Human Lispro (HumaLOG) 0-7 UNITS TIDWMEALS SQ ; Start 01/22/21 at 12:00 Dextrose (Dextrose 50%-Water Syringe) 12.5 gm PRN Q15MIN PRN IV SEE COMMENTS; Start 01/22/21 at 11:45 Dexamethasone Sodium Phosphate (Decadron) 6 mg DAILY IVP Last administered on 01/23/21at 08:55; Start 01/22/21 at 13:00 Zinc Sulfate (Orazinc) 220 mg DAILY PO Last administered on 01/23/21at 08:56; Start 01/22/21 at 13:00 Amiodarone HCl (Cordarone) 300 mg STK-MED ONCE .ROUTE ; Start 01/21/21 at 09:46; Stop 01/22/21 at 16:05; Status DC Epinephrine HCl (EPINEPHrine SYRINGE) 2 mg STK-MED ONCE .ROUTE ; Start 01/21/21 at 09:46; Stop 01/22/21 at 16:05; Status DC Fentanyl Citrate (Fentanyl 2ml Vial) 50 mcg PRN Q4HRS PRN IVP PAIN Last administered on 01/22/21at 16:47; Start 01/22/21 at 16:45 Amlodipine Besylate (Norvasc) 10 mg DAILY PO Last administered on 01/23/21at 08:56; Start 01/23/21 at 09:00 Clonazepam (KlonoPIN) 0.5 mg PRN BID PRN PO ANXIETY / AGITATION Last administered on 01/23/21at 08:55; Start 01/23/21 at 07:45 Hydroxyzine HCl (Atarax) 25 mg TID PO Last administered on 01/23/21at 08:55; Start 01/23/21 at 09:00 Ascorbic Acid (Vitamin C) 500 mg BID PO Last administered on 01/23/21at 08:55; Start 01/23/21 at 09:00 Buspirone HCl (Buspar) 15 mg BID PO Last administered on 01/23/21at 08:55; Start 01/23/21 at 09:00 Multivitamins (Thera M Plus) 1 tab DAILY PO ; Start 01/23/21 at 09:00 Metoprolol Tartrate (Lopressor) 25 mg BID PO Last administered on 01/23/21at 08:58; Start 01/23/21 at 09:00 Active Scripts Active Reported Hydroxyzine Hcl 25 Mg Tablet 1 Tab PO TID Buspirone Hcl 15 Mg Tablet 1 Tab PO BID Clonazepam 0.5 Mg Tablet 0.5 Mg PO BID PRN Vitamin C (Ascorbic Acid) 500 Mg Capsule 1 Cap PO BID 28 Days Multi Vitamin Daily (Multivitamin) 1 Each Tablet 1 Tab PO DAILY 30 Days Norvasc (Amlodipine Besylate) 10 Mg Tablet 10 Mg PO DAILY Vitals/I & O Vital Sign - Last 24 Hours 01/22/21 01/22/21 01/22/21 01/22/21 14:00 15:00 16:00 16:00 Temp 100.4 100.4 Pulse 118 120 122 Resp 18 18 18 B/P (MAP) 128/78 (95) 111/68 (82) 151/87 (108) Pulse Ox 99 99 99 O2 Delivery Nasal Cannula Nasal Cannula Nasal Cannula Nasal Cannula O2 Flow Rate 3.0 3.0 3.0 01/22/21 01/22/21 01/22/21 01/22/21 16:47 17:00 17:17 18:00 Pulse 118 118 Resp 18 18 B/P (MAP) 143/86 (105) 137/70 (92) Pulse Ox 99 99 96 96 O2 Delivery Nasal Cannula Nasal Cannula Nasal Cannula Nasal Cannula O2 Flow Rate 3.0 3.0 3.0 3.0 01/22/21 01/22/21 01/22/21 01/22/21 19:00 20:00 20:00 21:00 Temp 99.0 99.0 Pulse 124 116 122 Resp 18 18 18 B/P (MAP) 146/89 (108) 158/86 (110) 144/87 (106) Pulse Ox 93 95 93 O2 Delivery Nasal Cannula Nasal Cannula Nasal Cannula Nasal Cannula O2 Flow Rate 5.0 5.0 5.0 5.0 01/22/21 01/22/21 01/23/21 01/23/21 22:00 23:00 00:00 00:00 Temp 98.9 98.9 Pulse 113 110 112 Resp 18 18 16 B/P (MAP) 148/90 (109) 153/92 (112) 164/94 (117) Pulse Ox 95 97 95 O2 Delivery Nasal Cannula Nasal Cannula Nasal Cannula Nasal Cannula O2 Flow Rate 5.0 5.0 5.0 5.0 01/23/21 01/23/21 01/23/21 01/23/21 01:00 02:00 03:00 04:00 Temp 99.1 99.1 Pulse 106 130 111 117 Resp 16 20 18 20 B/P (MAP) 162/95 (117) 169/85 (113) 154/89 (110) 142/89 (106) Pulse Ox 97 94 95 O2 Delivery Nasal Cannula Nasal Cannula Nasal Cannula Nasal Cannula O2 Flow Rate 5.0 5.0 5.0 5.0 01/23/21 01/23/21 01/23/21 01/23/21 04:00 05:00 06:00 08:00 Pulse 102 110 Resp 18 18 B/P (MAP) 159/95 (116) 148/86 (106) Pulse Ox 98 94 O2 Delivery Nasal Cannula Nasal Cannula Nasal Cannula Room Air O2 Flow Rate 5.0 5.0 5.0 01/23/21 01/23/21 01/23/21 08:56 08:58 12:42 Temp 98.7 98.7 Pulse 110 110 92 Resp 18 B/P (MAP) 148/86 148/86 151/87 (108) Pulse Ox 92 O2 Delivery Nasal Cannula O2 Flow Rate 2.0 Intake and Output 01/22/21 01/22/21 01/23/21 15:00 23:00 07:00 Intake Total 360 ml Output Total 500 ml 1930 ml 860 ml Balance -500 ml -1570 ml -860 ml Justicifation of Admission Dx: Justifications for Admission: Justification of Admission Dx: N/A SUSANA JOHANSEN MD Jan 23, 2021 13:46
--- NOTE | 2021-01-23 16:56 | NUR ---
SS following up with discharge planning. SS reviewed pt chart and discussed with RN. Pt is currently requiring oxygen at two liters nasal canula. COVID19 positive on PCR. Pt on IV Decadron. SS will continue to follow for discharge planning.
[2021-01-24] VITALS (8 sets, daily range): BP systolic 119–157; BP diastolic 81–98
[2021-01-24 05:58] LABS: HEMATOCRIT 43.3 % (39.0-53.0); HEMOGLOBIN 14.8 g/dL (13.0-17.5); RED BLOOD COUNT 4.74 x10^6/uL (4.30-5.70); RED CELL DISTRIBUTION WIDTH 13.7 % (11.5-14.5); WHITE BLOOD COUNT 28.9 x10^3/uL (4.0-11.0)
[2021-01-24 06:01] LABS: CALCIUM 9.4 mg/dL (8.5-10.1); GFR 79.8; POTASSIUM 4.5 mmol/L (3.5-5.1)
[2021-01-24] MEDS: INSULIN LISPRO 300 UNITS/3 ML VIAL. SQ SCH ×2 (08:00→12:00)
[2021-01-24] MEDS: ZINC SULFATE 220 MG CAPSULE. PO SCH (08:28)
[2021-01-24] MEDS: THIAMINE 100 MG TABLET. PO SCH (08:28)
[2021-01-24] MEDS: hydrOXYzine 25 MG TABLET PO SCH (08:28)
[2021-01-24] MEDS: DEXAMETHASONE SOD PHOS 4 MG/ML VIAL IVP SCH (08:28)
[2021-01-24] MEDS: CLOPIDOGREL BISULFATE 75 MG TABLET PO SCH (08:28)
[2021-01-24] MEDS: ASPIRIN 325 MG TABLET PO SCH (08:28)
[2021-01-24] MEDS: MULTIVITAMIN with MINERAL TABLET. PO SCH (08:28)
[2021-01-24] MEDS: ASCORBIC ACID 500 MG TABLET PO SCH (08:28)
[2021-01-24] MEDS: busPIRone 5 MG TABLET. PO SCH (08:28)
[2021-01-24] MEDS: FOLIC/VIT B COMP W-C (RENAL) TABLET. PO SCH (08:28)
[2021-01-24] MEDS: FAMOTIDINE 20 MG/2 ML VIAL IVP SCH (08:29)
[2021-01-24] MEDS: METOPROLOL TART IMMED RELEASE 25 MG TABLET. PO SCH (08:29)
--- NOTE | 2021-01-24 08:55 | PDOC ---
PULMONARY PROGRESS NOTES DATE: 01/24/21 TIME: 08:54 Subjective Patient not more short of air today Hopeful to be discharged today Patient extubated 01/22 Tested positive for SARS-CoV-2 Vitals Vital Signs Date Time Temp Pulse Resp B/P (MAP) Pulse Ox O2 Delivery O2 Flow Rate FiO2 01/24/21 08:29 96 146/84 01/24/21 04:00 17 Room Air 01/23/21 23:35 98.7 94 98.7 01/23/21 17:00 2.0 ROS: No Nausea, No Chest Pain, No Abdominal Pain, No Increase Cough General: Alert Lungs: Clear Cardiovascular: S1, S2 Abdomen: Soft Neuro Exam: Alert Extremities: No Edema Skin: Warm Labs Laboratory Tests Test 01/22/21 09:00 01/22/21 16:50 01/23/21 10:25 01/24/21 05:25 O2 Saturation 96 % (92-99) Arterial Blood pH 7.38 (7.35-7.45) Arterial Blood pCO2 at Patient Temp 38 mmHg (35-46) Arterial Blood pO2 at Patient Temp 81 mmHg (75-108) Arterial Blood HCO3 22 mmol/L (21-28) Arterial Blood Base Excess -3 mmol/L (-3-3) FiO2 40 Urine Collection Type Unknown Urine Color Red Urine Clarity Clear Urine pH 7.5 (<5.0-8.0) Urine Specific [place] 1.020 (1.000-1.030) Urine Protein 100 mg/dL (NEG-TRACE) Urine Glucose (UA) Negative mg/dL (NEG) Urine Ketones (Stick) Negative mg/dL (NEG) Urine Blood Large (NEG) Urine Nitrite Negative (NEG) Urine Bilirubin Negative (NEG) Urine Urobilinogen Dipstick 1.0 mg/dL (0.2 mg/dL) Urine Leukocyte Esterase Small (NEG) Urine RBC 6-10 /HPF (0-2) Urine WBC 0 /HPF (0-4) Urine Squamous Epithelial Cells Few /LPF Urine Transitional Epithelial Cells Few /LPF Urine Bacteria 0 /HPF (0-FEW) Urine Granular Casts Moderate /HPF Sodium Level 133 mmol/L (136-145) 135 mmol/L (136-145) Potassium Level 4.3 mmol/L (3.5-5.1) 4.5 mmol/L (3.5-5.1) Chloride Level 101 mmol/L (98-107) 101 mmol/L (98-107) Carbon Dioxide Level 22 mmol/L (21-32) 22 mmol/L (21-32) Anion Gap 10 (6-14) 12 (6-14) Blood Urea Nitrogen 14 mg/dL (8-26) 18 mg/dL (8-26) Creatinine 1.1 mg/dL (0.7-1.3) 1.0 mg/dL (0.7-1.3) Estimated GFR (Cockcroft-Gault) 71.4 79.8 BUN/Creatinine Ratio 13 (6-20) Glucose Level 134 mg/dL (70-99) 121 mg/dL (70-99) Calcium Level 8.9 mg/dL (8.5-10.1) 9.4 mg/dL (8.5-10.1) Total Bilirubin 0.7 mg/dL (0.2-1.0) Aspartate Amino Transf (AST/SGOT) 676 U/L (15-37) Alanine Aminotransferase (ALT/SGPT) 271 U/L (16-63) Alkaline Phosphatase 90 U/L (46-116) Total Protein 7.5 g/dL (6.4-8.2) Albumin 3.3 g/dL (3.4-5.0) Albumin/Globulin Ratio 0.8 (1.0-1.7) White Blood Count 28.9 x10^3/uL (4.0-11.0) Red Blood Count 4.74 x10^6/uL (4.30-5.70) Hemoglobin 14.8 g/dL (13.0-17.5) Hematocrit 43.3 % (39.0-53.0) Mean Corpuscular Volume 91 fL (79-100) Mean Corpuscular Hemoglobin 31 pg (25-35) Mean Corpuscular Hemoglobin Concent 34 g/dL (31-37) Red Cell Distribution Width 13.7 % (11.5-14.5) Platelet Count 265 x10^3/uL (140-400) Laboratory Tests Test 01/23/21 10:25 01/24/21 05:25 Sodium Level 133 mmol/L (136-145) 135 mmol/L (136-145) Potassium Level 4.3 mmol/L (3.5-5.1) 4.5 mmol/L (3.5-5.1) Chloride Level 101 mmol/L (98-107) 101 mmol/L (98-107) Carbon Dioxide Level 22 mmol/L (21-32) 22 mmol/L (21-32) Anion Gap 10 (6-14) 12 (6-14) Blood Urea Nitrogen 14 mg/dL (8-26) 18 mg/dL (8-26) Creatinine 1.1 mg/dL (0.7-1.3) 1.0 mg/dL (0.7-1.3) Estimated GFR (Cockcroft-Gault) 71.4 79.8 BUN/Creatinine Ratio 13 (6-20) Glucose Level 134 mg/dL (70-99) 121 mg/dL (70-99) Calcium Level 8.9 mg/dL (8.5-10.1) 9.4 mg/dL (8.5-10.1) Total Bilirubin 0.7 mg/dL (0.2-1.0) Aspartate Amino Transf (AST/SGOT) 676 U/L (15-37) Alanine Aminotransferase (ALT/SGPT) 271 U/L (16-63) Alkaline Phosphatase 90 U/L (46-116) Total Protein 7.5 g/dL (6.4-8.2) Albumin 3.3 g/dL (3.4-5.0) Albumin/Globulin Ratio 0.8 (1.0-1.7) White Blood Count 28.9 x10^3/uL (4.0-11.0) Red Blood Count 4.74 x10^6/uL (4.30-5.70) Hemoglobin 14.8 g/dL (13.0-17.5) Hematocrit 43.3 % (39.0-53.0) Mean Corpuscular Volume 91 fL (79-100) Mean Corpuscular Hemoglobin 31 pg (25-35) Mean Corpuscular Hemoglobin Concent 34 g/dL (31-37) Red Cell Distribution Width 13.7 % (11.5-14.5) Platelet Count 265 x10^3/uL (140-400) Medications Active Scripts Medications Dose Route/Sig Max Daily Dose Days Date Category Hydroxyzine Hcl 25 Mg Tablet 1 Tab PO TID 01/22/21 Reported Buspirone Hcl 15 Mg Tablet 1 Tab PO BID 01/22/21 Reported Clonazepam 0.5 Mg Tablet 0.5 Mg PO BID PRN 01/22/21 Reported Vitamin C (Ascorbic Acid) 500 Mg Capsule 1 Cap PO BID 28 01/22/21 Reported Multi Vitamin Daily (Multivitamin) 1 Each Tablet 1 Tab PO DAILY 30 01/22/21 Reported Norvasc (Amlodipine Besylate) 10 Mg Tablet 10 Mg PO DAILY 01/22/21 Reported Impression . IMPRESSION: 1. Acute hypoxemic respiratory failure secondary to [id number] cardiopulmonary arrest. 2. [id number] cardiopulmonary arrest secondary to acute myocardial infarc tion. 3. Posterior wall myocardial infarction. Status post emergent catheterization 4. Status post emergent cardiac catheterization with successful percutaneous coronary intervention and drug-eluting stent to the left circumflex artery. 5. Status post insertion of intraaortic balloon pump for hemodynamic support., Status post removal 6. Leukocytosis, suspect reactive. 7. History of epilepsy. 8. Cardiogenic shock. 9. SARS-CoV-2 positivity 10. Right lower extremity arterial insufficiency, per cardiology Plan . Updates 01/24 Patient to undergo runoff today 6-minute walk prior to discharge Follow cardiology input Steroids for Covid Possible discharge today, patient to follow-up in the office, I have given him a business card to call the office for follow-up appointment Patient instructed on the importance of discontinue tobacco use updated 01/23 Continue current support Oxygen supplementation Follow cardiology input Steroids for Covid Oxygen supplementation, and will require 6-minute walk prior to discharge updated 01/22 Sometime yesterday afternoon patient started moving all extremities, hypothermic protocol was discontinued Patient currently is awake alert following commands Did well with pressure support trial We will proceed with extubation Intra-aortic balloon pump per cardiology ABG noted Leukocytosis probably related to stress We will proceed with extubation Discussed with RN and RT GUILLE FELIX MD Jan 24, 2021 08:55
--- NOTE | 2021-01-24 09:33 | PDOC ---
PROGRESS NOTES Date of Service DATE: 01/24/21 TIME: 09:32 Assessment Problems Medical Problems: (1) STEMI (ST elevation myocardial infarction) Status: Acute Cardiac arrest, anoxic encephalopathy, recovered History of epilepsy, no recent seizures Plan Given improvement, no additional neurological testing needed. Subjective No complaints Objective Vital Signs Date Time Temp Pulse Resp B/P (MAP) Pulse Ox O2 Delivery O2 Flow Rate FiO2 01/24/21 08:29 96 146/84 01/24/21 04:00 17 Room Air 01/23/21 23:35 98.7 94 98.7 01/23/21 17:00 2.0 Intake and Output 01/24/21 07:00 Intake Total 480 ml Output Total 1450 ml Balance -970 ml Intake Oral 480 ml Output Urine Total 1450 ml PHYSICAL EXAM Alert, oriented to person, place, time. PERRL. EOMI. CN: no focal findings. Muscle tone: normal. Muscle strength: Moves all extremities DTR: Not checked Plantar reflex: Not checked Gait: not examined in bed. Sensory exam: no abnormal findings. No cerebellar signs elicited. Review of Relevant I have reviewed the following items salvador (where applicable) has been applied. Labs Laboratory Tests Test 01/22/21 16:50 01/23/21 10:25 01/24/21 05:25 Urine Collection Type Unknown Urine Color Red Urine Clarity Clear Urine pH 7.5 (<5.0-8.0) Urine Specific [place] 1.020 (1.000-1.030) Urine Protein 100 mg/dL (NEG-TRACE) Urine Glucose (UA) Negative mg/dL (NEG) Urine Ketones (Stick) Negative mg/dL (NEG) Urine Blood Large (NEG) Urine Nitrite Negative (NEG) Urine Bilirubin Negative (NEG) Urine Urobilinogen Dipstick 1.0 mg/dL (0.2 mg/dL) Urine Leukocyte Esterase Small (NEG) Urine RBC 6-10 /HPF (0-2) Urine WBC 0 /HPF (0-4) Urine Squamous Epithelial Cells Few /LPF Urine Transitional Epithelial Cells Few /LPF Urine Bacteria 0 /HPF (0-FEW) Urine Granular Casts Moderate /HPF Sodium Level 133 mmol/L (136-145) 135 mmol/L (136-145) Potassium Level 4.3 mmol/L (3.5-5.1) 4.5 mmol/L (3.5-5.1) Chloride Level 101 mmol/L (98-107) 101 mmol/L (98-107) Carbon Dioxide Level 22 mmol/L (21-32) 22 mmol/L (21-32) Anion Gap 10 (6-14) 12 (6-14) Blood Urea Nitrogen 14 mg/dL (8-26) 18 mg/dL (8-26) Creatinine 1.1 mg/dL (0.7-1.3) 1.0 mg/dL (0.7-1.3) Estimated GFR (Cockcroft-Gault) 71.4 79.8 BUN/Creatinine Ratio 13 (6-20) Glucose Level 134 mg/dL (70-99) 121 mg/dL (70-99) Calcium Level 8.9 mg/dL (8.5-10.1) 9.4 mg/dL (8.5-10.1) Total Bilirubin 0.7 mg/dL (0.2-1.0) Aspartate Amino Transf (AST/SGOT) 676 U/L (15-37) Alanine Aminotransferase (ALT/SGPT) 271 U/L (16-63) Alkaline Phosphatase 90 U/L (46-116) Total Protein 7.5 g/dL (6.4-8.2) Albumin 3.3 g/dL (3.4-5.0) Albumin/Globulin Ratio 0.8 (1.0-1.7) White Blood Count 28.9 x10^3/uL (4.0-11.0) Red Blood Count 4.74 x10^6/uL (4.30-5.70) Hemoglobin 14.8 g/dL (13.0-17.5) Hematocrit 43.3 % (39.0-53.0) Mean Corpuscular Volume 91 fL (79-100) Mean Corpuscular Hemoglobin 31 pg (25-35) Mean Corpuscular Hemoglobin Concent 34 g/dL (31-37) Red Cell Distribution Width 13.7 % (11.5-14.5) Platelet Count 265 x10^3/uL (140-400) Laboratory Tests Test 01/23/21 10:25 01/24/21 05:25 Sodium Level 133 mmol/L (136-145) 135 mmol/L (136-145) Potassium Level 4.3 mmol/L (3.5-5.1) 4.5 mmol/L (3.5-5.1) Chloride Level 101 mmol/L (98-107) 101 mmol/L (98-107) Carbon Dioxide Level 22 mmol/L (21-32) 22 mmol/L (21-32) Anion Gap 10 (6-14) 12 (6-14) Blood Urea Nitrogen 14 mg/dL (8-26) 18 mg/dL (8-26) Creatinine 1.1 mg/dL (0.7-1.3) 1.0 mg/dL (0.7-1.3) Estimated GFR (Cockcroft-Gault) 71.4 79.8 BUN/Creatinine Ratio 13 (6-20) Glucose Level 134 mg/dL (70-99) 121 mg/dL (70-99) Calcium Level 8.9 mg/dL (8.5-10.1) 9.4 mg/dL (8.5-10.1) Total Bilirubin 0.7 mg/dL (0.2-1.0) Aspartate Amino Transf (AST/SGOT) 676 U/L (15-37) Alanine Aminotransferase (ALT/SGPT) 271 U/L (16-63) Alkaline Phosphatase 90 U/L (46-116) Total Protein 7.5 g/dL (6.4-8.2) Albumin 3.3 g/dL (3.4-5.0) Albumin/Globulin Ratio 0.8 (1.0-1.7) White Blood Count 28.9 x10^3/uL (4.0-11.0) Red Blood Count 4.74 x10^6/uL (4.30-5.70) Hemoglobin 14.8 g/dL (13.0-17.5) Hematocrit 43.3 % (39.0-53.0) Mean Corpuscular Volume 91 fL (79-100) Mean Corpuscular Hemoglobin 31 pg (25-35) Mean Corpuscular Hemoglobin Concent 34 g/dL (31-37) Red Cell Distribution Width 13.7 % (11.5-14.5) Platelet Count 265 x10^3/uL (140-400) Medications Current Medications Heparin Sodium (Porcine) (Heparin Sodium) 10,000 unit [employer] ONCE .ROUTE ; Start 01/21/21 at 09:18; Stop 01/21/21 at 09:18; Status DC Midazolam HCl (Versed) 5 mg 1X ONCE NS Last administered on 01/21/21at 08:00; Start 01/21/21 at 09:30; Stop 01/21/21 at 09:52; Status DC Epinephrine HCl (Adrenalin) 1 mg STK-MED ONCE .ROUTE ; Start 01/21/21 at 09:43; Stop 01/21/21 at 09:44; Status DC Epinephrine HCl (EPINEPHrine SYRINGE) 1 mg STK-MED ONCE .ROUTE ; Start 01/21/21 at 09:44; Stop 01/21/21 at 09:44; Status DC Dopamine HCl/ Dextrose 250 ml @ As Directed STK-MED ONCE IV ; Start 01/21/21 at 09:46; Stop 01/21/21 at 09:47; Status DC Bivalirudin (Angiomax) 250 mg STK-MED ONCE IV ; Start 01/21/21 at 09:53; Stop 01/21/21 at 09:53; Status DC Nitroglycerin (Nitroglycerin) 200 mcg STK-MED ONCE .ROUTE ; Start 01/21/21 at 10:00; Stop 01/21/21 at 10:00; Status DC Heparin Sodium (Porcine) (Heparin Sodium) 10,000 unit STK-MED ONCE .ROUTE ; Start 01/21/21 at 10:05; Stop 01/21/21 at 10:05; Status DC Nitroglycerin (Nitroglycerin) 200 mcg 1X ONCE IART Last administered on 01/21/21at 09:59; Start 01/21/21 at 10:30; Stop 01/21/21 at 10:32; Status DC Heparin Sodium/ Sodium Chloride (HEPARIN for ARTERIAL LINE FLUSH) 1,000 unit 1X ONCE IART Last administered on 01/21/21at 10:30; Start 01/21/21 at 10:30; Stop 01/21/21 at 10:32; Status DC Heparin Sodium/ Sodium Chloride (HEPARIN for ARTERIAL LINE FLUSH) 1,000 unit 1X ONCE IART Last administered on 01/21/21at 10:30; Start 01/21/21 at 10:30; Stop 01/21/21 at 10:32; Status DC Iodixanol (Visipaque 320) 100 ml 1X ONCE IART Last administered on 01/21/21at 10:30; Start 01/21/21 at 10:30; Stop 01/21/21 at 10:32; Status DC Bivalirudin (Angiomax) 250 mg 1X ONCE IV Last administered on 01/21/21at 09:54; Start 01/21/21 at 10:30; Stop 01/21/21 at 10:32; Status DC Lidocaine HCl (Lidocaine 1% 20ml Vial) 20 ml 1X ONCE INJ Last administered on 01/21/21at 09:49; Start 01/21/21 at 10:30; Stop 01/21/21 at 10:32; Status DC Dopamine HCl/ Dextrose 250 ml @ 14.438 mls/ hr 1X ONCE IV Last administered on 01/21/21at 09:48; Start 01/21/21 at 10:30; Stop 01/21/21 at 14:04; Status DC Epinephrine HCl (EPINEPHrine SYRINGE) 1.5 mg 1X ONCE IV Last administered on 01/21/21at 09:57; Start 01/21/21 at 10:15; Stop 01/21/21 at 10:29; Status DC Clopidogrel Bisulfate (Plavix) 600 mg 1X ONCE PO Last administered on 01/21/21at 10:30; Start 01/21/21 at 10:30; Stop 01/21/21 at 10:32; Status DC Aspirin (Yung Aspirin) 325 mg 1X ONCE PO Last administered on 01/21/21at 10:30; Start 01/21/21 at 10:30; Stop 01/21/21 at 15:44; Status DC Heparin Sodium (Porcine) (Heparin 5,000 Units/1,000ml NS) 5,000 unit 1X ONCE IV Last administered on 01/21/21at 10:05; Start 01/21/21 at 10:30; Stop 01/21/21 at 10:32; Status DC Sodium Chloride 1,000 ml @ 75 mls/hr [id number] IV ; Start 01/21/21 at 10:30; Stop 01/23/21 at 15:09; Status DC Aspirin (Ecotrin) 325 mg DAILYWBKFT PO ; Start 01/22/21 at 08:00; Stop 01/21/21 at 10:34; Status DC Clopidogrel Bisulfate (Plavix) 75 mg DAILYWBKFT PO ; Start 01/22/21 at 08:00; Stop 01/21/21 at 10:34; Status DC Atorvastatin Calcium (Lipitor) 40 mg QHS PO ; Start 01/21/21 at 21:00; Stop 01/21/21 at 10:34; Status DC Aspirin (Ecotrin) 325 mg DAILYWBKFT PO ; Start 01/22/21 at 08:00; Stop 01/21/21 at 17:18; Status DC Clopidogrel Bisulfate (Plavix) 75 mg DAILYWBKFT PO Last administered on 01/24/21at 08:28; Start 01/22/21 at 08:00 Atorvastatin Calcium (Lipitor) 40 mg QHS PO Last administered on 01/21/21at 21:09; Start 01/21/21 at 21:00; Stop 01/23/21 at 08:11; Status DC Etomidate (Amidate) 20 mg STK-MED ONCE IV ; Start 01/21/21 at 11:01; Stop 01/21/21 at 11:01; Status DC Vecuronium [place] (Norcuron Bolus) 10 mg STK-MED ONCE IV ; Start 01/21/21 at 11:01; Stop 01/21/21 at 11:01; Status DC Succinylcholine Chloride (Anectine) 200 mg STK-MED ONCE .ROUTE ; Start 01/21/21 at 11:03; Stop 01/21/21 at 11:03; Status DC Norepinephrine Bitartrate 8 mg/ Dextrose 258 ml @ 14.9 mls/hr CONT PRN IV PER PROTOCOL Last administered on 01/21/21at 12:00; Start 01/21/21 at 11:15; Stop 01/21/21 at 15:38; Status DC Lorazepam (Ativan Inj) 2 mg STK-MED ONCE .ROUTE ; Start 01/21/21 at 11:20; St op 01/21/21 at 11:20; Status DC Fentanyl Citrate (Fentanyl 2ml Vial) 25 mcg PRN Q1HR PRN IV SEE COMMENTS; Start 01/21/21 at 11:30; Stop 01/21/21 at 15:44; Status DC Fentanyl Citrate (Fentanyl 2ml Vial) 50 mcg PRN Q1HR PRN IV SEE COMMENTS; Start 01/21/21 at 11:30; Stop 01/21/21 at 15:44; Status DC Morphine Sulfate (Morphine Sulfate) 2 mg PRN Q1HR PRN IV SEE COMMENTS.; Start 01/21/21 at 11:30; Status Cancel Morphine Sulfate (Morphine Sulfate) 4 mg PRN Q1HR PRN IV SEE COMMENTS.; Start 01/21/21 at 11:30; Status Cancel Lorazepam (Ativan Inj) 0.5 mg PRN Q6HRS PRN IVP ANXIETY / AGITATION; Start 01/21/21 at 13:00; Stop 01/21/21 at 15:44; Status DC Lorazepam (Ativan) 1 mg PRN Q6HRS PRN PO ANXIETY / AGITATION (2ND) Last administered on 01/22/21at 16:47; Start 01/21/21 at 13:00 Ondansetron HCl (Zofran) 4 mg PRN Q6HRS PRN IVP NAUSEA/VOMITING; Start 01/21/21 at 13:00 Al Hydroxide/Mg Hydroxide (Mylanta Plus Xs) 30 ml PRN Q3HRS PRN PO HEARTBURN / GAS; Start 01/21/21 at 13:00 Calcium Carbonate/ Glycine (Tums) 500 mg PRN Q3HRS PRN PO HEARTBURN / GAS; Start 01/21/21 at 13:00 Famotidine (Pepcid Vial) 20 mg BID IVP Last administered on 01/24/21at 08:29; Start 01/21/21 at 21:00 Heparin Sodium (Porcine) (Heparin Sodium) 5,000 unit Q8HRS SQ ; Start 01/21/21 at 14:00; Stop 01/21/21 at 13:40; Status DC Sodium Chloride (Normal Saline Flush) 3 ml QSHIFT PRN IV AFTER MEDS AND BLOOD DRAWS; Start 01/21/21 at 13:00 Morphine Sulfate (Morphine Sulfate) 2 mg PRN Q1HR PRN IV PAIN; Start 01/21/21 at 13:00 Lorazepam (Ativan Inj) 2 mg PRN Q10MIN PRN IVP SEE COMMENTS; Start 01/21/21 at 13:30 Midazolam HCl (Versed) 5 mg STK-MED ONCE .ROUTE ; Start 01/21/21 at 13:33; Stop 01/21/21 at 13:33; Status DC Midazolam HCl (Versed) 5 mg 1X ONCE IV Last administered on 01/21/21at 13:45; Start 01/21/21 at 13:45; Stop 01/21/21 at 13:51; Status DC Heparin Sodium/ Dextrose 250 ml @ 9.24 mls/hr CONT PRN IV PER PROTOCOL Last administered on 01/22/21at 09:54; Start 01/21/21 at 13:45; Stop 01/23/21 at 10:02; Status DC Heparin Sodium (Porcine) (Heparin Sodium) 1,950 unit PRN Q6HRS PRN IV FOR UFH LEVEL LESS THAN 0.2; Start 01/21/21 at 13:45; Stop 01/23/21 at 10:02; Status DC Fentanyl Citrate (Fentanyl 2ml Vial) 100 mcg 1X ONCE IV ; Start 01/21/21 at 13:30; Stop 01/21/21 at 15:44; Status DC Midazolam HCl (Versed) 2 mg 1X ONCE IV ; Start 01/21/21 at 13:30; Stop 01/22/21 at 13:03; Status DC Magnesium Sulfate/ Dextrose 100 ml @ 100 mls/hr 1X ONCE IV ; Start 01/21/21 at 13:30; Stop 01/21/21 at 15:44; Status DC Buspirone HCl (Buspar) 30 mg Q8H NG ; Start 01/21/21 at 14:00; Stop 01/21/21 at 15:44; Status DC Acetaminophen (Tylenol) 650 mg Q4HRS NG ; Start 01/21/21 at 14:00; Stop 01/21/21 at 15:44; Status DC Glycerin/ Hypromellose/ Polyethylene (Artificial Tears) 1 drop Q6HRS OU Last administered on 01/21/21at 18:00; Start 01/21/21 at 18:00; Stop 01/22/21 at 13:03; Status DC Glycerin/ Hypromellose/ Polyethylene (Artificial Tears) 1 drop PRN Q15MIN PRN OU DRY EYE; Start 01/21/21 at 13:30; Stop 01/22/21 at 13:03; Status DC Pantoprazole Sodium (PROTONIX VIAL for IV PUSH) 40 mg DAILY IVP ; Start 01/21/21 at 14:00; Stop 01/21/21 at 15:44; Status DC Fentanyl Citrate 30 ml @ 0 mls/hr CONT PRN IV PER PROTOCOL. Last administered on 01/22/21at 09:49; Start 01/21/21 at 13:30; Stop 01/22/21 at 13:03; Status DC Midazolam HCl 100 ml @ 2 mls/hr CONT PRN IV PER PROTOCOL Last administered on 01/22/21at 00:37; Start 01/21/21 at 13:30; Stop 01/22/21 at 13:03; Status DC Vecuronium [place] (Norcuron Bolus) 8 mg PRN Q1HR PRN IV SHIVERING; Start 01/21/21 at 13:30; Stop 01/21/21 at 15:44; Status DC Sodium Bicarbonate 150 meq/Dextrose 1,150 ml @ 75 mls/hr [id number] IV Last administered on 01/22/21at 05:41; Start 01/21/21 at 14:00; Stop 01/22/21 at 13:46; Status DC Dopamine HCl/ Dextrose 250 ml @ 14.438 mls/ hr CONT PRN IV SEE I/O RECORD Last administered on 01/21/21at 14:00; Start 01/21/21 at 14:00 Aspirin (Yung Aspirin) 325 mg DAILYWBKFT PO Last administered on 01/24/21at 08:28; Start 01/22/21 at 08:00 Norepinephrine Bitartrate 8 mg/ Dextrose 258 ml @ 14.9 mls/hr CONT PRN IV PER PROTOCOL; Start 01/21/21 at 20:45 Thiamine Mononitrate (Vitamin B-1) 100 mg DAILY PO Last administered on 01/24/21at 08:28; Start 01/23/21 at 09:00 Thiamine HCl 100 mg/Dextrose 51 ml @ 102 mls/hr 1X ONCE IV Last administered on 01/22/21at 12:00; Start 01/22/21 at 12:00; Stop 01/22/21 at 12:29; Status DC Vitamin B Complex/ Vitamin C (Jennifer-Thalia) 1 tab DAILY PO Last administered on 01/24/21at 08:28; Start 01/23/21 at 09:00 Insulin Human Lispro (HumaLOG) 0-7 UNITS TIDWMEALS SQ ; Start 01/22/21 at 12:00 Dextrose (Dextrose 50%-Water Syringe) 12.5 gm PRN Q15MIN PRN IV SEE COMMENTS; Start 01/22/21 at 11:45 Dexamethasone Sodium Phosphate (Decadron) 6 mg DAILY IVP Last administered on 01/24/21 08:28; Start 01/22/21 at 13:00 Zinc Sulfate (Orazinc) 220 mg DAILY PO Last administered on 01/24/21 08:28; Start 01/22/21 at 13:00 Amiodarone HCl (Cordarone) 300 mg STK-MED ONCE .ROUTE ; Start 01/21/21 at 09:46; Stop 01/22/21 at 16:05; Status DC Epinephrine HCl (EPINEPHrine SYRINGE) 2 mg STK-MED ONCE .ROUTE ; Start 01/21/21 at 09:46; Stop 01/22/21 at 16:05; Status DC Fentanyl Citrate (Fentanyl 2ml Vial) 50 mcg PRN Q4HRS PRN IVP PAIN Last administered on 01/22/21at 16:47; Start 01/22/21 at 16:45 Amlodipine Besylate (Norvasc) 10 mg DAILY PO Last administered on 01/24/21 08:29; Start 01/23/21 at 09:00 Clonazepam (KlonoPIN) 0.5 mg PRN BID PRN PO ANXIETY / AGITATION Last administered on 01/23/21at 08:55; Start 01/23/21 at 07:45 Hydroxyzine HCl (Atarax) 25 mg TID PO Last administered on 01/24/21 08:28; Start 01/23/21 at 09:00 Ascorbic Acid (Vitamin C) 500 mg BID PO Last administered on 01/24/21 08:28; Start 01/23/21 at 09:00 Buspirone HCl (Buspar) 15 mg BID PO Last administered on 01/24/21 08:28; Start 01/23/21 at 09:00 Multivitamins (Thera M Plus) 1 tab DAILY PO Last administered on 01/24/21 08:28; Start 01/23/21 at 09:00 Metoprolol Tartrate (Lopressor) 25 mg BID PO Last administered on 01/24/21 08:29; Start 01/23/21 at 09:00 Active Scripts Active Reported Hydroxyzine Hcl 25 Mg Tablet 1 Tab PO BID Buspirone Hcl 15 Mg Tablet 1 Tab PO BID Clonazepam 0.5 Mg Tablet 0.5 Mg PO BID PRN Vitamin C (Ascorbic Acid) 500 Mg Capsule 1 Cap PO BID 28 Days Multi Vitamin Daily (Multivitamin) 1 Each Tablet 1 Tab PO DAILY 30 Days Norvasc (Amlodipine Besylate) 10 Mg Tablet 10 Mg PO DAILY Vitals/I & O Vital Sign - Last 24 Hours 01/23/21 01/23/21 01/23/21 01/23/21 12:42 17:00 20:14 20:31 Temp 98.7 98.6 98.3 98.7 98.6 98.3 Pulse 92 110 107 111 Resp 18 18 17 B/P (MAP) 151/87 (108) 126/89 (101) 144/71 178/90 (119) Pulse Ox 92 92 92 O2 Delivery Nasal Cannula Nasal Cannula Room Air O2 Flow Rate 2.0 2.0 01/23/21 01/24/21 01/24/21 01/24/21 23:35 04:00 08:29 08:29 Temp 98.7 98.7 Pulse 90 96 96 96 Resp 17 17 B/P (MAP) 147/87 (107) 146/84 (104) 146/84 146/84 Pulse Ox 94 O2 Delivery Room Air Room Air Intake and Output 01/23/21 01/23/21 01/24/21 15:00 23:00 07:00 Intake Total 480 ml Output Total 600 ml 850 ml Balance -120 ml -850 ml Justicifation of Admission Dx: Justifications for Admission: Justification of Admission Dx: N/A SUSANA JOHANSEN MD Jan 24, 2021 09:33
[2021-01-24] MEDS: clonazePAM 0.5 MG TABLET PO PRN (10:02)
[2021-01-24] MEDS ORDERED: IODIXANOL 320 MG/ML 100 ML VIAL. ONE (10:51)
[2021-01-24] MEDS ORDERED: METO25TA4 PO (12:16)
[2021-01-24] MEDS ORDERED: CLOP75TA PO (12:16)
[2021-01-24] MEDS ORDERED: ASPI325T8 PO (12:16)
--- NOTE | 2021-01-24 12:20 | SNU/HH DC ---
DISCHARGE WITH HOME HEALTH DISCHARGE INFORMATION: Discharge Date: Jan 24, 2021 Final Diagnosis: STEMI statin allergy cardiac arrest with cardiogenic shock, acute systolic CHF htn right leg reperfusion injury Problems Medical Problems: (1) STEMI (ST elevation myocardial infarction) Status: Acute Condition on Discharge: Stable CODE STATUS: Code Status: Full HOME HEALTH: Face to Face: I certify this patient is under my care and that I, had a face to face encounter that meets the physician face to face encounter requirements with this patient on 01/24/21 Medical Complications: [place] (STEMI) Jail For: Assess Cardiopulm Status, Medication Management RN For Eval/Treatment: Yes Physical Therapy For: Evalulation/Treatment (right leg injry) Occupational Therapy For: Evaluation/Treatment Pt Meets Homebound Status: Fatigue w/ amb., Other: (can use walker for 3 minutes only) POST DISCHARGE ORDERS: Activity Instructions for Disc: Activity as tolerated Weight Bearing Status after Di: Full weight bearing DIET AFTER DISCHARGE: Cardiac CHECKS AFTER DISCHARGE: Checks after discharge: Check blood press - daily FOLLOW-UP: Follow up with: Raman Follow Up With: radha medina TREATMENT/EQUIPMENT ORDERS: Adaptive Equipment Issued: Front wheeled walker CERTIFICATION STATEMENT: Certification Statement: Certification Statement: Based on the above finding, I certify that this patient is confined to the home and needs intermittent intermediate care, physical therapy and/or speech therapy, or continues to need occupational therapy.~ This patient is under my care, and I have initiated the establishment of the plan of care.~ This patient will be followed by myself or a community physician who will periodically review the plan of care. Home Meds Active Scripts Aspirin (ASPIRIN) 325 Mg Tablet, 325 MG PO DAILYWBKFT for cardiac, #100 TAB Prov:ADRY SEGOVIA MD 01/24/21 Clopidogrel Bisulfate (CLOPIDOGREL) 75 Mg Tablet, 75 MG PO DAILYWBKFT for Cardiac stent, #30 TAB 9 Refills Prov:ADRY SEGOVIA MD 01/24/21 Metoprolol Tartrate (METOPROLOL TARTRATE) 25 Mg Tablet, 25 MG PO BID for CArdiac, #60 TAB 1 Refill Prov:ADRY SEGOVIA MD 01/24/21 Reported Medications Hydroxyzine Hcl (HYDROXYZINE HCL) 25 Mg Tablet, 1 TAB PO BID for anxiety, #30 TAB 01/22/21 Buspirone Hcl (BUSPIRONE HCL) 15 Mg Tablet, 1 TAB PO BID for anxiety, #60 TAB 01/22/21 Clonazepam (Clonazepam) 0.5 Mg Tablet, 0.5 MG PO BID PRN for ANXIETY / AGITATION, TAB 01/22/21 Ascorbic Acid (Vitamin C) 500 Mg Capsule, 1 CAP PO BID for supplement for 28 Days, #56 CAP 0 Refills 01/22/21 Multivitamin (MULTI VITAMIN DAILY) 1 Each Tablet, 1 TAB PO DAILY for supplement for 30 Days, #30 TAB 0 Refills 01/22/21 Amlodipine Besylate (NORVASC) 10 Mg Tablet, 10 MG PO DAILY for htn, TAB 01/22/21 ADRY SEGOVIA MD Jan 24, 2021 12:20
--- NOTE | 2021-01-24 12:25 | PDOC3 ---
Discharge Summary Visit Information Date of Admission: Jan 21, 2021 Date of Discharge: Jan 24, 2021 Final Diagnosis STEMI statin allergy cardiac arrest with cardiogenic shock, acute systolic CHF shocked x5, CPR in field htn right leg reperfusion injury, and new weakness gen anxiety disorder Problems Medical Problems: (1) STEMI (ST elevation myocardial infarction) Status: Acute Brief Hospital Course Allergies Allergies Coded Allergies Type Severity Reaction Last Updated Verified Penicillins Allergy Intermediate 01/22/21 Yes [id number] Reductase Inhibitor Allergy Intermediate 01/22/21 Yes Sulfa (Sulfonamide Antibiotics) Allergy Intermediate 01/22/21 Yes gabapentin Allergy Intermediate 01/22/21 Yes levofloxacin Allergy Intermediate 01/22/21 Yes phenytoin Allergy Intermediate 01/22/21 Yes valproic acid Allergy Intermediate 01/22/21 Yes Vital Signs Vital Signs Date Time Temp Pulse Resp B/P (MAP) Pulse Ox O2 Delivery O2 Flow Rate FiO2 01/24/21 09:00 98.7 93 20 157/98 (117) 100 Nasal Cannula 2.0 98.7 Lab Results Laboratory Tests Test 01/22/21 16:50 01/23/21 10:25 01/24/21 05:25 Urine Collection Type Unknown Urine Color Red Urine Clarity Clear Urine pH 7.5 (<5.0-8.0) Urine Specific Alpine 1.020 (1.000-1.030) Urine Protein 100 mg/dL (NEG-TRACE) Urine Glucose (UA) Negative mg/dL (NEG) Urine Ketones (Stick) Negative mg/dL (NEG) Urine Blood Large (NEG) Urine Nitrite Negative (NEG) Urine Bilirubin Negative (NEG) Urine Urobilinogen Dipstick 1.0 mg/dL (0.2 mg/dL) Urine Leukocyte Esterase Small (NEG) Urine RBC 6-10 /HPF (0-2) Urine WBC 0 /HPF (0-4) Urine Squamous Epithelial Cells Few /LPF Urine Transitional Epithelial Cells Few /LPF Urine Bacteria 0 /HPF (0-FEW) Urine Granular Casts Moderate /HPF Sodium Level 133 mmol/L (136-145) 135 mmol/L (136-145) Potassium Level 4.3 mmol/L (3.5-5.1) 4.5 mmol/L (3.5-5.1) Chloride Level 101 mmol/L (98-107) 101 mmol/L (98-107) Carbon Dioxide Level 22 mmol/L (21-32) 22 mmol/L (21-32) Anion Gap 10 (6-14) 12 (6-14) Blood Urea Nitrogen 14 mg/dL (8-26) 18 mg/dL (8-26) Creatinine 1.1 mg/dL (0.7-1.3) 1.0 mg/dL (0.7-1.3) Estimated GFR (Cockcroft-Gault) 71.4 79.8 BUN/Creatinine Ratio 13 (6-20) Glucose Level 134 mg/dL (70-99) 121 mg/dL (70-99) Calcium Level 8.9 mg/dL (8.5-10.1) 9.4 mg/dL (8.5-10.1) Total Bilirubin 0.7 mg/dL (0.2-1.0) Aspartate Amino Transf (AST/SGOT) 676 U/L (15-37) Alanine Aminotransferase (ALT/SGPT) 271 U/L (16-63) Alkaline Phosphatase 90 U/L (46-116) Total Protein 7.5 g/dL (6.4-8.2) Albumin 3.3 g/dL (3.4-5.0) Albumin/Globulin Ratio 0.8 (1.0-1.7) White Blood Count 28.9 x10^3/uL (4.0-11.0) Red Blood Count 4.74 x10^6/uL (4.30-5.70) Hemoglobin 14.8 g/dL (13.0-17.5) Hematocrit 43.3 % (39.0-53.0) Mean Corpuscular Volume 91 fL (79-100) Mean Corpuscular Hemoglobin 31 pg (25-35) Mean Corpuscular Hemoglobin Concent 34 g/dL (31-37) Red Cell Distribution Width 13.7 % (11.5-14.5) Platelet Count 265 x10^3/uL (140-400) Laboratory Tests Test 01/24/21 05:25 White Blood Count 28.9 x10^3/uL (4.0-11.0) Red Blood Count 4.74 x10^6/uL (4.30-5.70) Hemoglobin 14.8 g/dL (13.0-17.5) Hematocrit 43.3 % (39.0-53.0) Mean Corpuscular Volume 91 fL (79-100) Mean Corpuscular Hemoglobin 31 pg (25-35) Mean Corpuscular Hemoglobin Concent 34 g/dL (31-37) Red Cell Distribution Width 13.7 % (11.5-14.5) Platelet Count 265 x10^3/uL (140-400) Sodium Level 135 mmol/L (136-145) Potassium Level 4.5 mmol/L (3.5-5.1) Chloride Level 101 mmol/L (98-107) Carbon Dioxide Level 22 mmol/L (21-32) Anion Gap 12 (6-14) Blood Urea Nitrogen 18 mg/dL (8-26) Creatinine 1.0 mg/dL (0.7-1.3) Estimated GFR (Cockcroft-Gault) 79.8 Glucose Level 121 mg/dL (70-99) Calcium Level 9.4 mg/dL (8.5-10.1) Brief Hospital Course Mr. Mccracken is a 50 old admit for [id number] cardiopulmonary arrest. In field, EMS gave CPR, saw V-tach, V-Fib needing defibrillation, and a period of PEA EKG showed an acute posterior wall ST segment myocardial infarction. The patient was intubated taken to labor relations director, successful PCI and drug-eluting stent placement in the left circumflex artery, that was 100% blocked. He had borderline normal left ventricular systolic function at 50%. he was comatose for a few hours, but he has recall of events then, Neuro consulted, no residual. RIght leg lost pulse when balloon pump was in for acute systolci CHF, and post arrest care. rigth leg imrpoving at DC< str better, reperfusion injury, will have PT follow, CT angio runoff done before DC Discharge Information Condition at Discharge: Improved Follow Up: Weeks Disposition/Orders: D/C to Home w/ HH Scheduled Amlodipine Besylate (Norvasc) 10 Mg Tablet, 10 MG PO DAILY for htn, (Reported) Entered as Reported by: BARRERA FABIAN on 01/22/21 8654 Last Taken: UNKNOWN on Unknown Date & Time Last Action: Continued on 01/23/21 0742 by BARRERA FABIAN Ascorbic Acid (Vitamin C) 500 Mg Capsule, 1 CAP PO BID for supplement for 28 Days, #56 Ref 0 (Reported) Entered as Reported by: BARRERA FABIAN on 01/22/211903 Last Taken: UNKNOWN on Unknown Date & Time Last Action: Converted on 01/23/21741 by BARRERA FABIAN Aspirin (Aspirin) 325 Mg Tablet, 325 MG PO DAILYWBKFT for cardiac, #100 Prescribed by: ADRY SEGOVIA on 01/24/21 1216 Buspirone Hcl (Buspirone Hcl) 15 Mg Tablet, 1 TAB PO BID for anxiety, #60 (Reported) Entered as Reported by: BARRERA FABIAN on 01/22/211903 Last Taken: UNKNOWN on Unknown Date & Time Last Action: Converted on 01/23/21741 by BARRERA FABIAN Clopidogrel Bisulfate (Clopidogrel) 75 Mg Tablet, 75 MG PO DAILYWBKFT for Cardiac stent, #30 Ref 9 Prescribed by: ADRY SEGOVIA on 01/24/21 1216 Hydroxyzine Hcl (Hydroxyzine Hcl) 25 Mg Tablet, 1 TAB PO BID for anxiety, #30 (Reported) Entered as Reported by: BARRERA FABIAN on 01/22/211903 Last Taken: UNKNOWN on Unknown Date & Time Last Action: Edited on 1507 by BARRERA FABIAN Metoprolol Tartrate (Metoprolol Tartrate) 25 Mg Tablet, 25 MG PO BID for CArdiac , #60 Ref 1 Prescribed by: ADRY SEGOVIA on 01/24/21 1216 Multivitamin (Multi Vitamin Daily) 1 Each Tablet, 1 TAB PO DAILY for supplement for 30 Days, #30 Ref 0 (Reported) Entered as Reported by: BARRERA FABIAN on 01/22/211903 Last Taken: UNKNOWN on Unknown Date & Time Last Action: Converted on 01/23/21741 by BARRERA FABIAN Scheduled PRN Clonazepam (Clonazepam) 0.5 Mg Tablet, 0.5 MG PO BID PRN for ANXIETY / AGITATION, (Reported) Entered as Reported by: BARRERA FABIAN on 01/22/211903 Last Taken: UNKNOWN on Unknown Date & Time Last Action: Continued on 01/23/21741 by BARRERA FABIAN Patient Instructions Patient Instructions > 30 min 2 visits face to face did well with 6 min walk for no hypoxia, leg limited distance to 3 minutes Justicifation of Admission Dx: Justifications for Admission: Justification of Admission Dx: N/A ADRY SEGOVIA MD Jan 24, 2021 12:25
[2021-01-24] MEDS ORDERED: LIDOCAINE 1% PF 2 ML VIAL. ONE (13:27)
[2021-01-24] MEDS ORDERED: VERAPAMIL 5 MG/2 ML VIAL. ONE (13:33)
[2021-01-24] MEDS ORDERED: fentaNYL PF VIAL 100 MCG/2 ML VIAL ONE (13:33)
[2021-01-24] MEDS ORDERED: MIDAZOLAM HCL/PF 5 MG/5 ML VIAL. ONE (13:33)
[2021-01-24] MEDS ORDERED: HEPARIN for IV BOLUS 10,000 UNIT/10 ML VIAL. ONE (13:33)
--- NOTE | 2021-01-24 13:45 | NUR ---
Pt to cath lab radiological technologist via bed for femoral run off study.
[2021-01-24] MEDS ORDERED: NITROGLYCERIN 200 MCG/2 ML SYRINGE FOR CATH/VASC LAB. ONE (14:00)
--- NOTE | 2021-01-24 14:01 | NUR ---
SS following up with discharge planning. SS reviewed pt chart and discussed with pt RN. Pt is currently on room air. COVID19 positive. Pt going to [employer]upal [employer]p Developer for Femoral Runoff. Discharge orders received for home with home healthcare. Pt lives in [place], [place]. Pt has [employer] insurance. Copy of card received. SS phoned and faxed discharge order and referral to [facility], ; fax [phone]. Pt's RN notified.
[2021-01-24] MEDS ORDERED: diphenhydrAMINE 50 MG/ML VIAL ONE (14:21)
[2021-01-24] MEDS ORDERED: fentaNYL PF VIAL 100 MCG/2 ML VIAL IV ONE (14:45)
[2021-01-24] MEDS ORDERED: NITROGLYCERIN 200 MCG/2 ML SYRINGE FOR CATH/VASC LAB. IART ONE (14:45)
[2021-01-24] MEDS ORDERED: IODIXANOL 320 MG/ML 100 ML VIAL. IART ONE (14:45)
[2021-01-24] MEDS ORDERED: LIDOCAINE 1% PF 2 ML VIAL. INJ ONE (14:45)
[2021-01-24] MEDS ORDERED: VERAPAMIL 5 MG/2 ML VIAL. IART ONE (14:45)
[2021-01-24] MEDS ORDERED: HEPARIN for IV BOLUS 10,000 UNIT/10 ML VIAL. IART ONE (14:45)
[2021-01-24] MEDS ORDERED: diphenhydrAMINE 50 MG/ML VIAL IVP ONE (14:45)
[2021-01-24] MEDS ORDERED: MIDAZOLAM HCL/PF 5 MG/5 ML VIAL. IV ONE (14:45)
[2021-01-24] MEDS ORDERED: CONTRAST GIVEN. MC PRN (15:00)
[2021-01-24] MEDS ORDERED: ASPI-886 PO (15:07)
[2021-01-24] MEDS ORDERED: APIX5TAB PO (15:07)
--- NOTE | 2021-01-24 15:07 | PDOC ---
MODERATE SEDATION ASSESSMENT RISKS/ALTERNATIVES Risks/Alternatives Risks and alternatives of this type of sedation and procedure discussed with: RISK/ALTERNATIVES: Patient H & P ON CHART H & P H & P on chart and reviewed for co-morbid conditions and appropriate labs. H&P ON CHART: Yes STATUS PREG STATUS ASSESSED: N/A MEDS/ALLERGIES REVIEWED Meds/Allergies Reviewed Medications and Allergies including time and route of recently administered narcotics and sedatives. MEDS/ALLERGIES REVIEWED: Yes ASA RATING ASA RATING: III AIRWAY ASSESSMENT Airway Assessment Airway patency, oral function limitations, presence of caps, crowns, dentures, partials, and ability to extend neck assessed. AIRWAY ASSESSMENT: Yes MALLAMPATI SCORE MALLAMPATI SCORE: II PRE-SEDATION ASSESSMENT PRE-SEDATION ASSESSMENT: Yes MISHEL YOUNGER MD Jan 24, 2021 15:07
--- NOTE | 2021-01-24 15:18 | CARD ---
MR#: [id number] Date of Study: 01/24/2021 Ordering Physician: SURAJ MULLINS, Referring Physician: SURAJ MULLINS, Tech: RT Dann(R) APPROVED REPORT Patient StatusIN-PATIENT Stave Log Ripsaw Operator: RT Dann(R) Procedure(s) performed: Aortogram with bilateral lower extremity runoff MODERATE SEDATION 42 MIN. CONTRAST 66CC FLUORO TIME 4.3 MIN. DOSE [id number] INDICATION FOR PROCEDURE The indication(s) include : 50-year-old male who presented with acute STEMI, cardiac arrest secondary to ventricular fibrillation and cardiogenic shock underwent intra-aortic balloon pump placement and PCI/PEDRO to LCx. He was found to have pulselessness in his right foot when he had the intra-aortic bal loon pump and arterial duplex scan at the time showed flow-limiting occlusion possibly in right commo n femoral artery with very poor distal flow. After the intra-aortic balloon pump was removed, his dis bang pulses improved. He presented today for aortogram with runoff to rule out any significant periphe ral artery disease/thrombus.. CASE TECHNIQUE After explaining the risks, benefits, and alternative options, informed consent was obtained from the patient. IV conscious sedation was used throughout procedure with appropriate monitoring and was per formed in the presence of a registered nurse who was an independent trained observer other than the jeri pan performing the procedure. During this case, Fluoroscopy and low osmolar contrast were used f or imaging. Specimen(s) Removed: No Estimated Blood loss: 15 cc's. PROCEDURE NARRATIVE After explaining the risk, benefits and alternative options, informed consent was obtained from rodri nt. Patient was brought to the cardiac Wire Weaving Loom Setter and his right wrist was prepped and draped in the us ual fashion after confirming a positive modified Av's test. Arterial access was obtained in the r ight radial artery and a 6 Welsh sheath was inserted. A 4 Welsh R2P PV multivurve catheter was the n advanced under fluoroscopy guidance and with the tip positioned in the distal descending aorta, aor to iliac angiography and also right lower extremity angiography was performed. The catheter was then advanced and with the tip positioned in the left common femoral artery, selective left lower extremi ty angiography was performed. Patient tolerated the procedure well. Hemostasis was achieved using T R band. There were no immediate complications. FINDINGS: 1. No significant stenosis involving the distal descending aorta 2. The right common iliac artery showed dissection with possible subintimal hematoma. The dissectio n flap extends into the right external iliac artery. Patient however had good distal flow. The left common and external iliac arteries did not show any significant stenosis. 3. The right common femoral artery did not show any significant stenosis. Small amount of thrombus was noted in the proximal segment of the right profunda femoris. The left common femoral and profund a femoris arteries did not show any significant stenosis. 4. The superficial femoral arteries bilaterally did not show any significant stenosis. 5. No significant stenosis noted in bilateral popliteal arteries with good three vessel distal flow below the knee. 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 Small amou nt of thrombus in the right profunda femoris arteries. Recommendations Recommend medical management since patient has good distal flow. We will anticoagulate with Eliquis and repeat angiography in 4 to 6 weeks. Signed by : Cornelius Camargo, Electronically Approved : 01/24/2021 15:17:33
--- NOTE | 2021-01-24 18:40 | NUR ---
Pt discharged at 1815 via wheelchair with all belongings with . Both pt and verbalized understanding of discharge instructions and medications. Arm board to stay on till 1500 01/25/21.
[2021-01-24] MEDS ORDERED: APIXABAN 5 MG TABLET. PO SCH (21:00)
[2021-01-25] MEDS ORDERED: ASPIRIN ENTERIC COATED 81 MG TABLET.DR. PO SCH (08:00)
== END 2021-01-24 18:15 | disposition home or self-care (01) | DRG 270 ==
LOC: ER 09:08 → EDBD 09:33 → 1 WEST ICU 09:33
PROVIDERS: ADMIT Family Medicine; ATTEND Family Medicine
PROC: 5A1945Z Respiratory Ventilation, 24-96 Consecutive Hours (ICD-10-PCS; principal; 2021-01-21)
PROC: 5A02210 Assistance with Cardiac Output using Balloon Pump, Continuous (ICD-10-PCS; 2021-01-21)
PROC: 027034Z Dilation of Coronary Artery, One Artery with Drug-eluting Intraluminal Device, Percutaneous Approach (ICD-10-PCS; 2021-01-21)
PROC: B41D1ZZ Fluoroscopy of Aorta and Bilateral Lower Extremity Arteries using Low Osmolar Contrast (ICD-10-PCS; 2021-01-21)
PROC: 4A023N7 Measurement of Cardiac Sampling and Pressure, Left Heart, Percutaneous Approach (ICD-10-PCS; 2021-01-21)
PROC: B2151ZZ Fluoroscopy of Left Heart using Low Osmolar Contrast (ICD-10-PCS; 2021-01-21)
PROC: B2111ZZ Fluoroscopy of Multiple Coronary Arteries using Low Osmolar Contrast (ICD-10-PCS; 2021-01-21)
PROC: 0BH17EZ Insertion of Endotracheal Airway into Trachea, Via Natural or Artificial Opening (ICD-10-PCS; 2021-01-24)
DX: I21.29 ST elevation (STEMI) myocardial infarction involving other sites (principal); I46.9 Cardiac arrest, cause unspecified; I49.01 Ventricular fibrillation; I50.41 Acute combined systolic (congestive) and diastolic (congestive) heart failure; J96.01 Acute respiratory failure with hypoxia; R40.20 Unspecified coma; R57.0 Cardiogenic shock; U07.1 COVID-19; E87.2 Acidosis; G93.1 Anoxic brain damage, not elsewhere classified; I47.2 Ventricular tachycardia; E87.5 Hyperkalemia; F10.10 Alcohol abuse, uncomplicated; F17.210 Nicotine dependence, cigarettes, uncomplicated; F41.1 Generalized anxiety disorder; G40.909 Epilepsy, unspecified, not intractable, without status epilepticus; I11.0 Hypertensive heart disease with heart failure; I25.10 Atherosclerotic heart disease of native coronary artery without angina pectoris; I34.0 Nonrheumatic mitral (valve) insufficiency; I77.1 Stricture of artery; Z88.8 Allergy status to other drugs, medicaments and biological substances; Z98.61 Coronary angioplasty status
CPT/HCPCS: 31500; 33967; 33968; 36245; 36415; 36600; 71045; 75625; 75716; 80048; 80053; 80061; 80076; 80307; 81001; 81002; 82805; 83036; 83690; 83735; 83880; 84478; 84484; 85007; 85025; 85027; 85520; 87426; 92941; 92950; 93005; 93306; 93458; 93923; 94002; 94003; 94618; 94760; 99152; 99153; C1725; C1769; C1874; C1894; J0171; J0282; J0583; J1100; J1200; J1265; J1644; J1815; J2250; J3010; J3411; J3490; J7060; Q9967; U0003; U0005; 99285-25; G0378